=== PATIENT | female | born 1965 | race American Indian/Alaskan Native ===

== ENCOUNTER 2016-09-26 11:22 | Emergency (ER) | payer SELFPAY ==
[2016-09-26 11:40] VITALS: BP 122/75
--- NOTE | 2016-09-26 11:53 | Emergency Department Report ---
Chief Complaint: Nausea/Vomiting/Diarrhea Stated Complaint: STOMASCH VIRUS/NAUSEA/WEAKNESS Time Seen by Provider: 09/26/16 11:50 - HPI History of Present Illness: 51-year-old female with no prior history of present shortly nausea vomiting diarrhea 3 days. Patient states intermittent vomiting with intermittent nonbloody diarrhea. She denies abdominal pain, fever, chills, shortness of breath, chest pain - ROS Review of Systems: As noted in HPI - Exam Vital Signs: Vital Signs 09/26/16 11:36 Temperature 98.3 F Pulse Rate 100 H Respiratory 20 Rate Blood Pressure 122/75 O2 Sat by Pulse 97 Oximetry Physical Exam: GENERAL: Alert and oriented x3, no apparent distress, holding green bag, no active vomiting HEART: S1, S2 present, regular rate and rhythm without murmur, no rubs, no gallops. Non tender to palpation ABDOMEN: No organomegaly was noted,Positive bowel sounds, soft, and non- distended. . Nontender to palpation on all Quadrants, NO CVA tenderness. MSE screening note: Focused history and physical exam performed. Due to findings the following was ordered: ED Medical Decision Making - Medical Decision Making Labs ordered. Patient to be seen by fascia provider. ED Disposition for MSE Condition: Stable
== END 2016-09-26 16:25 | disposition left against medical advice (07) ==
LOC: ED 11:22
DX: R11.0 Nausea (principal); R53.1 Weakness; Z53.21 Procedure and treatment not carried out due to patient leaving prior to being seen by health care provider

== ENCOUNTER 2016-09-28 02:40 | Inpatient (IN) | payer MEDICAID ==
[2016-09-28 03:57] LABS: Alanine Aminotransferase 10 units/L (7-56); Albumin 4.4 g/dL (3.9-5); Albumin/Globulin Ratio 0.9 %; Alkaline Phosphatase 99 units/L (35-129); Anion Gap 28 mmol/L; BUN/Creatinine Ratio 31.66; Blood Urea Nitrogen 38 mg/dL (7-17); Calcium 9.8 mg/dL (8.4-10.2); Carbon Dioxide 24 mmol/L (22-30); Chloride 80.5 mmol/L (98-107); Lipase 13 units/L (13-60); Potassium 4.8 mmol/L (3.6-5.0); Sodium 128 mmol/L (137-145); Total Protein 9.1 g/dL (6.3-8.2)
[2016-09-28 04:08] LABS: Glucose 651 mg/dL (65-100)
[2016-09-28] MEDS ORDERED: NACL 0.9% 1000 ML 1,000 ML ONE (04:19)
[2016-09-28] MEDS ORDERED: ZOFRAN ONE (04:19)
[2016-09-28] MEDS ORDERED: ZOFRAN IV ONE ×2 (04:26→05:13)
[2016-09-28] MEDS ORDERED: NACL 0.9% 1000 ML 1,000 ML IV ONE ×2 (04:26→05:03)
[2016-09-28 04:39] LABS: Basophils % (Auto) 0.3 % (0.0-1.8); Eosinophils % (Auto) 0.1 % (0.0-4.3); Hematocrit 44.1 % (30.3-42.9); Hemoglobin 14.1 gm/dl (10.1-14.3); Mean Corpuscular HGB Conc 32 % (30-34); Mean Corpuscular Hemoglobin 26 pg (28-32); Mean Corpuscular Volume 81 fl (79-97); Platelet Count 261 K/mm3 (140-440); Red Blood Count 5.44 M/mm3 (3.65-5.03); Red Cell Distribution Width 12.6 % (13.2-15.2); White Blood Count 10.8 K/mm3 (4.5-11.0)
[2016-09-28] MEDS ORDERED: D50W (25GM) IV PRN (05:03)
--- NOTE | 2016-09-28 05:10 | Emergency Department Report ---
ED N/V/D HPI - General Chief complaint: Abdominal Pain Stated complaint: WEAKNESS, NAUSEA Time Seen by Provider: 09/28/16 04:26 Source: patient Mode of arrival: Wheelchair Limitations: No Limitations - History of Present Illness Initial comments: 51-year-old female presents to the emergency department complaining of nausea and vomiting. Patient states for the past 2 days she has been having intermittent abdominal pain, which has resolved. She began having nausea and vomiting this morning and has continued throughout the day and into the night. Patient reports generalized weakness. She denies diarrhea. She states she feels dehydrated. There are no other complaints. MD complaint: nausea, vomiting -: Gradual, This morning Description of Vomiting: food contents, watery Associated Abdominal Pain: No Consistency: constant Improves with: none Worsens with: none Associated Symptoms: denies other symptoms - Related Data Home Medications Medication Instructions Recorded Confirmed Last Taken Insulin Aspart [Novolog 100 25 unit SQ AC 12/13/12 12/13/12 12/13/12 09:00 UNITS/ML] metFORMIN [Glucophage] 500 mg PO BID 12/13/12 12/13/12 12/13/12 20:00 Previous Rx's Medication Instructions Recorded Last Taken Type Levofloxacin [Levaquin] 750 mg PO QDAY #10 tablet 12/16/12 Unknown Rx methOCARBAMOL [Robaxin] 500 mg PO BID PRN #30 tab 01/27/13 Unknown Rx HYDROcodone/APAP 5-325 [[place] 1 each PO Q6HR PRN #15 tablet 03/12/14 Unknown Rx 5-325 mg TAB] Ibuprofen [Motrin 800 MG tab] 800 mg PO Q8H PRN #30 tablet 03/12/14 Unknown Rx HYDROcodone/APAP 5-325 [[place] 1 - 2 each PO Q6HR PRN #14 tablet 06/02/14 Unknown Rx 5/325] Sulfamethoxazole/Trimethoprim 1 each PO BID #14 tablet 06/02/14 Unknown Rx [Bactrim Ds] Allergies Allergy/AdvReac Type Severity Reaction Status Date / Time seafood Allergy Rash Uncoded 06/04/14 13:22 ED Review of Systems ROS: Stated complaint: WEAKNESS, NAUSEA Other details as noted in HPI Comment: All other systems reviewed and negative Constitutional: weakness Gastrointestinal: nausea, vomiting ED Past Medical Hx - Past Medical History Previous Medical History?: Yes Hx Hypertension: Yes Hx Congestive Heart Failure: No Hx Diabetes: Yes Hx Asthma: No Hx COPD: No Additional medical history: PT DENIES ANY HX CARDIAC OR IRREG HEART. Glaucoma. Cataracts. Migraines. obesity - Surgical History Past Surgical History?: Yes Hx Appendectomy: Yes - Family History Family history: no significant - Social History Smoking Status: Never Smoker Substance Use Type: None - Medications Home Medications: Home Medications Medication Instructions Recorded Confirmed Last Taken Type Insulin Aspart [Novolog 100 25 unit SQ AC 12/13/12 12/13/12 12/13/12 09:00 History UNITS/ML] metFORMIN [Glucophage] 500 mg PO BID 12/13/12 12/13/12 12/13/12 20:00 History Levofloxacin [Levaquin] 750 mg PO QDAY #10 tablet 12/16/12 Unknown Rx methOCARBAMOL [Robaxin] 500 mg PO BID PRN #30 tab 01/27/13 Unknown Rx HYDROcodone/APAP 5-325 [[place] 1 each PO Q6HR PRN #15 tablet 03/12/14 Unknown Rx 5-325 mg TAB] Ibuprofen [Motrin 800 MG tab] 800 mg PO Q8H PRN #30 tablet 03/12/14 Unknown Rx HYDROcodone/APAP 5-325 [[place] 1 - 2 each PO Q6HR PRN #14 tablet 06/02/14 Unknown Rx 5/325] Sulfamethoxazole/Trimethoprim 1 each PO BID #14 tablet 06/02/14 Unknown Rx [Bactrim Ds] ED Physical Exam - General Limitations: No Limitations General appearance: alert, in no apparent distress - Head Head exam: Present: atraumatic, normocephalic - Eye Eye exam: Present: normal appearance, PERRL, EOMI - ENT ENT exam: Present: normal exam, normal orophraynx, mucous membranes moist - Neck Neck exam: Present: normal inspection, full ROM. Absent: tenderness - Respiratory Respiratory exam: Present: normal lung sounds bilaterally. Absent: respiratory distress - Cardiovascular Cardiovascular Exam: Present: regular rate, normal rhythm, normal heart sounds - GI/Abdominal GI/Abdominal exam: Present: soft, normal bowel sounds. Absent: distended, tenderness - Extremities Exam Extremities exam: Present: normal inspection, full ROM. Absent: tenderness - Back Exam Back exam: Present: normal inspection, full ROM. Absent: tenderness - Neurological Exam Neurological exam: Present: alert, oriented X3. Absent: motor sensory deficit - Skin Skin exam: Present: warm, dry, intact ED Course Vital Signs 09/28/16 02:50 Temperature 97.8 F Pulse Rate 102 H Respiratory 20 Rate Blood Pressure 138/92 [Right] O2 Sat by Pulse 100 Oximetry ED Medical Decision Making - Lab Data Result diagrams: 09/28/16 03:51 09/28/16 03:16 - EKG Data -: EKG Interpreted by Me EKG shows normal: sinus rhythm, axis, intervals, QRS complexes, ST-T waves Rate: normal - EKG Data When compared to previous EKG there are: no significant change Interpretation: normal EKG, unchanged when compared t (06/02/2014) - Medical Decision Making Laboratory results reviewed and discussed with the patient. Patient is being started on an insulin drip. She is being giving additional IV fluids. Patient is to be admitted by the hospitalist. - Differential Diagnosis dehydration, electrolyte abnormality, DKA Critical care attestation.: If time is entered above; I have spent that time in minutes in the direct care of this critically ill patient, excluding procedure time. ED Disposition Clinical Impression: Uncontrolled type 2 DM with hyperosmolar nonketotic hyperglycemia Disposition: -09 OP ADMIT IP TO THIS HOSP Is pt being admited?: Yes Condition: Stable Instructions: Abdominal Pain (ED), Diabetes Mellitus Type 2 in Adults (ED) Referrals: GRETEL AGUIRRE MD [Primary Care Provider] - 3-5 Days Time of Disposition: 05:11
[2016-09-28] MEDS ORDERED: BENADRYL ONE (05:11)
[2016-09-28] MEDS ORDERED: BENADRYL IV ONE (05:13)
[2016-09-28] MEDS ORDERED: TYLENOL PO PRN (05:43)
--- NOTE | 2016-09-28 05:50 | History and Physical Report ---
History of Present Illness Date of examination: 09/28/16 Date of admission: 09/28/16 05:11 Chief complaint: Chief complaint is nausea vomiting, other complaints include weakness, abdominal pain History of present illness: History of present illness, patient is a 51-year-old female who said she was having intermittent abdominal pain which stopped before patient came to the hospital and yesterday patient was having nausea vomiting and generalized weakness but denied history of chest pain, denied history of shortness of breath fever or chills, and there was also no history of dizziness and patient presented to the emergency room Past History Past Medical History: diabetes, hypertension, other (GLAUCOMA,CATARACT) Past Surgical History: appendectomy Family history: no significant family history Medications and Allergies Allergies Allergy/AdvReac Type Severity Reaction Status Date / Time seafood Allergy Rash Uncoded 06/04/14 13:22 Home Medications Medication Instructions Recorded Confirmed Last Taken Type metFORMIN [Glucophage] 500 mg PO BID 12/13/12 12/13/12 09/27/16 History Insulin Lispro [Humalog] 50 unit SQ BID 09/28/16 09/28/16 09/27/16 History Losartan/Hydrochlorothiazide 1 each PO 09/28/16 09/27/16 History [Losartan-Hctz 50-12.5 mg Tab] Active Meds: Active Medications Acetaminophen (Tylenol) 650 mg PO Q4H PRN PRN Reason: For Pain/Fever/Headache Dextrose (D50w (25gm)) 0 ml IV PRN PRN PRN Reason: Hypoglycemia Heparin Sodium (Porcine) (Heparin) 5,000 unit SUB-Q Q12HR ANAT Potassium Chloride/Dextrose/Sod Cl (D5w/0.45% Nacl/Kcl 20 Meq) 20 meq in 1,000 mls @ 125 mls/hr IV DIRECT ANAT Sodium Chloride (Nacl 0.9% 1000 Ml) 1,000 mls @ 999 mls/hr IV BOLUS ONE Stop: 09/28/16 06:03 Insulin Human Regular 100 (units/ Sodium Chloride) 100 mls @ 1 mls/hr IV TITR ANAT; 1 UNITS/HR PRN Reason: Protocol Sodium Chloride (Nacl 0.9% 1000 Ml) 1,000 mls @ 150 mls/hr IV DIRECT ANAT Ondansetron HCl (Zofran) 4 mg IV Q8H PRN PRN Reason: Nausea And Vomiting Review of Systems Constitutional: weakness, no weight loss, no weight gain, no fever, no chills, no sweats, no anorexia, no fatigue, no malaise, no lethargy, no poor appetite, no daytime sleepiness Eyes: bilateral: other (NO BILATERAL EYE SYMPTOMS) Ears, nose, mouth and throat: no ear pain, no ear discharge, no tinnitis, no decreased hearing, no nose pain, no nasal congestion, no nasal discharge, no bleeding gums, no dental pain, no mouth pain, no dysphagia, no hoarseness, no sore throat, no headache, no pain front of neck, no neck fullness/pressure Breasts: deferred Cardiovascular: no chest pain, no orthopnea, no palpitations, no rapid/ irregular heart beat, no edema, no syncope, no lightheadedness, no shortness of breath, no dyspnea on exertion, no paroxysmal nocturnal dyspnea, no claudication , no phlebitis, no high blood pressure, no leg edema Respiratory: no cough, no cough with sputum, no excessive sputum, no hemoptysis , no shortness of breath, no dyspnea on exertion, no congestion, no wheezing, no pleurisy, no pain, no pain on inspiration, no snoring, no respiratory infections, no home oxygen Gastrointestinal: abdominal pain, nausea, vomiting, no diarrhea, no constipation , no change in bowel habits, no hematemesis, no BRBPR, no melena, no hematochezia, no loss of appetite, no early satiety, no heartburn, no indigestion, no excessive gas, no jaundice, no dyspepsia/bloating, no early satiety, no lactose intolerance Genitourinary Female: no pelvic pain, no flank pain, no menorrhagia, no dysuria , no urinary frequency, no urgency, no stress incontinence, no post void dribbling, no incomplete emptying, no urge incontinence, no mixed incontinence, no vaginal discharge, no vaginal odor, no abnormal vaginal bleeding, no genital sores, no vaginal dryness, no decreased libido, no mood problems, no hot flashes , no prolapse symptoms, no Menstruation: no period heavy Rectal: no pain, no incontinence, no itching, no hemorrhoids, no flatulence Musculoskeletal: no neck stiffness, no neck pain, no shooting arm pain, no arm numbness/tingling, no low back pain, no shooting leg pain, no leg numbness/ tingling, no morning stiffness, no muscle weakness, no muscle cramps, no atrophy , no limitation of motion, no frequent falls, no fractures, no loss of height, no prior amputations Integumentary: no rash, no pruritis, no redness, no sores, no wounds, no jaundice, no boils, no bullae, no lesions, no darkening of skin, no depigmentation, no acne, no dryness, no color changes, no change in hair/nails, no brittle nails, no striae, no hirsutism, no foot/leg ulcers, no onychomycosis Neurological: weakness, no parathesias, no numbness, no tingling, no seizures, no syncope, no tremors, no ataxia, no lack of coordination, no headaches, no migraines, no convulsions, no aphasia, no change in speech, no change in mentation, no confusion, no memory loss, no changes in smell/taste, no motor disturbance, no sensory deficit, no double vision, no loss of vision, no hearing difficulties, no burning pain, no paralysis Psychiatric: no anxiety, no memory loss, no change in sleep habits, no sleep disturbances, no insomnia, no hypersomnia, no change in appetite, no change in libido, no suicidal ideation, no disorientation, no paranoia, no depression, no hopelessness, no anhedonia, no anxiety attacks, no difficulties concentrating, no confusion, no irritability, no sadness/tearfullness Endocrine: polyuria, nocturia, high blood sugars, no cold intolerance, no heat intolerance, no polyphagia, no polydipsia, no increase in ring/shoe/hat size, no proptosis, no deepening of the voice Hematologic/Lymphatic: no easy bruising, no easy bleeding, no lymphadenopathy, no lymphedema, no thrombophilia Allergic/Immunologic: no urticaria, no allergic rhinitis, no persistent infections, no gluten intolerance Exam - Constitutional Vitals: Temp Pulse Resp BP Pulse Ox 97.8 F 92 H 15 169/82 100 09/28/16 02:50 09/28/16 05:15 09/28/16 05:15 09/28/16 05:15 09/28/16 05:22 General appearance: Present: no acute distress. Absent: disheveled - EENT Eyes: Present: PERRL, EOM intact. Absent: irregular pupil, scleral icterus, conjunctival injection ENT: hearing intact, clear oral mucosa, dentition normal, no oropharyngeal erythema, no poor dentition, no edentulous - Neck Neck: Present: supple, normal ROM. Absent: rigidity, enlarged thyroid, masses or JVD, carotid bruits - Respiratory Respiratory effort: normal - Cardiovascular Rhythm: regular Heart Sounds: Present: S1 & S2. Absent: gallop, systolic murmur, diastolic murmur, click - Extremities Extremities: no ischemia, No edema Peripheral Pulses: within normal limits - Abdominal General gastrointestinal: Present: soft, non-tender, non-distended. Absent: tender, distended, rigid, absent bowel sounds, hepatomegaly, splenomegaly, mass Female genitourinary: Present: deferred - Rectal Rectal Exam: deferred - Integumentary Integumentary: Present: clear, warm, dry. Absent: erythema, jaundice, rash, clammy, normal turgor - Musculoskeletal Musculoskeletal: strength equal bilaterally - Psychiatric Psychiatric: appropriate mood/affect - Neurologic Neurologic: CNII-XII intact Results - Labs CBC & Chem 7: 09/28/16 03:51 09/28/16 03:16 Labs: Laboratory Last Values WBC 10.8 K/mm3 (4.5-11.0) 09/28/16 03:51 RBC 5.44 M/mm3 (3.65-5.03) H 09/28/16 03:51 Hgb 14.1 gm/dl (10.1-14.3) 09/28/16 03:51 Hct 44.1 % (30.3-42.9) H 09/28/16 03:51 MCV 81 fl (79-97) 09/28/16 03:51 MCH 26 pg (28-32) L 09/28/16 03:51 MCHC 32 % (30-34) 09/28/16 03:51 RDW 12.6 % (13.2-15.2) L 09/28/16 03:51 Plt Count 261 K/mm3 (140-440) 09/28/16 03:51 Lymph % (Auto) 15.6 % (13.4-35.0) 09/28/16 03:51 [place] % (Auto) 4.0 % (0.0-7.3) 09/28/16 03:51 Eos % (Auto) 0.1 % (0.0-4.3) 09/28/16 03:51 Baso % (Auto) 0.3 % (0.0-1.8) 09/28/16 03:51 Lymph # 1.7 K/mm3 (1.2-5.4) 09/28/16 03:51 [place] # 0.4 K/mm3 (0.0-0.8) 09/28/16 03:51 Eos # 0.0 K/mm3 (0.0-0.4) 09/28/16 03:51 Baso # 0.0 K/mm3 (0.0-0.1) 09/28/16 03:51 Seg Neutrophils % 80.0 % (40.0-70.0) H 09/28/16 03:51 Seg Neutrophils # 8.7 K/mm3 (1.8-7.7) H 09/28/16 03:51 VBG pH 7.347 (7.320-7.420) 09/28/16 03:16 Sodium 128 mmol/L (137-145) L 09/28/16 03:16 Potassium 4.8 mmol/L (3.6-5.0) 09/28/16 03:16 Chloride 80.5 mmol/L (98-107) L 09/28/16 03:16 Carbon Dioxide 24 mmol/L (22-30) 09/28/16 03:16 Anion Gap 28 mmol/L 09/28/16 03:16 BUN 38 mg/dL (7-17) H 09/28/16 03:16 Creatinine 1.2 mg/dL (0.7-1.2) 09/28/16 03:16 Estimated GFR 57 ml/min 09/28/16 03:16 BUN/Creatinine Ratio 31.66 % 09/28/16 03:16 Glucose 651 mg/dL (65-100) H* 09/28/16 03:16 POC Glucose > 500 (70-105) H 09/28/16 04:51 Lactic Acid 2.80 mmol/L (0.7-2.0) H* 09/28/16 03:16 Calcium 9.8 mg/dL (8.4-10.2) 09/28/16 03:16 Total Bilirubin 0.40 mg/dL (0.1-1.2) 09/28/16 03:16 AST 9 units/L (5-40) 09/28/16 03:16 ALT 10 units/L (7-56) 09/28/16 03:16 Alkaline Phosphatase 99 units/L (35-129) 09/28/16 03:16 Troponin T < 0.010 ng/mL (0.00-0.029) 09/28/16 03:16 Total Protein 9.1 g/dL (6.3-8.2) H 09/28/16 03:16 Albumin 4.4 g/dL (3.9-5) 09/28/16 03:16 Albumin/Globulin Ratio 0.9 % 09/28/16 03:16 Lipase 13 units/L (13-60) 09/28/16 03:16 Assessment and Plan - Patient Problems (1) Uncontrolled type 2 DM with hyperosmolar nonketotic hyperglycemia Current Visit: Yes Status: Acute Plan to address problem: Patient will be admitted to ICU, and will be on IV insulin drip protocol with Accu-Chek every hour and basic metabolic panel checked every 2 hours, patient will be on IV normal saline at 150 mL an hour I will be on IV morphine 2 mg every 4 hours as needed for pain and IV Zofran 4 mg every 6 hours for nausea and vomiting, patient will be on Tylenol 650 mg by mouth every 4 hours for fever or headache. IV fluid will be changed to D5 half-normal with potassium supplement when the blood sugar is below 250 mg by deciliter
[2016-09-28] MEDS ORDERED: NACL 0.9% 1000 ML 1,000 ML IV SCH (06:00)
[2016-09-28] MEDS ORDERED: D5W/0.45% NACL/KCL 20 MEQ 20 MEQ/1,000 ML BAG IV SCH (06:00)
[2016-09-28] MEDS ORDERED: NovoLIN R 100 UNITS in NACL 0.9% 99 ML IV SCH (06:00)
[2016-09-28 06:18] LABS: Anion Gap 29 mmol/L; BUN/Creatinine Ratio 35.45; Blood Urea Nitrogen 39 mg/dL (7-17); Calcium 9.4 mg/dL (8.4-10.2); Carbon Dioxide 24 mmol/L (22-30); Chloride 84.5 mmol/L (98-107); Potassium 5.8 mmol/L (3.6-5.0); Sodium 132 mmol/L (137-145)
[2016-09-28 06:20] LABS: Glucose 664 mg/dL (65-100)
--- NOTE | 2016-09-28 07:24 | Admit Criteria Form ---
Admission Criteria Documentation: GENERAL ADMISSION CRITERIA (Place 'X' for any and all applicable criteria): Admission is indicated for ANY ONE of the following: [ ]I. Hemodynamic instability as indicated by ANY ONE of the following(1)(2) (3)(4)(5): [ ]a) Vital sign abnormality not readily corrected by appropriate treatment within 12 to 24 hours indicated by ANY ONE of the following: [ ]i) Hypotension [ ]ii) Symptomatic Tachycardia unresponsive to treatment (eg , analgesia, fluids, sedation as indicated) [ ]iii) Orthostatic vital sign changes unresponsive to treatment (eg, fluids) [ ]b) Vital sign abnormality that is severe indicated by ANY ONE of the following: [ ]i) Inadequate perfusion indicated by ANY ONE of the following: [ ]1) Lactic acidosis (greater than 2 mmol/L) [ ]2) New abnormal capillary refill (greater than 3 seconds) [ ]3) Other metabolic acidosis (arterial pH less than 7.35) not otherwise explained [ ]4) Reduced urine output [ ]5) Altered mental status [ ]6) Myocardial Ischemia [ ]v) Mean arterial pressure[A] less than 60 mm Hg [ ]vi) Mean arterial pressure[A] less than 70 mm Hg after 30 minutes of appropriate treatment (eg, fluid resuscitation) [ ]vii) IV inotropic or vasopressor medication required to maintain adequate blood pressure or perfusion [ ]viii) Sustained heart rate greater than 120 beats per minute in adult or child 6 years or older[B]] [ ]II. Hypertension requiring inpatient treatment as indicated by ANY ONE of the following(6)(7)(8): [ ]a) SBP greater than 220 mm Hg or DBP greater than 120 mm Hg despite treatment [ ]b) SBP greater than 140 mm Hg or DBP greater than 100 mm Hg with evidence of acute end organ damage as indicated by ANY ONE of the following: [ ]i) Encephalopathy [ ]ii) Acute renal failure as indicated by new onset of ANY ONE of the following(9)(10)(11)(12)(13): [ ]1) A 3-fold rise in serum creatinine from baseline [ ]2) Serum creatinine greater than 4 mg/dL ( 354 micromoles/L) with acute rise greater than 0.5 mg/dL (44.2 micromoles/L) [ ]3) Reduction of more than 75% in estimated glomerular filtration rate from baseline [ ]4) Estimated glomerular filtration rate less than 35 mL/min/1.73m2 (0.59 mL/sec/1.73m2) in child up to 18 years of age [ ]5) Cessation of urine output indicated by ALL of the following: [ ]A. Adequate volume status [ ]B. Inadequate urine output as indicated by ANY ONE of the following: [ ]a. Urine output less than 0.3 mL/kg/hr for 24 hours [ ]b. Anuria (urine output less than 0.1 mL/kg/hr) for 12 hours [ ]iii) Aortic dissection [ ]iv) Myocardial ischemia [ ]v) Left ventricular heart failure [ ]vi) Retinal hemorrhage [ ]vii) Other significant finding [ ]c) Hypertension in child requiring inpatient treatment as indicated by ALL of the following(14)(15)(16): [ ]i) Outpatient treatment not effective, not available, or not appropriate [ ]ii) SBP or DBP greater than 95th percentile for age [ ]iii) Evidence of acute end organ damage as indicated by ANY ONE of the following: [ ]1) Altered mental status [ ]2) Acute renal failure as indicated by new onset of ANY ONE of the following(9)(10)(11)(12)(13): [ ]A. A 3-fold rise in serum creatinine from baseline [ ]B. Serum creatinine greater than 4 mg/dL (354 micromoles/L) with acute rise greater than 0.5 mg/dL (44.2 micromoles/L) [ ]C. Reduction of more than 75% in estimated glomerular filtration rate from baseline [ ]D. Estimated glomerular filtration rate less than 35 mL/min/1.73m2 (0.59 mL/sec/1.73m2)in child up to 18 years of age [ ]E. Cessation of urine output indicated by ALL of the following: [ ]a. Adequate volume status [ ]b. Inadequate urine output as indicated by ANY ONE of the following: [ ]1) Urine output less than 0.3 mL/kg/hr for 24 hours [ ]2) Anuria (urine output less than 0.1 mL/kg/hr) for 12 hours [ ]3) Severe headache [ ]4) Visual disturbance [ ]5) Retinal hemorrhage [ ]6) Other significant finding [ ]III. Acute cardiac or peripheral ischemia as indicated by ANY ONE of the following: [ ]a) Acute coronary syndrome(17)(18) [ ]b) Acute peripheral ischemia (eg, pulseless, cool, mottled, or cyanotic extremity)(19) [ ]IV. Cardiac arrhythmias or findings of immediate concern indicated by ANY ONE of the following(20)(21): [ ]a) Heart rhythms that are inherently dangerous or unstable indicated by ANY ONE of the following(22)(23)(24): [ ]i) Resuscitated ventricular fibrillation or cardiac arrest [ ]ii) Ventricular escape rhythm [ ]iii) Sustained ventricular tachycardia (30 seconds or more of ventricular rhythm at greater than 100 beats per minute) [ ]iv) Nonsustained ventricular tachycardia and ANY ONE of the following: [ ]1) Suspected cardiac ischemia as cause or consequence of ventricular tachycardia [ ]2) In setting of acute myocarditis [ ]b) Unstable cardiac conduction defects indicated by ANY ONE of the following(24)(25)(26): [ ]i) Type II second-degree atrioventricular block [ ]ii) Third-degree atrioventricular block [ ]iii) New-onset left bundle branch block with suspected myocardial ischemia [ ]c) Any heart rhythm and ANY ONE of the following(22)(23)(27)(28)( 29): [ ] i) Continuous long-term ECG monitoring needed (eg, initiation of drug requiring monitoring for more than 24 hours) [ ] ii) Patient has automatic implanted cardioverter defibrillator that is repeatedly firing, malfunctioning, or in need of immediate adjustment of settings beyond the scope of ambulatory or observation care. [ ]d) Heart rhythms of concern due to ANY ONE of the following: [ ]i) Hypotension [ ]ii) Respiratory distress [ ]iii) Association with other significant symptoms (eg, bradycardia with syncope or ongoing dizziness, supraventricular tachycardia with chest pain) (27)(28) (30) [ ] V. Severe heart failure as indicated by ANY ONE of the following ( 31)(32): [ ]a) Respiratory distress [ ]b) Hypotension [ ]c) Anasarca (refractory to outpatient therapy) [ ]d) Cardiac arrhythmias of immediate concern [ ]e) Myocardial ischemia [ ]. Respiratory abnormalities, including ANY ONE of the following(33)(34) (35)(36): [ ]a) Respiratory rate greater than 30 breaths per minute unresponsive to treatment [A] [ ]b) New saturation of arterial oxygen less than 90% [ ]c) New partial pressure of carbon dioxide greater than 44 mm Hg ( 5.9 kPa) [ ]d) Supplemental oxygen or respiratory treatments needed that are new or not performable at other levels of care [ ]e) New-onset cyanosis [ ]f) Inability to protect airway [ ]g) Chronic lung disease with severe deterioration (not responsive to emergency and observation care treatment as appropriate) as indicated by ANY ONE of the following(34)(36 ): [ ]i) SaO2 5% below baseline in patient with chronic hypoxemia [ ]ii) New requirement for supplemental oxygen to keep SaO2 at baseline or acceptable level [ ]iii) Required supplemental oxygen performable only in acute inpatient setting [ ]iv) Severe airflow or ventilation abnormalities [ ]v) Previously mobile patient unable to walk between rooms [ ]vi Inability to eat or sleep due to dyspnea [ ]vii) Rapid rate of exacerbation onset [ ]viii) Altered mental status ]VII. Severe airflow or ventilation abnormalities (not responsive to emergency and observation care treatment as appropriate) as indicated by ANY ONE of the following(33)(34)(35)(37): [ ]a) PCO2 greater than 42 mm Hg (5.6 kPa) and pH less than 7.35 (new ) [ ]b) Documented PCO2 increased more than 5 mm Hg (0.7 kPa) from disease baseline [ ]c) Airflow measurements [B] less than 60% of previous best or predicted (eg, peak expiratory flow rate less than 300 L/minute) despite intensive emergent treatment [C] [ ]d) Required respiratory treatments that are performable only in acute inpatient setting [ ]VIII. Impending or actual respiratory arrest ( Also use Respiratory Failure GRG for severe respiratory disease and long-term mechanical ventilation patients) [ ]IX. Neurologic abnormalities, including ANY ONE of the following: [ ]a) New findings that suggest ANY ONE of the following: [ ]i) MARKETING MGR infection(38) [ ]ii) Cerebral bleeding, ischemia, or vasospasm(39)(40) [ ]iii) Increased intracranial pressure, hydrocephalus, or cerebral edema(41)(42)(43) [ ]iv) Spinal cord injury(44) [ ]b) Uncontrolled seizures(45) [ ]c) New-onset coma (eg, Ravenel coma scale score less than 9) or unexplained abnormal mental status (eg, Ravenel coma scale score less than 14) [D](41)(46)(47) [ ]X. New-onset severe neurologic findings requiring inpatient care; examples include(42)(48)(49): [ ]a) Papilledema [ ]b) Cerebral edema [ ]c) Mass effect on CT scan [ ]XI. Suspected acute intra-abdominal process with peritoneal signs, abdominal mass, or similar findings (50)(51)(52) [X ]XII. Severe physiologic disorder remaining after emergency or observation level care (as appropriate) as indicated by ANY ONE of the following (53): [ ]a) Significant dehydration [ ]b) Diabetic ketoacidosis [X ]c) Hyperglycemic hyperosmolar state (eg, osmolality greater than 320 mOsm/kg (mmol/kg) [ ]d) Hypoglycemia [ ]e) Other (new) acid-base disorder with pH less than 7.35 or greater than 7.5(54) [ ]f) Thyroid storm (55) [ ]g) Myxedema coma (55) [ ]XIII. Abdominal abnormalities with ANY ONE of the following(56)(57): [ ]a) Absent bowel sounds with complete ileus [ ]b) Signs of intestinal obstruction or peritonitis [E] [ ]c) Nausea and vomiting that cannot be controlled with outpatient or observation care [ ]XIV. Acute renal failure as indicated by new onset of ANY ONE of the following(9)(10)(11)(12)(13): [ ]a) A 3-fold rise in serum creatinine from baseline [ ]b) Serum creatinine greater than 4 mg/dL (354 micromoles/L) with acute rise greater than 0.5 mg/dL (44.2 micromoles/L) [ ]c) Reduction of more than 75% in estimated glomerular filtration rate from baseline [ ]d) Estimated glomerular filtration rate less than 35 mL/min/ 1.73m2 (0.59 mL/sec/1.73m2) in child up to 18 years of age [ ]e) Cessation of urine output indicated by ALL of the following: [ ]i) Adequate volume status [ ]ii) Inadequate urine output as indicated by ANY ONE of the following: [ ]1) Urine output less than 0.3 mL/kg/hr for 24 hours [ ]2) Anuria (urine output less than 0.1 mL/kg/hr) for 12 hours [ ]XV. Significant uremic complications as indicated by ANY ONE of the following(58)(59)(60): [ ]a) Outpatient therapy is ineffective or not feasible for ANY ONE of the following: [ ]i) Severe heart failure [ ]ii) Severehypertension [ ]iii) Pleural effusion [ ]iv) Pericarditis or pericardial effusion [ ]b) Cardiac arrhythmias of immediate concern [ ]c) Intractable nausea or vomiting [ ]d) Recurrent seizures [ ]e) Encephalopathy [ ]f) Bleeding abnormalities (eg, platelet dysfunction) with active (eg, gastrointestinal) bleeding [ ]g) Dialysis indicated before long-term access or ambulatory arrangements can be made [ ]h) Significant metabolic or electrolyte abnormalities (eg, severe acidosis or hyperkalemia) [ ]XVI. High fever or other high-risk infection situation as indicated by ANY ONE of the following(61)(62)(63)(64): [ ]a) Outpatient and observation care antimicrobial treatment unavailable, not effective, or not appropriate [ ]b) Documented bacteremia [ ]c) Temperature greater than 40.5 degrees C (104.9 degrees F) ( oral) [ ]d) Temperature greater than 39.5 degrees C (103.1 degrees F) ( oral) or less than 36 degrees C (96.8 degrees F) (rectal) that does not respond to e treatment and observation care [ ] XVII. Temperature less than 95 degrees F (35 degrees C)(rectal)(65) [ ] XVIII. Severe nutritional abnormalities as indicated by ALL of the following (66)(67): [ ]a) Inability to tolerate or establish sufficient oral or other enteral nutrition in outpatient setting [ ]b) Parenteral nutrition regimen need that must be implemented on inpatient basis [ ] XIX. Severe electrolyte abnormalities indicated by ALL of the following(68) (69)(70): [ ]a) Electrolytes and associated findings are not as expected for patient baseline or acceptable treatment effects. [ ]b) Severe abnormalities indicated by ANY ONE of the following: [ ]i) Sodium less than 130 mEq/L (mmol/L) (new) [ ]ii)Sodium less than 135 mEq/L (mmol/L) with ANY ONE of the following: [ ]1) Uncorrectable (to near normal or chronic baseline) after trial of outpatient and emergency treatment [ ]2) Altered mental status [ ]3) Seizures [ ]4) Severe medical etiology requiring inpatient management (eg, heart failure, hypovolemia) [ ]iii) Sodium greater than 155 mEq/L (mmol/L) [ ]iv) Sodium greater than 150 mEq/L (mmol/L) with ANY ONE of the following: [ ]1) Uncorrectable (to near normal or chronic baseline) with outpatient and emergency treatment [ ]2) Altered mental status [ ]3) Seizures [ ]4) Severe medical etiology (eg, hypovolemia, diabetes insipidus) [ ]v) Potassium less than 2.5 mEq/L (mmol/L) despite outpatient and emergency treatment [ ]vi) Potassium less than 3 mEq/L (mmol/L) with ANY ONE of the following: [ ]1) Weakness [ ]2) Cardiac abnormality (eg, arrhythmia, conduction disturbance) [ ]3) Cardiac ischemia [ ]4) Ileus [ ]5) Ongoing medical cause requiring inpatient management (eg, acute renal wasting or SIADH) [ ]6) Other severe symptoms [ ]vii) Potassium greater than 6.5 mEq/L (mmol/L) [ ]viii) Potassium greater than 5 mEq/L (mmol/L) with ANY ONE of the following: [ ]1) Uncorrectable (to near normal or chronic baseline) with outpatient and emergency treatment [ ]2) Severe ECG findings [F] [ ]3) Acute worsening of renal failure (creatinine greater than 2.5 mg/dL (221 micromoles/L) or significant elevation for age and size) [ ]4) Severe weakness [ ]5) Severe medical etiology (eg, hemolysis, infection, drug overdose) [ ]ix) Calcium less than 7 mg/dL (1.75 mmol/L) despite outpatient and emergency treatment (72) [ ]x) Calcium less than 8 mg/dL (2 mmol/L) with significant symptoms or findings; examples include(72): [ ]1) Altered mental status [ ]2) Muscle spasms [ ]3) Seizures [ ]4) Breathing difficulty [ ]5) Cardiac abnormality (eg, arrhythmia or conduction disturbance) [ ]xi) Calcium greater than 14 mg/dL (3.5 mmol/L)(72) [ ]xii) Calcium greater than 12 mg/dL (3 mmol/L) with ANY ONE of the following(72): [ ]1) Uncorrectable (to near normal or chronic baseline) with outpatient and emergency treatment [ ]2) Significant dehydration or hypovolemia as indicated by ALL of the following(70)(73)(74): [ ]A. Not resolved with initial treatments [ ]B. Clinically significant dehydration as indicated by ANY ONE of the following: [ ]a. Vomiting refractory to outpatient treatment (ie, precluding oral rehydration) [ ]b. Inability to drink [ ]c. Hypernatremia or other electrolyte abnormality unable to be corrected with outpatient and emergency treatment [ ]d. Failure to remain hydrated with outpatient therapy [ ]e. Reduced urine output [ ]f. Hypotension [ ]g. Serious cause for dehydration requiring acute hospitalization (eg, bowel obstruction, increased intracranial pressure, infectious cause) [ ]h. Child with ANY ONE of the following(75): [ ]1) Severe abdominal tenderness [ ]2) Adequate care not available at home [ ]3) Severe dehydration ( greater than 9% loss of body weight) [ ]4) Significant symptoms or findings; examples include: [ ]A. Altered mental status [ ]B. Cardiac abnormality (eg, arrhythmia, conduction disturbance) [ ]C. Malignant etiology requiring inpatient treatment [ ]xiii) Phosphorus less than 1 mg/dL (0.32 mmol/L) [ ]xiv) Phosphorus less than 1.5 mg/dL (0.48 mmol/L) with ANY ONE of the following: [ ]1) Patient unresponsive to outpatient and emergency treatment [ ]2) Significant symptoms or findings; examples include: [ ]A. Weakness [ ]B. Altered mental status [ ]C. Breathing difficulty [ ]D. Seizures [ ]E. Rhabdomyolysis [ ]xv) Phosphorus greater than 10 mg/dL (3.2 mmol/L) [ ]xvi) Phosphorus greater than 4.5 mg/dL (1.45 mmol/L) (new) with ANY ONE of the following: [ ]1) Severe medical etiology (eg, crush injury, acute renal failure) [ ]2) Associated hypocalcemia with significant findings; examples include: [ ]A. Neurologic symptoms [ ]B. Altered mental status [ ]C. Muscle spasms [ ]D. Seizures [ ]E. Breathing difficulty [ ]F. Cardiac abnormality (eg, arrhythmia, conduction disturbance) [ ]xvii) Magnesium less than 1 mg/dL (0.41 mmol/L) [ ]xviii) Magnesium less than 1.5 mg/dL (0.62 mmol/L) with ANY ONE of the following: [ ]1) Patient unresponsive to outpatient and emergency treatment [ ]2) Associated hypocalcemia with significant findings; examples include: [ ]A. Altered mental status [ ]B. Muscle spasms [ ]C. Seizures [ ]D. Breathing difficulty [ ]E. Cardiac abnormality (eg, arrhythmia , conduction disturbance) [ ]3) Associated hypokalemia (potassium less than 3 mEq/L (mmol/L)) with risk of arrhythmia [ ]xix) Magnesium greater than 4 mEq/L (2 mmol/L) [ ]xx) Magnesium greater than 2.5 mEq/L (1.25 mmol/L) with significant symptoms or findings; examples include: [ ]1) Weakness [ ]2) Altered mental status [ ]3) Cardiac abnormality (eg, arrhythmia, conduction disturbance) [ ]4) Breathing difficulty [ ]5) Severe medical etiology (eg, renal failure, hypovolemia) [ ]xxi) Uric acid greater than 20 mg/dL (1190 micromoles/L)(76) [ ]xxii) Uric acid greater than 8 mg/dL (476 micromoles/L) with significant symptoms or findings of tumor lysis syndrome; examples include(76): [ ]1) Creatinine greater than 1.5 times upper limit of normal [ ]2) Cardiac abnormality (eg, arrhythmia, conduction disturbance) [ ]3) Seizure [ ]XX. Acute blood loss causing significant abnormality as indicated by ANY ONE of the following(77)(78): [ ]a) Hemoglobin less than 10 g/dL (100 g/L) (not baseline) [ ]b) Hematocrit less than 30% (0.30) (not baseline) [ ]c) Repeat hematocrit decreased more than 2% (0.02) [ ]d) Uncontrolled bleeding [ ]XXI. Severe anemia indicated by ANY ONE of the following(78)(79): [ ]a) Altered mental status [ ]b) Chest pain [ ]c) Exertional dyspnea [ ]d) Syncope [ ]e) Other findings suggesting inadequate perfusion [ ]f) Treatment with transfusion or volume replacement is ineffective at resolving ANY ONE of the following [G]: [ ]i) Tachycardia for age [ ]ii) Orthostatic vital sign changes as indicated by ANY ONE of the following(80): [ ]1) Fall in SBP of 20 mm Hg or more 1 to 3 minutes after patient sits or stands from recumbent position [ ]2) Fall in DBP of 10 mm Hg or more 1 to 3 minutes after patient sits or stands from recumbent position [ ]XXII. High-risk low platelet count as indicated by ANY ONE of the following( 81)(82): [ ]a) Severe or life-threatening bleeding (eg, intracranial, major gastrointestinal, or extensive mucosal bleeding), with any reduced platelet count [ ]b) Platelet count less than 20,000/mm3 (20 x109/L) with any active bleeding [ ]c) Platelet count less than 10,000/mm3 (10 x109/L) with minor purpura or petechiae [ ]d) Platelet count less than 5000/mm3 (5 x109/L) [ ]e) Low platelet count with hemolytic anemia [ ]XXIII. Disseminated intravascular coagulation(77)(83) [ ]XXIV. Severe adverse drug or systemic toxin reaction requiring inpatient treatment; examples include(84)(85): [ ]a) Serotonin syndrome(86) [ ]b) Neuroleptic malignant syndrome(86) [ ]c) Cholinergic syndrome with severe symptoms (eg, bronchorrhea, weakness, mental status changes, seizures) [ ]d) Sympathetic syndrome with severe symptoms (eg, seizures, mental status changes, cardiac dysrhythmias) [ ]e) Anticholinergic syndrome [ ]XXV. Severe pain requiring acute inpatient management as indicated by ALL of the following (87)(88)(89): [ ]a) Continuous or frequent (eg, every 2 to 4 hours) parenteral analgesics required [H] [ ]b) Rapid improvement expected from treatment or acute intervention (eg, surgery, anesthesia procedure) [ ]XXVI.Severe behavioral health issues judged unmanageable at a lower level of care (eg, residential) in a patient who is ANY ONE of the following(91) [ ]a) Acutely suicidal [ ]b) A danger to self (eg, self-mutilating or suicidal behavior) [ ]c) A danger to others (eg, assaultive or homicidal behavior) [ ]d) Incapacitated because of grave disability (eg, inability to provide for self at lower level of care) (92) [ ]XXVII. Inpatient monitoring needed; examples include(1)(3)(87)(93)(94)(95)(96 ): [ ]a) Vital signs, neurologic signs, or vascular checks more frequently than every 4 hours [ ]b) Cardiac or respiratory monitoring beyond the scope (eg, over 24 hours) of observation care [ ]c) Pulmonary artery catheter monitoring [ ]d) Suspected compartment syndrome(97) (98) [ ]e) Cerebral bleeding, hydrocephalus, or vasospasm monitoring [ ]f) Increased intracranial pressure or cerebral edema monitoring [ ]g) monitoring [ ]XXVIII. Treatment requiring inpatient care; examples include: [ ]a) IV fluid to replace significant ongoing losses (greater than 3 L/m2 per day)(53) [ ]b) High concentration oxygen (greater than 40%)(33)(99)(100) [ ]c) Frequent respiratory therapy (more frequently than every 4 hours) to maintain airflow rates greater than 60% of baseline(33)(99)(100) [ ]d) Epidural analgesia(87) [ ]e) IV anticoagulation, vasoactive, or antiarrhythmic medication(19 )(23) [ ]f) Acute thrombolytics (generally require 24 hours of observation )(101)(102) [ ]XXIX. Emergency procedures needed; examples include: [ ]a) Emergency inpatient surgery [ ]b) Temporary pacemaker placement(103) [ ]c) Chest tube placement with active evacuation (eg, suction, drainage)(104) [ ]d) Emergent cardioversion(105) [ ]e) Emergent cardiac or vascular procedures (eg, cardiac catheterization, angioplasty) (17)(18) [ ]f) Emergent dialysis access placement and institution(10)(106) [ ]g) Emergent pericardiocentesis(107) [ ]h) Emergent plasmapheresis or leukapheresis(83) [ ]i) Emergent tracheostomy The original [email or web address] content created by [email or web address] has been revised. The portions of the content which have been revised are identified through the use of italic text or in bold, and [email or web address] has neither reviewed nor approved the modified material. All other unmodified content is copyright [email or web address]. Please see references footnoted in the original [email or web address] edition 2016 Admission Criteria Met: Yes
[2016-09-28 07:43] LABS: Magnesium 2.7 mg/dL (1.7-2.3); Phosphorous 6.5 mg/dL (2.5-4.5)
--- NOTE | 2016-09-28 07:50 | XRay Report ---
AP CHEST: HISTORY: Shortness of breath AP view of the chest demonstrates a normal mediastinal and cardiac contour with clear lungs and normal bony and soft tissue structures. IMPRESSION: Unremarkable AP chest.
[2016-09-28 08:09] LABS: Bilirubin,Urine NEG (Negative); Blood,Urine NEG (Negative); Ketones,Urine 20 mg/dL (Negative); Leukocyte Esterase,Urine NEG (Negative); Mucus,Urine FEW /HPF; Nitrite,Urine NEG (Negative); Protein,Urine <15 mg/dL mg/dL (Negative); Urobilinogen,Urine < 2.0 mg/dL (<2.0); WBC,Urine < 1.0 /HPF (0.0-6.0)
[2016-09-28 08:19] LABS: Calcium 9.3 mg/dL (8.4-10.2); Chloride 91.5 mmol/L (98-107); Potassium 4.9 mmol/L (3.6-5.0)
[2016-09-28] MEDS: COZAAR PO SCH (08:30)
[2016-09-28] MEDS: HCTZ PO SCH (08:30)
[2016-09-28] MEDS: HEPARIN SUB-Q SCH ×2 (09:07→23:54)
[2016-09-28] MEDS: ZOFRAN IV PRN ×2 (11:25→19:25)
[2016-09-28 12:36] LABS: Hematocrit 42.8 % (30.3-42.9); Hemoglobin 13.5 gm/dl (10.1-14.3)
[2016-09-28 12:39] LABS: Anion Gap 21 mmol/L; Blood Urea Nitrogen 33 mg/dL (7-17); Calcium 9.4 mg/dL (8.4-10.2); Carbon Dioxide 29 mmol/L (22-30); Chloride 95.7 mmol/L (98-107); Glucose 339 mg/dL (65-100); Potassium 4.3 mmol/L (3.6-5.0); Sodium 141 mmol/L (137-145)
[2016-09-28] MEDS ORDERED: MORPHINE IV PRN (12:42)
--- NOTE | 2016-09-28 13:51 | Cat Scan Report ---
CT ABDOMEN WITHOUT CONTRAST History: Coffee ground emesis. Technique: Helical CT without IV contrast. Sagittal and coronal reformatted images. Findings: No relevant comparison. The lung bases are clear. Normal heart size. Unremarkable bony structures. The stomach and visualized bowel loops are within normal limits. No evidence for inflammation, mass or large area of ulceration. The liver, biliary system, pancreas, spleen, adrenal glands and left kidney are unremarkable. There is a complex predominantly cystic mass projecting from the anterior portion of the right kidney measuring 9.2 x 8.1 x 7.4 cm. The mass contains multiple relatively thin internal septae and scattered peripheral calcifications. The aorta is normal caliber. No evidence for adenopathy, ascites or inflammatory changes. Impression: No clear explanation for coffee ground emesis. Complex right renal mass as described above. 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 Consider consultation with urology.
--- NOTE | 2016-09-28 14:33 | Gastroenterology Consultation ---
History of Present Illness - Reason for Consult Consult date: 09/28/16 GI bleed Requesting physician: PAULETTE GOMEZ - History of Present Illness Patient is a 51 y/o female who presented to the ER with c/o N/V and intermittent abd pain x 2 days. Pt's blood glucose was found to be greater than 600 and she was placed on an insulin gtt. While in ER, pt continued to have N/V with first few episodes with bile colored emesis, and then developed coffee- ground emeiss x 2 episodes. Pt resting on stretcher, no acute distress noted. She denies abd pain at this time but still c/o nausea. Denies fever, wt loss, CP , SOB, dysphagia, melena, diarrhea, or hematochezia. Reports occasional heartburn with eating spicy foods. No NSAID use or ETOH abuse. No known hx of PUD or liver disease. No previous EGD per pt. PMH significant for HTN and DM. Past History Past Medical History: diabetes, hypertension, other (GLAUCOMA,CATARACT) Past Surgical History: appendectomy Social history: lives with family. denies: smoking, alcohol abuse Family history: no significant family history Medications and Allergies Allergies Allergy/AdvReac Type Severity Reaction Status Date / Time seafood Allergy Rash Uncoded 06/04/14 13:22 Home Medications Medication Instructions Recorded Confirmed Last Taken Type metFORMIN [Glucophage] 500 mg PO BID 12/13/12 09/28/16 09/27/16 History Insulin Lispro [Humalog] 50 unit SQ BID 09/28/16 09/28/16 09/27/16 History Losartan/Hydrochlorothiazide 1 each PO QDAY 09/28/16 09/28/16 09/27/16 History [Losartan-Hctz 50-12.5 mg Tab] Active Meds: Active Medications Acetaminophen (Tylenol) 650 mg PO Q4H PRN PRN Reason: For Pain/Fever/Headache Last Admin: 09/28/16 08:35 Dose: 650 mg Dextrose (D50w (25gm)) 0 ml IV PRN PRN PRN Reason: Hypoglycemia Heparin Sodium (Porcine) (Heparin) 5,000 unit SUB-Q Q12HR ANAT Last Admin: 09/28/16 09:07 Dose: 5,000 unit Hydralazine HCl (Apresoline) 10 mg IV Q4H PRN PRN Reason: Hypertension Hydrochlorothiazide (Hctz) 12.5 mg PO QDAY ANAT Last Admin: 09/28/16 08:30 Dose: 12.5 mg Potassium Chloride/Dextrose/Sod Cl (D5w/0.45% Nacl/Kcl 20 Meq) 20 meq in 1,000 mls @ 125 mls/hr IV DIRECT ANAT Insulin Human Regular 100 (units/ Sodium Chloride) 100 mls @ 1 mls/hr IV TITR ANAT; 1 UNITS/HR PRN Reason: Protocol Last Titration: 09/28/16 11:18 Dose: 7 units/hr, 7 mls/hr Sodium Chloride (Nacl 0.9% 1000 Ml) 1,000 mls @ 150 mls/hr IV DIRECT ANAT Losartan Potassium (Cozaar) 50 mg PO QDAY ANAT Last Admin: 09/28/16 08:30 Dose: 50 mg Morphine Sulfate (Morphine) 4 mg IV Q3H PRN PRN Reason: Pain , Severe (7-10) Morphine Sulfate (Morphine) 2 mg IV Q4H PRN PRN Reason: Pain, Moderate (4-6) Ondansetron HCl (Zofran) 4 mg IV Q8H PRN PRN Reason: Nausea And Vomiting Last Admin: 09/28/16 11:25 Dose: 4 mg Review of Systems - Review of Systems Gastrointestinal: abdominal pain, nausea, vomiting, coffee ground emesis Exam - Constitutional Vital Signs: Temp Pulse Resp BP Pulse Ox 97.8 F 103 H 13 134/66 98 09/28/16 02:50 09/28/16 13:31 09/28/16 13:31 09/28/16 13:31 09/28/16 13:31 General appearance: mild distress, obese - EENT Eyes: PERRL, EOM intact ENT: hearing intact - Neck Neck: supple, normal ROM - Respiratory Respiratory: bilateral: CTA - Cardiovascular Rhythm: other (tachycardia) Heart Sounds: Present: S1 & S2 Extremities: No edema - Gastrointestinal General gastrointestinal: Present: soft, tender (LUQ), non-distended, normal bowel sounds - Integumentary Integumentary: Present: warm, dry - Neurologic Neurological: alert and oriented x3 - Psychiatric Psychiatric: appropriate mood/affect, cooperative - Labs CBC & Chem 7: 09/28/16 12:05 09/28/16 Unknown Lab Results: Laboratory Results - last 24 hr 09/28/16 09/28/16 09/28/16 07:50 12:05 12:05 Hgb 13.5 Hct 42.8 Sodium 137 141 Potassium 4.9 4.3 Chloride 91.5 L 95.7 L Carbon Dioxide 24 29 Anion Gap 26 21 BUN 36 H 33 H Creatinine 1.2 1.1 Estimated GFR 57 > 60 BUN/Creatinine Ratio 30.00 30.00 Glucose 594 H* 339 H Calcium 9.3 9.4 Phosphorus Magnesium Urine Color Urine Turbidity Urine pH Ur Specific [place] Urine Protein Urine Glucose (UA) Urine Ketones Urine Blood Urine Nitrite Urine Bilirubin Urine Urobilinogen Ur Leukocyte Esterase Urine WBC (Auto) Urine RBC (Auto) U Epithel Cells (Auto) Urine Mucus 09/28/16 09/28/16 09/28/16 Unknown Unknown Unknown Hgb Hct Sodium 132 L Potassium 5.8 H D Chloride 84.5 L Carbon Dioxide 24 Anion Gap 29 BUN 39 H Creatinine 1.1 Estimated GFR > 60 BUN/Creatinine Ratio 35.45 Glucose 664 H* Calcium 9.4 Phosphorus 6.50 H Magnesium 2.70 H Urine Color Straw Urine Turbidity Clear Urine pH 5.0 Ur Specific [place] 1.021 Urine Protein <15 mg/dl Urine Glucose (UA) >=500 Urine Ketones 20 Urine Blood Neg Urine Nitrite Neg Urine Bilirubin Neg Urine Urobilinogen < 2.0 Ur Leukocyte Esterase Neg Urine WBC (Auto) < 1.0 Urine RBC (Auto) 2.0 U Epithel Cells (Auto) 1.0 Urine Mucus Few Assessment and Plan 1.GI bleed 2.coffee-ground emesis 3.DKA -etiology most likely 2/2 possible chaitanya-de la garza tear -HGB 13.5-trending down -continue to monitor H&H and transfuse as needed -hold blood thinning medications -will start on PPI -continue supportive care -clear liquids today as tolerated and then NPO after MN -PT/INR and CBC in am -will schedule for EGD tomorrow -will follow
[2016-09-28 16:58] LABS: Anion Gap 19 mmol/L; BUN/Creatinine Ratio 29.09; Blood Urea Nitrogen 32 mg/dL (7-17); Calcium 9.2 mg/dL (8.4-10.2); Carbon Dioxide 30 mmol/L (22-30); Chloride 98.1 mmol/L (98-107); Glucose 257 mg/dL (65-100); Potassium 4.7 mmol/L (3.6-5.0); Sodium 142 mmol/L (137-145)
--- NOTE | 2016-09-28 17:29 | Event Note ---
Date: 09/28/16 PATIENT SEEN AND EXAMINED, REPORTS NAUSEA WITH VOMITING. INITIALLY NON BLOODY, NOW WITH COFFEE GROUND. GI CONSULTED, PPI, FOLLOW H/H. keep npo
[2016-09-28] MEDS: MORPHINE IV PRN ×2 (19:25→22:30)
[2016-09-28 23:35] LABS: BUN/Creatinine Ratio 35.55; Blood Urea Nitrogen 32 mg/dL (7-17); Calcium 9.3 mg/dL (8.4-10.2); Carbon Dioxide 37 mmol/L (22-30); Chloride 95.3 mmol/L (98-107); Glucose 198 mg/dL (65-100); Potassium 3.9 mmol/L (3.6-5.0); Sodium 139 mmol/L (137-145)
[2016-09-29 00:03] LABS: Anion Gap 11 mmol/L
[2016-09-29] MEDS ORDERED: D50W (25GM) IV PRN (04:06)
[2016-09-29] MEDS: ZOFRAN IV PRN ×3 (04:50→20:34)
[2016-09-29] MEDS: MORPHINE IV PRN ×4 (04:50→21:45)
[2016-09-29] MEDS ORDERED: MORPHINE ONE (08:22)
[2016-09-29] MEDS ORDERED: COZAAR ONE (08:23)
[2016-09-29] MEDS ORDERED: HCTZ ONE (08:23)
[2016-09-29] MEDS: COZAAR PO SCH ×2 (08:26→10:23)
[2016-09-29] MEDS: HEPARIN SUB-Q SCH ×3 (08:27→21:45)
[2016-09-29] MEDS: HCTZ PO SCH ×2 (08:27→10:22)
[2016-09-29 08:42] LABS: Hematocrit 41.1 % (30.3-42.9); Mean Corpuscular HGB Conc 32 % (30-34); Mean Corpuscular Volume 82 fl (79-97); Platelet Count 215 K/mm3 (140-440); Red Blood Count 5.01 M/mm3 (3.65-5.03); Red Cell Distribution Width 12.9 % (13.2-15.2); White Blood Count 10.9 K/mm3 (4.5-11.0)
[2016-09-29 08:43] LABS: Mean Corpuscular Hemoglobin 26 pg (28-32)
[2016-09-29 08:56] LABS: INR 1.07 (0.87-1.13)
[2016-09-29 09:09] LABS: Blood Urea Nitrogen 27 mg/dL (7-17); Carbon Dioxide 25 mmol/L (22-30); Glucose 350 mg/dL (65-100)
[2016-09-29 09:10] LABS: Chloride 96.7 mmol/L (98-107); Potassium 4.7 mmol/L (3.6-5.0); Sodium 137 mmol/L (137-145)
[2016-09-29 09:11] LABS: Anion Gap 20 mmol/L
[2016-09-29] MEDS ORDERED: WATER FOR IRRIG STERILE IR ONE (10:15)
--- NOTE | 2016-09-29 10:18 | Anesthesia Day of Surgery ---
Anesthesia Day of Surgery - Day of Surgery Patient Examined: Yes Patient H&P Reviewed: Yes Patient is NPO: Yes
--- NOTE | 2016-09-29 10:18 | Anesthesia Consultation ---
Anesthesia Consult and Med Hx Date of service: 09/29/16 - Airway Anesthetic Teeth Evaluation: Poor, Chipped ROM Head & Neck: Adequate Mental/Hyoid Distance: Inadequate Mallampati Class: Class II Intubation Access Assessment: Probably Good - Pulmonary Exam CTA: Yes - Cardiac Exam Cardiac Exam: RRR (some missing) - Pre-Operative Health Status ASA Pre-Surgery Classification: ASA3 Proposed Anesthetic Plan: MAC - Pulmonary Hx Smoking: No COPD: No Hx Pneumonia: No Hx Sleep Apnea: Yes (does not use CPAP) - Cardiovascular System Hx Hypertension: Yes - Central Nervous System Hx Neuromuscular Disorder: No Hx Psychiatric Problems: No - Gastrointestinal Hx Gastroesophageal Reflux Disease: No - Endocrine Hx Renal Disease: No Hx End Stage Renal Disease: No Hx Insulin Dependent Diabetes: Yes (uncontrolled DM) - Hematic Hx Anemia: No Hx Sickle Cell Disease: No - Other Systems Hx Alcohol Use: No Hx Substance Use: No Hx Cancer: No Hx Obesity: Yes - Additional Comments Anesthesia Medical History Comments: Patient present to ER 09/28/16 with uncontrolled DM without ketoacidosis. Severe nausea and vomiting with blood noted.
[2016-09-29] MEDS ORDERED: NOVOLOG SUB-Q ONE (10:20)
--- NOTE | 2016-09-29 10:20 | Progress Note ---
Assessment and Plan Assessment and plan: Acute GI bleed with coffee ground emesis. For EGD today. H/H has been stable, so no need for PRBC transfusion. Hyperosmolar hyperglycemic state. She was on Insulin drip in ICU. To start Novolin 70/30 when she starts a diet Hypertension. Resume home meds DVT prophylaxis with scds skyler because of GI bleeding History Interval history: Uncontrolled blood glucose, Coffee ground emesis Hospitalist Physical - Physical exam Narrative exam: Gen Appearance: Not in acute distress,morbid obese HEENT: normocephalic, atraumatic Neck: supple, no JVD Lungs: clear to auscultation bilaterally, no crackles or wheezes Heart: S1 and S2 regular, no murmurs or gallop Abdomen: Soft, non tender, non distended normal bowel sounds, Extremity: No edema, no clubbing or cyanosis Neuro : Awake,alert,oriented x3, moves all extremities Psych : normal mood - Constitutional Vitals: Temp Pulse Resp BP Pulse Ox 97.7 F 82 20 164/91 95 09/29/16 09:48 09/29/16 09:48 09/29/16 09:48 09/29/16 09:48 09/29/16 09:48 Results - Labs CBC & Chem 7: 09/29/16 08:13 09/29/16 08:13 Labs: Laboratory Last Values WBC 10.9 K/mm3 (4.5-11.0) 09/29/16 08:13 RBC 5.01 M/mm3 (3.65-5.03) 09/29/16 08:13 Hgb 13.0 gm/dl (10.1-14.3) 09/29/16 08:13 Hct 41.1 % (30.3-42.9) 09/29/16 08:13 MCV 82 fl (79-97) 09/29/16 08:13 MCH 26 pg (28-32) L 09/29/16 08:13 MCHC 32 % (30-34) 09/29/16 08:13 RDW 12.9 % (13.2-15.2) L 09/29/16 08:13 Plt Count 215 K/mm3 (140-440) 09/29/16 08:13 Lymph % (Auto) 15.6 % (13.4-35.0) 09/28/16 03:51 [place] % (Auto) 4.0 % (0.0-7.3) 09/28/16 03:51 Eos % (Auto) 0.1 % (0.0-4.3) 09/28/16 03:51 Baso % (Auto) 0.3 % (0.0-1.8) 09/28/16 03:51 Lymph # 1.7 K/mm3 (1.2-5.4) 09/28/16 03:51 [place] # 0.4 K/mm3 (0.0-0.8) 09/28/16 03:51 Eos # 0.0 K/mm3 (0.0-0.4) 09/28/16 03:51 Baso # 0.0 K/mm3 (0.0-0.1) 09/28/16 03:51 Seg Neutrophils % 80.0 % (40.0-70.0) H 09/28/16 03:51 Seg Neutrophils # 8.7 K/mm3 (1.8-7.7) H 09/28/16 03:51 PT 13.8 Sec. (12.2-14.9) 09/29/16 08:13 INR 1.07 (0.87-1.13) 09/29/16 08:13 VBG pH 7.347 (7.320-7.420) 09/28/16 03:16 Sodium 137 mmol/L (137-145) 09/29/16 08:13 Potassium 4.7 mmol/L (3.6-5.0) D 09/29/16 08:13 Chloride 96.7 mmol/L (98-107) L 09/29/16 08:13 Carbon Dioxide 25 mmol/L (22-30) D 09/29/16 08:13 Anion Gap 20 mmol/L 09/29/16 08:13 BUN 27 mg/dL (7-17) H 09/29/16 08:13 Creatinine 0.9 mg/dL (0.7-1.2) 09/29/16 08:13 Estimated GFR > 60 ml/min 09/29/16 08:13 BUN/Creatinine Ratio 30.00 % 09/29/16 08:13 Glucose 350 mg/dL (65-100) H 09/29/16 08:13 POC Glucose 265 (70-105) H 09/29/16 05:07 Lactic Acid 2.80 mmol/L (0.7-2.0) H* 09/28/16 03:16 Calcium 9.0 mg/dL (8.4-10.2) 09/29/16 08:13 Phosphorus 6.50 mg/dL (2.5-4.5) H 09/28/16 Unknown Magnesium 2.70 mg/dL (1.7-2.3) H 09/28/16 Unknown Total Bilirubin 0.40 mg/dL (0.1-1.2) 09/28/16 03:16 AST 9 units/L (5-40) 09/28/16 03:16 ALT 10 units/L (7-56) 09/28/16 03:16 Alkaline Phosphatase 99 units/L (35-129) 09/28/16 03:16 Troponin T < 0.010 ng/mL (0.00-0.029) 09/28/16 03:16 Total Protein 9.1 g/dL (6.3-8.2) H 09/28/16 03:16 Albumin 4.4 g/dL (3.9-5) 09/28/16 03:16 Albumin/Globulin Ratio 0.9 % 09/28/16 03:16 Lipase 13 units/L (13-60) 09/28/16 03:16 Urine Color Straw (Yellow) 09/28/16 Unknown Urine Turbidity Clear (Clear) 09/28/16 Unknown Urine pH 5.0 (5.0-7.0) 09/28/16 Unknown Ur Specific [place] 1.021 (1.003-1.030) 09/28/16 Unknown Urine Protein <15 mg/dl mg/dL (Negative) 09/28/16 Unknown Urine Glucose (UA) >=500 mg/dL (Negative) 09/28/16 Unknown Urine Ketones 20 mg/dL (Negative) 09/28/16 Unknown Urine Blood Neg (Negative) 09/28/16 Unknown Urine Nitrite Neg (Negative) 09/28/16 Unknown Urine Bilirubin Neg (Negative) 09/28/16 Unknown Urine Urobilinogen < 2.0 mg/dL (<2.0) 09/28/16 Unknown Ur Leukocyte Esterase Neg (Negative) 09/28/16 Unknown Urine WBC (Auto) < 1.0 /HPF (0.0-6.0) 09/28/16 Unknown Urine RBC (Auto) 2.0 /HPF (0.0-6.0) 09/28/16 Unknown U Epithel Cells (Auto) 1.0 /HPF (0-13.0) 09/28/16 Unknown Urine Mucus Few /HPF 09/28/16 Unknown
[2016-09-29] MEDS: APRESOLINE IV PRN ×2 (10:23→20:31)
[2016-09-29] MEDS ORDERED: DIPRIVAN 10 MG/ML IV ONE ×2 (10:27)
[2016-09-29] MEDS ORDERED: XYLOCAINE MPF 2% ONE (10:30)
[2016-09-29] MEDS ORDERED: ROBINUL ONE (10:30)
[2016-09-29] MEDS ORDERED: NACL 0.9% 1000 ML 1,000 ML ONE (10:33)
[2016-09-29] MEDS ORDERED: SUBLIMAZE ONE (11:07)
--- NOTE | 2016-09-29 11:24 | Consultation ---
History of Present Illness Consult date: 09/29/16 Requesting physician: ABDIRASHID DICKSON Reason for consult: other (DKA; GI Bleed) History of present illness: PULMONARY/CCM CONSULT NOTE (Full note dictated # [phone]) Please see dictated notes for full details Past History Past Medical History: diabetes, hypertension, other (GLAUCOMA,CATARACT) Past Surgical History: appendectomy Social history: lives with family. denies: smoking, alcohol abuse Family history: no significant family history Medications and Allergies Allergies Allergy/AdvReac Type Severity Reaction Status Date / Time seafood Allergy Rash Uncoded 06/04/14 13:22 Home Medications Medication Instructions Recorded Confirmed Last Taken Type metFORMIN [Glucophage] 500 mg PO BID 12/13/12 09/28/16 09/27/16 History Insulin Lispro [Humalog] 50 unit SQ BID 09/28/16 09/28/16 09/27/16 History Losartan/Hydrochlorothiazide 1 each PO QDAY 09/28/16 09/28/16 09/27/16 History [Losartan-Hctz 50-12.5 mg Tab] Pantoprazole [Protonix] 40 mg PO QDAY #30 tablet 09/30/16 Unknown Rx Sucralfate [Carafate] 1 gm PO Q6HR 30 Days 09/30/16 Unknown Rx Active Meds: Active Medications Acetaminophen (Tylenol) 650 mg PO Q4H PRN PRN Reason: For Pain/Fever/Headache Last Admin: 09/28/16 08:35 Dose: 650 mg Dextrose (D50w (25gm)) 0 ml IV PRN PRN PRN Reason: Hypoglycemia Dextrose (D50w (25gm)) 50 ml IV PRN PRN PRN Reason: Hypoglycemia Heparin Sodium (Porcine) (Heparin) 5,000 unit SUB-Q Q12HR ANAT Last Admin: 09/29/16 10:25 Dose: 5,000 unit Hydralazine HCl (Apresoline) 10 mg IV Q4H PRN PRN Reason: Hypertension Last Admin: 09/29/16 10:23 Dose: 10 mg Hydrochlorothiazide (Hctz) 12.5 mg PO QDAY ANAT Last Admin: 09/29/16 10:22 Dose: 12.5 mg Potassium Chloride/Dextrose/Sod Cl (D5w/0.45% Nacl/Kcl 20 Meq) 20 meq in 1,000 mls @ 125 mls/hr IV DIRECT ANAT Last Admin: 09/28/16 19:30 Dose: 125 mls/hr Sodium Chloride (Nacl 0.9% 1000 Ml) 1,000 mls @ 150 mls/hr IV DIRECT ANAT Last Admin: 09/28/16 17:28 Dose: 150 mls/hr Insulin Human Regular (Novolin R) 0 units SUB-Q ACHS ANAT PRN Reason: Protocol Last Admin: 09/29/16 08:27 Dose: 8 units Insulin Human Regular (Novolin R) 10 units IV ONCE ONE Stop: 09/29/16 10:14 Losartan Potassium (Cozaar) 50 mg PO QDAY ANAT Last Admin: 09/29/16 10:23 Dose: 50 mg Morphine Sulfate (Morphine) 2 mg IV Q4H PRN PRN Reason: Pain, Moderate (4-6) Last Admin: 09/29/16 08:30 Dose: 2 mg Ondansetron HCl (Zofran) 4 mg IV Q8H PRN PRN Reason: Nausea And Vomiting Last Admin: 09/29/16 04:50 Dose: 4 mg Pantoprazole Sodium (Protonix) 40 mg IV QDAY [facility] Physical Examination Vital signs: Vital Signs Temp Pulse Resp BP Pulse Ox 97.8 F 102 H 20 138/92 100 09/28/16 02:50 09/28/16 02:50 09/28/16 02:50 09/28/16 02:50 09/28/16 02:50 Results - Laboratory Findings CBC and BMP: 09/30/16 10:46 09/29/16 08:13 PT/INR, D-dimer PT 13.8 Sec. (12.2-14.9) 09/29/16 08:13 INR 1.07 (0.87-1.13) 09/29/16 08:13 Abnormal lab findings: Abnormal Labs 09/28/16 09/28/16 09/28/16 07:50 11:12 12:05 MCH RDW Sodium Potassium Chloride 91.5 L 95.7 L Carbon Dioxide BUN 36 H 33 H Glucose 594 H* 339 H POC Glucose 372 H Phosphorus Magnesium 09/28/16 09/28/16 09/28/16 14:43 16:09 16:28 MCH RDW Sodium Potassium Chloride Carbon Dioxide BUN 32 H Glucose 257 H POC Glucose 291 H 258 H Phosphorus Magnesium 09/28/16 09/28/16 09/28/16 17:03 18:21 19:10 MCH RDW Sodium Potassium Chloride Carbon Dioxide BUN Glucose POC Glucose 256 H 252 H 223 H Phosphorus Magnesium 09/28/16 09/28/16 09/28/16 20:44 21:47 22:20 MCH RDW Sodium Potassium Chloride 95.3 L Carbon Dioxide 37 H D BUN 32 H Glucose 198 H POC Glucose 224 H 226 H Phosphorus Magnesium 09/28/16 09/28/16 09/28/16 22:52 23:47 Unknown MCH RDW Sodium Potassium Chloride Carbon Dioxide BUN Glucose POC Glucose 219 H 219 H Phosphorus 6.50 H Magnesium 2.70 H 09/28/16 09/29/16 09/29/16 Unknown 00:53 01:51 MCH RDW Sodium 132 L Potassium 5.8 H D Chloride 84.5 L Carbon Dioxide BUN 39 H Glucose 664 H* POC Glucose 226 H 237 H Phosphorus Magnesium 09/29/16 09/29/16 09/29/16 03:05 05:07 08:13 MCH RDW Sodium Potassium Chloride 96.7 L Carbon Dioxide BUN 27 H Glucose 350 H POC Glucose 236 H 265 H Phosphorus Magnesium 09/29/16 09/29/16 09/29/16 08:13 09:44 10:41 MCH 26 L RDW 12.9 L Sodium Potassium Chloride Carbon Dioxide BUN Glucose POC Glucose 362 H 360 H Phosphorus Magnesium 09/29/16 11:03 MCH RDW Sodium Potassium Chloride Carbon Dioxide BUN Glucose POC Glucose 338 H Phosphorus Magnesium
--- NOTE | 2016-09-29 11:31 | Post Operative Note ---
Pre-op diagnosis: coffee emesis Post-op diagnosis: same Findings: EGD: moderate esophagitis mid/distal esophagus (bx's) - inflammation g-e junction (bx's) - small hiatal hernia - mild gastritis - negative other Procedure: EGD Anesthesia: MAC Surgeon: HERO VILA Estimated blood loss: none Pathology: list Specimen disposition: to lab Condition: stable Disposition: floor
--- NOTE | 2016-09-29 11:39 | Operative Report ---
Operative Report Operative Report: Procedure: EGD Indication: hematemesis, nausea Referring Physican: Bandar Reyna Complications: none Med: propafol per [employer] Procedure: pt brought to procedure room. Pt had procedure discussed at length. All risk and complications discussed. After adequate sedation scope placed to mouth and brought to duodenum. Retroflexion performed Findings: Moderate esophagitis misd to distal esophagus, biopsied. Irregular z- line 38 cm from gums, biopsied. Otherwise normal esophagus. Mild antral gastritis noted but otherwise normal stomach. Normal duodenum. Impression: esophagits, biopsied - small hiatal hernia - irregular z-line, biopsied - otherwise benign EGD Plan: f/u bx's - PPI qd - Carafte susp qid - start po and advance as tolerated - if stable in am ok to d/c from GI standpoint - Dr. Lane on this wknd, call if needed
--- NOTE | 2016-09-29 11:41 | Post Anesthesia Evaluation ---
- Post Anesthesia Evaluation Patient Participated: Yes Airway Patent: Yes Stable Respiratory Function: Yes Temp > 96.8F: Yes Pain Manageable: Yes Adequeate Hydration: Yes Anesthesia Complications: No Block Receding Appropriately: Not Applicable
[2016-09-29] MEDS: PROTONIX IV SCH (12:49)
[2016-09-29] MEDS: CARAFATE PO SCH ×2 (13:00→17:52)
[2016-09-29] MEDS ORDERED: PNEUMOVAX 23 IM ONE (17:00)
[2016-09-29] MEDS ORDERED: COZAAR PO SCH (23:30)
[2016-09-29] MEDS ORDERED: BENADRYL IV PRN (23:52)
[2016-09-30] MEDS: CARAFATE PO SCH ×3 (01:00→16:47)
[2016-09-30] MEDS: PROTONIX IV SCH (09:32)
[2016-09-30] MEDS: COZAAR PO SCH (09:32)
[2016-09-30] MEDS: HCTZ PO SCH (09:33)
[2016-09-30] MEDS: HEPARIN SUB-Q SCH (09:33)
[2016-09-30 09:37] VITALS: BP 127/69
[2016-09-30] MEDS ORDERED: HCTZ PO SCH (10:00)
--- NOTE | 2016-09-30 10:52 | Discharge Summary ---
Providers - Providers Date of Admission: 09/28/16 05:11 Date of discharge: 09/30/16 Attending physician: FREDDIE BONNER 09/28/16 11:53 Consult to Physician [CONS] Stat Consulting Provider: HERO DAVIS Reason For Exam: GI bleed Place consult to:: office staff Notified:: yes Phone number called:: [phone] Was contact made?: Yes If yes, spoke with:: Debora Time called:: 11:54 Primary care physician: GRETEL AGUIRRE Hospitalization Condition: Good Disposition: DC-01 TO HOME OR SELFCARE - Discharge Diagnoses (1) Acute upper GI bleed Status: Acute (2) Esophagitis Status: Acute (3) Gastritis Status: Acute Qualifiers: Gastritis type: G Chronicity: C Gastritis bleeding: G (4) Renal mass, right Status: Acute Exam - Constitutional Vitals: Temp Pulse Resp BP Pulse Ox 98.6 F 90 18 127/69 97 09/30/16 08:00 09/30/16 09:32 09/30/16 08:00 09/30/16 09:32 09/30/16 08:00 Plan Activity: no restrictions Diet: low fat, low cholesterol, low salt, diabetic Additional Instructions: 1.Follow up with Dr. Aguirre in 1 week. 2.Follow up with Dr. Jesus Davis in 1-2 weeks. 3.Take Humalog 40 Units subcut bid as recommended by your PCP. 4.Follow up with Dr. Shrestha, urology in 2-3 days for right complex renal mass Follow up with: GRETEL AGUIRRE MD [Primary Care Provider] - 3-5 Days Prescriptions: Pantoprazole [Protonix] 40 mg PO QDAY #30 tablet Sucralfate [Carafate] 1 gm PO Q6HR 30 Days
[2016-09-30] MEDS: ZOFRAN IV PRN (11:24)
[2016-09-30 12:00] LABS: Hematocrit 42.7 % (30.3-42.9); Hemoglobin 13.7 gm/dl (10.1-14.3)
--- NOTE | 2016-09-30 16:04 | Progress Note ---
Assessment and Plan - Patient Problems (1) Acute upper GI bleed Status: Acute Plan to address problem: - now s/p EGD - no active bleeding - continue acid suppresant therapy - per GI team otherwise (2) Esophagitis Status: Acute Plan to address problem: - as above (3) Uncontrolled type 2 DM with hyperosmolar nonketotic hyperglycemia Status: Acute Plan to address problem: - off IV insulin - 70/30 10units SQ bid scheduled - continue SSI - dietary and medication compliance counselled Subjective Date of service: 09/30/16 Principal diagnosis: Acute GI Bleeding; Uncontrolled Diabetes Interval history: Seen and examined at bedside; 24 hour events reviewed; nursing and respiratory care staff consulted; no adverse overnight events reported to me; doing better; s/p EGD; no gross GI bleeding; denies acute chest pains or increased SOB Objective Vital Signs - 12hr 09/30/16 09/30/16 09/30/16 05:29 08:00 09:32 Temperature 97.6 F 98.6 F Pulse Rate 90 Pulse Rate [ 99 H 90 Right Radial] Respiratory 20 18 Rate Blood Pressure 127/69 Blood Pressure 140/82 127/69 [Left Arm] O2 Sat by Pulse 98 97 Oximetry Constitutional: no acute distress Eyes: non-icteric ENT: oropharynx moist Neck: supple, no lymphadenopathy Effort: normal Ascultation: Bilateral: clear, diminished breath sounds Cardiovascular: regular rate and rhythm Gastrointestinal: normoactive bowel sounds, soft, non-tender, non-distended Integumentary: normal Extremities: no cyanosis, no edema, pulses normal, no ischemia or petechiae Neurologic: normal mental status, non-focal exam, pupils equal and round, motor strength normal and Psychiatric: mood appropriate, affect normal CBC and BMP: 09/30/16 10:46 09/29/16 08:13 ABG, PT/INR, D-dimer: PT/INR, D-dimer PT 13.8 Sec. (12.2-14.9) 09/29/16 08:13 INR 1.07 (0.87-1.13) 09/29/16 08:13 Abnormal lab findings: Abnormal Labs 09/28/16 09/28/16 09/28/16 07:50 11:12 12:05 MCH RDW Sodium Potassium Chloride 91.5 L 95.7 L Carbon Dioxide BUN 36 H 33 H Glucose 594 H* 339 H POC Glucose 372 H Hemoglobin A1c Phosphorus Magnesium 09/28/16 09/28/16 09/28/16 14:43 16:09 16:28 MCH RDW Sodium Potassium Chloride Carbon Dioxide BUN 32 H Glucose 257 H POC Glucose 291 H 258 H Hemoglobin A1c Phosphorus Magnesium 09/28/16 09/28/16 09/28/16 17:03 18:21 19:10 MCH RDW Sodium Potassium Chloride Carbon Dioxide BUN Glucose POC Glucose 256 H 252 H 223 H Hemoglobin A1c Phosphorus Magnesium 09/28/16 09/28/16 09/28/16 20:44 21:47 22:20 MCH RDW Sodium Potassium Chloride 95.3 L Carbon Dioxide 37 H D BUN 32 H Glucose 198 H POC Glucose 224 H 226 H Hemoglobin A1c Phosphorus Magnesium 09/28/16 09/28/16 09/28/16 22:52 23:47 Unknown MCH RDW Sodium Potassium Chloride Carbon Dioxide BUN Glucose POC Glucose 219 H 219 H Hemoglobin A1c Phosphorus 6.50 H Magnesium 2.70 H 09/28/16 09/29/16 09/29/16 Unknown 00:53 01:51 MCH RDW Sodium 132 L Potassium 5.8 H D Chloride 84.5 L Carbon Dioxide BUN 39 H Glucose 664 H* POC Glucose 226 H 237 H Hemoglobin A1c Phosphorus Magnesium 09/29/16 09/29/16 09/29/16 03:05 05:07 08:13 MCH RDW Sodium Potassium Chloride 96.7 L Carbon Dioxide BUN 27 H Glucose 350 H POC Glucose 236 H 265 H Hemoglobin A1c Phosphorus Magnesium 09/29/16 09/29/16 09/29/16 08:13 08:16 09:44 MCH 26 L RDW 12.9 L Sodium Potassium Chloride Carbon Dioxide BUN Glucose POC Glucose 367 H 362 H Hemoglobin A1c Phosphorus Magnesium 09/29/16 09/29/16 09/29/16 10:41 11:03 11:35 MCH RDW Sodium Potassium Chloride Carbon Dioxide BUN Glucose POC Glucose 360 H 338 H 314 H Hemoglobin A1c Phosphorus Magnesium 09/29/16 09/29/16 09/30/16 17:51 21:09 01:47 MCH RDW Sodium Potassium Chloride Carbon Dioxide BUN Glucose POC Glucose 216 H 261 H 287 H Hemoglobin A1c Phosphorus Magnesium 09/30/16 09/30/16 10:46 12:24 MCH RDW Sodium Potassium Chloride Carbon Dioxide BUN Glucose POC Glucose 244 H Hemoglobin A1c 14.6 H Phosphorus Magnesium
--- NOTE | 2016-09-30 16:18 | Progress Note ---
Assessment and Plan - Patient Problems (1) Acute upper GI bleed Current Visit: Yes Status: Acute (2) Esophagitis Current Visit: Yes Status: Acute (3) Gastritis Current Visit: Yes Status: Acute Qualifiers: Gastritis type: G Chronicity: C Gastritis bleeding: G History Interval history: Uncontrolled blood glucose, Coffee ground emesis Hospitalist Physical - Constitutional Vitals: Temp Pulse Resp BP Pulse Ox 98.6 F 90 18 127/69 97 09/30/16 08:00 09/30/16 09:32 09/30/16 08:00 09/30/16 09:32 09/30/16 08:00 General appearance: Present: no acute distress. Absent: disheveled Results - Labs CBC & Chem 7: 09/30/16 10:46 09/29/16 08:13 Labs: Laboratory Last Values WBC 10.9 K/mm3 (4.5-11.0) 09/29/16 08:13 RBC 5.01 M/mm3 (3.65-5.03) 09/29/16 08:13 Hgb 13.7 gm/dl (10.1-14.3) 09/30/16 10:46 Hct 42.7 % (30.3-42.9) 09/30/16 10:46 MCV 82 fl (79-97) 09/29/16 08:13 MCH 26 pg (28-32) L 09/29/16 08:13 MCHC 32 % (30-34) 09/29/16 08:13 RDW 12.9 % (13.2-15.2) L 09/29/16 08:13 Plt Count 215 K/mm3 (140-440) 09/29/16 08:13 Lymph % (Auto) 15.6 % (13.4-35.0) 09/28/16 03:51 Howard % (Auto) 4.0 % (0.0-7.3) 09/28/16 03:51 Eos % (Auto) 0.1 % (0.0-4.3) 09/28/16 03:51 Baso % (Auto) 0.3 % (0.0-1.8) 09/28/16 03:51 Lymph # 1.7 K/mm3 (1.2-5.4) 09/28/16 03:51 Howard # 0.4 K/mm3 (0.0-0.8) 09/28/16 03:51 Eos # 0.0 K/mm3 (0.0-0.4) 09/28/16 03:51 Baso # 0.0 K/mm3 (0.0-0.1) 09/28/16 03:51 Seg Neutrophils % 80.0 % (40.0-70.0) H 09/28/16 03:51 Seg Neutrophils # 8.7 K/mm3 (1.8-7.7) H 09/28/16 03:51 PT 13.8 Sec. (12.2-14.9) 09/29/16 08:13 INR 1.07 (0.87-1.13) 09/29/16 08:13 VBG pH 7.347 (7.320-7.420) 09/28/16 03:16 Sodium 137 mmol/L (137-145) 09/29/16 08:13 Potassium 4.7 mmol/L (3.6-5.0) D 09/29/16 08:13 Chloride 96.7 mmol/L (98-107) L 09/29/16 08:13 Carbon Dioxide 25 mmol/L (22-30) D 09/29/16 08:13 Anion Gap 20 mmol/L 09/29/16 08:13 BUN 27 mg/dL (7-17) H 09/29/16 08:13 Creatinine 0.9 mg/dL (0.7-1.2) 09/29/16 08:13 Estimated GFR > 60 ml/min 09/29/16 08:13 BUN/Creatinine Ratio 30.00 % 09/29/16 08:13 Glucose 350 mg/dL (65-100) H 09/29/16 08:13 POC Glucose 244 (70-105) H 09/30/16 12:24 Hemoglobin A1c 14.6 % (4-6) H 09/30/16 10:46 Lactic Acid 2.80 mmol/L (0.7-2.0) H* 09/28/16 03:16 Calcium 9.0 mg/dL (8.4-10.2) 09/29/16 08:13 Phosphorus 6.50 mg/dL (2.5-4.5) H 09/28/16 Unknown Magnesium 2.70 mg/dL (1.7-2.3) H 09/28/16 Unknown Total Bilirubin 0.40 mg/dL (0.1-1.2) 09/28/16 03:16 AST 9 units/L (5-40) 09/28/16 03:16 ALT 10 units/L (7-56) 09/28/16 03:16 Alkaline Phosphatase 99 units/L (35-129) 09/28/16 03:16 Troponin T < 0.010 ng/mL (0.00-0.029) 09/28/16 03:16 Total Protein 9.1 g/dL (6.3-8.2) H 09/28/16 03:16 Albumin 4.4 g/dL (3.9-5) 09/28/16 03:16 Albumin/Globulin Ratio 0.9 % 09/28/16 03:16 Lipase 13 units/L (13-60) 09/28/16 03:16 Urine Color Straw (Yellow) 09/28/16 Unknown Urine Turbidity Clear (Clear) 09/28/16 Unknown Urine pH 5.0 (5.0-7.0) 09/28/16 Unknown Ur Specific [place] 1.021 (1.003-1.030) 09/28/16 Unknown Urine Protein <15 mg/dl mg/dL (Negative) 09/28/16 Unknown Urine Glucose (UA) >=500 mg/dL (Negative) 09/28/16 Unknown Urine Ketones 20 mg/dL (Negative) 09/28/16 Unknown Urine Blood Neg (Negative) 09/28/16 Unknown Urine Nitrite Neg (Negative) 09/28/16 Unknown Urine Bilirubin Neg (Negative) 09/28/16 Unknown Urine Urobilinogen < 2.0 mg/dL (<2.0) 09/28/16 Unknown Ur Leukocyte Esterase Neg (Negative) 09/28/16 Unknown Urine WBC (Auto) < 1.0 /HPF (0.0-6.0) 09/28/16 Unknown Urine RBC (Auto) 2.0 /HPF (0.0-6.0) 09/28/16 Unknown U Epithel Cells (Auto) 1.0 /HPF (0-13.0) 09/28/16 Unknown Urine Mucus Few /HPF 09/28/16 Unknown
== END 2016-09-30 15:55 | disposition home or self-care (01) | DRG 377 ==
LOC: ED 02:40 → CC1 05:11 → 4A 09-29 05:08
PROVIDERS: ADMIT Internal Medicine; ATTEND Internal Medicine
PROC: 0DB58ZX Excision of Esophagus, Via Natural or Artificial Opening Endoscopic, Diagnostic (ICD-10-PCS; principal; 2016-09-29)
PROC: 0DB78ZX Excision of Stomach, Pylorus, Via Natural or Artificial Opening Endoscopic, Diagnostic (ICD-10-PCS; principal; 2016-09-29)
PROC: 0DB48ZX Excision of Esophagogastric Junction, Via Natural or Artificial Opening Endoscopic, Diagnostic (ICD-10-PCS; principal; 2016-09-29)
PROC: 3E0234Z Introduction of Serum, Toxoid and Vaccine into Muscle, Percutaneous Approach (ICD-10-PCS; 2016-09-29)
DX: K29.01 Acute gastritis with bleeding (principal); E11.00 Type 2 diabetes mellitus with hyperosmolarity without nonketotic hyperglycemic-hyperosmolar coma (NKHHC); K20.9 Esophagitis, unspecified; N28.89 Other specified disorders of kidney and ureter; I10 Essential (primary) hypertension; G47.30 Sleep apnea, unspecified; E66.9 Obesity, unspecified; K44.9 Diaphragmatic hernia without obstruction or gangrene; Z91.013 Allergy to seafood; Z68.41 Body mass index [BMI] 40.0-44.9, adult; Z23 Encounter for immunization
CPT/HCPCS: 36415; 71010; 74150; 80048; 80053; 81001; 82140; 82805; 82962; 83036; 83690; 83735; 84100; 84484; 85014; 85018; 85025; 85027; 85610; 87040; 88305; 88341; 88342; 90732; 93005; 93010; 96365; 96366; 96372; 96375; 96376; C9113; J0360; J1200; J1644; J1815; J2270; J2405; J2704; J3010; J7030

== ENCOUNTER 2016-12-24 11:01 | Emergency (ER) | payer MEDICAID ==
[2016-12-24 11:28] VITALS: BP 140/78
--- NOTE | 2016-12-24 15:07 | Emergency Department Report ---
ED ENT HPI - General Chief complaint: Earache Stated complaint: COTTON STUCK IN EAR Source: patient Mode of arrival: Ambulatory Limitations: No Limitations - History of Present Illness Initial comments: 51 y/o F with a PMhx of HTN and DM presents with a cotton swab stuck in her ear. Pt states that she was cleaning her ear out yesterday with a cotton swab and the cotton ended up staying in the ear. She denies any hearing changes, itching, or muffled hearing at this time. She denies any ringing in the ears. She admits to mild discomfort at this time. She denies any fever, chills, chest pain, or SOB at this time. Pt has not tried anything for the symptoms at this time. NKDA. MANN complaint: ear pain, foreign body -: Sudden Location: R ear Severity: mild Severity scale (0 -10): 5 Quality: aching Consistency: constant Improves with: none Worsens with: none Associated Symptoms: denies: fever, cough, gum swelling, toothache, pain with swallowing, sore throat, tinnitus, hearing loss, discharge from ear, rhinorrhea - Related Data Home Medications Medication Instructions Recorded Confirmed Last Taken metFORMIN [Glucophage] 500 mg PO BID 12/13/12 09/28/16 09/27/16 Insulin Lispro [Humalog] 50 unit SQ BID 09/28/16 09/28/16 09/27/16 Losartan/Hydrochlorothiazide 1 each PO QDAY 09/28/16 09/28/16 09/27/16 [Losartan-Hctz 50-12.5 mg Tab] Previous Rx's Medication Instructions Recorded Last Taken Type Pantoprazole [Protonix] 40 mg PO QDAY #30 tablet 09/30/16 Unknown Rx Sucralfate [Carafate] 1 gm PO Q6HR 30 Days 09/30/16 Unknown Rx Cipro/Dexameth 0.3/0.1% [Ciprodex 4 drops OT BID #1 bottle 12/24/16 Unknown Rx OTIC] Allergies Allergy/AdvReac Type Severity Reaction Status Date / Time seafood Allergy Rash Uncoded 06/04/14 13:22 ED Dental HPI - General Chief complaint: Earache Stated complaint: COTTON STUCK IN EAR Source: patient Mode of arrival: Ambulatory Limitations: No Limitations - Related Data Home Medications Medication Instructions Recorded Confirmed Last Taken metFORMIN [Glucophage] 500 mg PO BID 12/13/12 09/28/16 09/27/16 Insulin Lispro [Humalog] 50 unit SQ BID 09/28/16 09/28/16 09/27/16 Losartan/Hydrochlorothiazide 1 each PO QDAY 09/28/16 09/28/16 09/27/16 [Losartan-Hctz 50-12.5 mg Tab] Previous Rx's Medication Instructions Recorded Last Taken Type Pantoprazole [Protonix] 40 mg PO QDAY #30 tablet 09/30/16 Unknown Rx Sucralfate [Carafate] 1 gm PO Q6HR 30 Days 09/30/16 Unknown Rx Cipro/Dexameth 0.3/0.1% [Ciprodex 4 drops OT BID #1 bottle 12/24/16 Unknown Rx OTIC] Allergies Allergy/AdvReac Type Severity Reaction Status Date / Time seafood Allergy Rash Uncoded 06/04/14 13:22 ED Review of Systems ROS: Stated complaint: COTTON STUCK IN EAR Other details as noted in HPI Constitutional: denies: chills, fever Eyes: denies: eye pain, eye discharge, vision change ENT: ear pain. denies: throat pain, dental pain, hearing loss, epistaxis, congestion Respiratory: denies: cough, shortness of breath, wheezing Cardiovascular: denies: chest pain, palpitations Gastrointestinal: denies: abdominal pain, nausea, vomiting, diarrhea Skin: denies: rash, lesions Neurological: denies: headache, weakness, paresthesias Psychiatric: denies: anxiety, depression ED Past Medical Hx - Past Medical History Hx Hypertension: Yes Hx Congestive Heart Failure: No Hx Diabetes: Yes Hx Renal Disease: No Hx Sickle Cell Disease: No Hx Asthma: No Hx COPD: No Additional medical history: PT DENIES ANY HX CARDIAC OR IRREG HEART. Glaucoma. Cataracts. Migraines. obesity - Surgical History Hx Appendectomy: Yes - Social History Smoking Status: Never Smoker - Medications Home Medications: Home Medications Medication Instructions Recorded Confirmed Last Taken Type metFORMIN [Glucophage] 500 mg PO BID 12/13/12 09/28/16 09/27/16 History Insulin Lispro [Humalog] 50 unit SQ BID 09/28/16 09/28/16 09/27/16 History Losartan/Hydrochlorothiazide 1 each PO QDAY 09/28/16 09/28/16 09/27/16 History [Losartan-Hctz 50-12.5 mg Tab] Pantoprazole [Protonix] 40 mg PO QDAY #30 tablet 09/30/16 Unknown Rx Sucralfate [Carafate] 1 gm PO Q6HR 30 Days 09/30/16 Unknown Rx Cipro/Dexameth 0.3/0.1% [Ciprodex 4 drops OT BID #1 bottle 12/24/16 Unknown Rx OTIC] ED Physical Exam - General Limitations: No Limitations General appearance: alert, in no apparent distress - Head Head exam: Present: atraumatic, normocephalic - Eye Eye exam: Present: normal appearance - ENT ENT exam: Present: other (there was a half an inch of cotton swab visualized just in front of the TM, forceps were gently used to remove the cotton swab, there was no evidence of infection of the TM or redness or perforation of the TM ) - Neck Neck exam: Present: normal inspection, full ROM - Respiratory Respiratory exam: Present: normal lung sounds bilaterally. Absent: respiratory distress - Cardiovascular Cardiovascular Exam: Present: regular rate, normal rhythm. Absent: systolic murmur, diastolic murmur, rubs, gallop - Neurological Exam Neurological exam: Present: alert, oriented X3, normal gait - Psychiatric Psychiatric exam: Present: normal affect, normal mood - Skin Skin exam: Present: warm, dry, intact, normal color. Absent: rash ED Course Vital Signs 12/24/16 11:25 Temperature 98.6 F Pulse Rate 77 Respiratory 16 Rate Blood Pressure 140/78 O2 Sat by Pulse 99 Oximetry ED Medical Decision Making - Medical Decision Making Foreign body of cotton swab was removed successfully with forceps during the examination. pt was provided with ciprodex ear drops for prophylaxis if symptoms of an infection begin to develop, otherwise, there is no need as the TM was clear at this time. Pt was advised to use Debrox drops in the future for ear wax removal instead of cotton swabs. Pt was advised with the given allergy to verify with the pharmacy that she is okay to take the drops and if a change is needed to be made to contact me again and I will change the drops, she reports understanding. Pt was given referrals to ENT and PCP for further evaluation. She was discharged in stable condition, alert and oriented, and in no respiratory distress. Critical care attestation.: If time is entered above; I have spent that time in minutes in the direct care of this critically ill patient, excluding procedure time. ED Disposition Clinical Impression: Foreign body in ear Qualifiers: Encounter type: initial encounter Laterality: right Qualified Code(s): T16.1XXA - Foreign body in right ear, initial encounter Disposition: TO HOME OR SELFCARE Is pt being admited?: No Does the pt Need Aspirin: No Condition: Stable Instructions: Ciprofloxacin/Dexamethasone (Into the ear), Ear Foreign Body (ED) Additional Instructions: Ear drops have been provided to you for prophylaxis. Please use as directed if needed. Please follow-up with PCP within 3-5 days. Please follow-up with ENT within 1 week. Return to the ED immediately with any continued or worsening symptoms. Prescriptions: Cipro/Dexameth 0.3/0.1% [Ciprodex OTIC] 4 drops OT BID #1 bottle Referrals: [facility] [Outside] - 3-5 Days [facility] [Outside] - 3-5 Days BERYL STEVENSON MD [Staff Physician] - 3-5 Days PRIMARY CAREMD [Primary Care Provider] - 3-5 Days Forms: Work/School Release Form(ED)
== END 2016-12-24 13:45 | disposition home or self-care (01) ==
LOC: ED 11:01
DX: T16.1XXA Foreign body in right ear, initial encounter (principal); Z91.013 Allergy to seafood; I10 Essential (primary) hypertension; E11.9 Type 2 diabetes mellitus without complications; W45.8XXA Other foreign body or object entering through skin, initial encounter; Y93.89 Activity, other specified; Y92.89 Other specified places as the place of occurrence of the external cause; Y99.8 Other external cause status

== ENCOUNTER 2017-05-10 09:45 | Emergency (ER) | payer OTHER, MEDICAID ==
[2017-05-10] MEDS ORDERED: TYLENOL ONE (10:18)
[2017-05-10] MEDS ORDERED: TYLENOL PO ONE (10:19)
[2017-05-10 10:24] VITALS: BP 149/79
[2017-05-10] MEDS ORDERED: MOTRIN PO ONE (12:26)
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
== END 2017-05-10 13:37 | disposition home or self-care (01) ==
LOC: ED 09:45
DX: S16.1XXA Strain of muscle, fascia and tendon at neck level, initial encounter (principal); I10 Essential (primary) hypertension; E11.9 Type 2 diabetes mellitus without complications; Z90.49 Acquired absence of other specified parts of digestive tract; Z79.4 Long term (current) use of insulin; V89.1XXA Person injured in unspecified nonmotor-vehicle accident, nontraffic, initial encounter; Y93.89 Activity, other specified; Y92.89 Other specified places as the place of occurrence of the external cause; Y99.8 Other external cause status
CPT/HCPCS: 72040; 72070; 99283

== ENCOUNTER 2017-06-13 18:50 | Emergency (ER) | payer MEDICAID, OTHER ==
[2017-06-13] MEDS ORDERED: ZOFRAN IV ONE (19:35)
[2017-06-13] MEDS ORDERED: NACL 0.9% 1000 ML 1,000 ML ONE (19:38)
[2017-06-13] MEDS ORDERED: NACL 0.9% 1000 ML 1,000 ML IV ONE (19:50)
[2017-06-13 19:57] LABS: Basophils # (Auto) 0.1 K/mm3 (0.0-0.1); Basophils % (Auto) 0.4 % (0.0-1.8); Hemoglobin 12.2 gm/dl (10.1-14.3); Lymphocytes # (Auto) 1.2 K/mm3 (1.2-5.4); Lymphocytes % (Auto) 8.8 % (13.4-35.0); Mean Corpuscular HGB Conc 32 % (30-34); Mean Corpuscular Volume 81 fl (79-97); Monocytes # (Auto) 0.4 K/mm3 (0.0-0.8); Monocytes % (Auto) 2.7 % (0.0-7.3); Platelet Count 315 K/mm3 (140-440); Red Blood Count 4.72 M/mm3 (3.65-5.03); Red Cell Distribution Width 12.5 % (13.2-15.2)
[2017-06-13 20:05] LABS: Mean Corpuscular Hemoglobin 26 pg (28-32)
[2017-06-13 20:10] LABS: Calcium 9.7 mg/dL (8.4-10.2)
[2017-06-13] MEDS ORDERED: HALDOL IM ONE (21:14)
--- NOTE | 2017-06-13 21:15 | Emergency Department Report ---
ED General Adult HPI - General Chief complaint: Nausea/Vomiting/Diarrhea Stated complaint: NAUSEA/VOMITING Time Seen by Provider: 06/13/17 21:08 Source: patient, RN notes reviewed Mode of arrival: Stretcher Limitations: No Limitations - History of Present Illness Initial comments: This is a 51-year-old female who was previously unknown to this provider. Primary care Dr.:Gato Past medical history: Diabetes, hypertension, history of ruptured appendicitis, recent hospital admission to [facility] for intractable nausea and vomiting, discharged yesterday. The patient presents to the ER the complaint of intractable nausea and vomiting. This has been going on for 1 week. She indicates even though that she was discharged yesterday, she really didn't feel any better. She reports innumerable episodes of nausea and vomiting today. But this is associated central chest pain which started at 5:00 in the morning, not associated with shortness of breath or diaphoresis. The abdominal pain is crampy, sharp, aching and all over. She denies urinary symptoms, denies hematemesis of bright red blood per rectum, and she cannot describe exacerbating or relieving factors. She reports being admitted to the hospital for approximately one week. -: Gradual, days(s) Location: head (patient describes headache which is throbbing, global, all over for 1 week. It is worse with emesis. It decreases with rest.), chest, abdomen Quality: aching Consistency: intermittent Improves with: rest Worsens with: eating Associated Symptoms: chest pain, headaches, loss of appetite, malaise, nausea/ vomiting, weakness. denies: confusion, cough, diaphoresis, fever/chills, rash, seizure, shortness of breath, syncope - Related Data Home Medications Medication Instructions Recorded Confirmed Last Taken metFORMIN [Glucophage] 500 mg PO BID 12/13/12 09/28/16 09/27/16 Insulin Lispro [Humalog] 50 unit SQ BID 09/28/16 09/28/16 09/27/16 Losartan/Hydrochlorothiazide 1 each PO QDAY 09/28/16 09/28/16 09/27/16 [Losartan-Hctz 50-12.5 mg Tab] Previous Rx's Medication Instructions Recorded Last Taken Type Pantoprazole [Protonix] 40 mg PO QDAY #30 tablet 09/30/16 Unknown Rx Sucralfate [Carafate] 1 gm PO Q6HR 30 Days oral.liqd 09/30/16 Unknown Rx Cipro/Dexameth 0.3/0.1% [Ciprodex 4 drops OT BID #1 bottle 12/24/16 Unknown Rx OTIC] Cyclobenzaprine [Flexeril] 10 mg PO QHS PRN #20 tablet 05/10/17 Unknown Rx Naproxen [Naprosyn] 500 mg PO BID #30 tablet 05/10/17 Unknown Rx Promethazine [Phenergan SUPPOS] 50 mg [place] Q6H PRN #20 supp.rect 06/14/17 Unknown Rx Allergies Allergy/AdvReac Type Severity Reaction Status Date / Time seafood Allergy Rash Uncoded 06/04/14 13:22 ED Review of Systems ROS: Stated complaint: NAUSEA/VOMITING Other details as noted in HPI Comment: All other systems reviewed and negative ED Past Medical Hx - Past Medical History Hx Hypertension: Yes Hx Congestive Heart Failure: No Hx Diabetes: Yes Hx Renal Disease: No Hx Sickle Cell Disease: No Hx Asthma: No Hx COPD: No Additional medical history: PT DENIES ANY HX CARDIAC OR IRREG HEART. Glaucoma. Cataracts. Migraines. obesity - Surgical History Hx Appendectomy: Yes - Social History Smoking Status: Never Smoker Substance Use Type: None - Medications Home Medications: Home Medications Medication Instructions Recorded Confirmed Last Taken Type metFORMIN [Glucophage] 500 mg PO BID 12/13/12 09/28/16 09/27/16 History Insulin Lispro [Humalog] 50 unit SQ BID 09/28/16 09/28/16 09/27/16 History Losartan/Hydrochlorothiazide 1 each PO QDAY 09/28/16 09/28/16 09/27/16 History [Losartan-Hctz 50-12.5 mg Tab] Pantoprazole [Protonix] 40 mg PO QDAY #30 tablet 09/30/16 Unknown Rx Sucralfate [Carafate] 1 gm PO Q6HR 30 Days oral.liqd 09/30/16 Unknown Rx Cipro/Dexameth 0.3/0.1% [Ciprodex 4 drops OT BID #1 bottle 12/24/16 Unknown Rx OTIC] Cyclobenzaprine [Flexeril] 10 mg PO QHS PRN #20 tablet 05/10/17 Unknown Rx Naproxen [Naprosyn] 500 mg PO BID #30 tablet 05/10/17 Unknown Rx Promethazine [Phenergan SUPPOS] 50 mg [place] Q6H PRN #20 supp.rect 06/14/17 Unknown Rx ED Physical Exam - General Limitations: No Limitations General appearance: alert, anxious, in distress, obese - Head Head exam: Present: atraumatic, normocephalic - Eye Eye exam: Present: normal appearance, EOMI - ENT ENT exam: Present: normal orophraynx, mucous membranes moist - Neck Neck exam: Present: normal inspection, full ROM - Respiratory Respiratory exam: Present: normal lung sounds bilaterally. Absent: respiratory distress - Cardiovascular Cardiovascular Exam: Present: normal rhythm, tachycardia, normal heart sounds. Absent: systolic murmur, diastolic murmur, rubs, gallop - GI/Abdominal GI/Abdominal exam: Present: soft, normal bowel sounds. Absent: distended, tenderness, guarding, rebound, rigid, pulsatile mass - Extremities Exam Extremities exam: Present: normal inspection, full ROM, normal capillary refill. Absent: pedal edema, joint swelling, calf tenderness - Back Exam Back exam: Present: normal inspection, full ROM. Absent: tenderness, CVA tenderness (R), paraspinal tenderness - Neurological Exam Neurological exam: Present: alert, oriented X3, CN II-XII intact, other ( Extraocular movements intact. Tongue midline. No facial droop. Facial sensation intact to light touch in the V1, V2, V3 distribution bilaterally. 5 and 5 strength in 4 extremities.. Sensation is intact to light touch in 4 extremities.) - Psychiatric Psychiatric exam: Present: anxious - Skin Skin exam: Present: warm, dry, intact, normal color. Absent: rash ED Course Vital Signs 06/13/17 06/13/17 19:18 22:00 Temperature 98 F Pulse Rate 105 H Respiratory 18 18 Rate Blood Pressure 129/90 O2 Sat by Pulse 99 Oximetry - Reevaluation(s) Reevaluation #1: 06/13/17 21:18 Differential diagnosis, including but not limited to: Diabetic gastroparesis, GERD, gastritis, hiatal hernia, pneumonia, acute coronary syndrome, esophagitis , obstruction Assessment and plan: 51-year-old female obese female, history of diabetes, unknown what her hemoglobin A1c is, status post recent admission to hospital for intractable nausea and vomiting, the primary complaint of nausea and vomiting, secondary complaints of chest pain and abdominal pain. Highly suspect diabetic gastroparesis. Laboratory studies reviewed and appreciated. Low risk by MIL score, low risk by heart scar, chest pain present for almost 24 hours, as per the [employer] clinical policy, myocardial infarction may be ruled out with one set of troponins as symptoms have present for greater than 8 hours. Cleanse check EKG, give Haldol for symptom control, attempt to obtain old medical records, obtained CT scan of the chest, CT scan of abdomen and pelvis and reassess. Reevaluation #2: 06/13/17 22:24 No further emesis is noted after Haldol. Old medical records are reviewed. Patient had an EGD done which demonstrated gastritis versus possible peptic ulcer disease. Also her throbbing headache is apparently chronic, and unchanged from her prior evaluation. Reevaluation #3: 06/13/17 22:44 No additional nausea and vomiting thus far. Patient had an episode of some coffee-ground emesis, her recent endoscopy is reviewed and appreciated. She can follow up with outpatient gastroenterology for this. Possibly has a component of gastritis and possible Vee-Andrade tear. Reevaluation #4: 06/13/17 23:51 CT scan of the chest negative for significant disease. Reevaluation #5: 06/14/17 00:[address] scan read demonstrates right-sided renal mass, which has been present since at least September 2016. Patient will be discharged with instructions to continue her current outpatient medications, to follow-up with outpatient gastroenterology, primary care, urology. ED Medical Decision Making - Lab Data Result diagrams: 06/13/17 19:36 06/13/17 19:36 Vital Signs 06/13/17 19:18 Temperature 98 F Pulse Rate 105 H Respiratory 18 Rate Blood Pressure 129/90 O2 Sat by Pulse 99 Oximetry Lab Results 06/13/17 06/13/17 Range/Units 19:36 19:36 WBC 13.3 H (4.5-11.0) K/mm3 RBC 4.72 (3.65-5.03) M/mm3 Hgb 12.2 (10.1-14.3) gm/dl Hct 38.0 (30.3-42.9) % MCV 81 (79-97) fl MCH 26 L (28-32) pg MCHC 32 (30-34) % RDW 12.5 L (13.2-15.2) % Plt Count 315 (140-440) K/mm3 Lymph % (Auto) 8.8 L (13.4-35.0) % Mills % (Auto) 2.7 (0.0-7.3) % Eos % (Auto) 0.0 (0.0-4.3) % Baso % (Auto) 0.4 (0.0-1.8) % Lymph # 1.2 (1.2-5.4) K/mm3 Mills # 0.4 (0.0-0.8) K/mm3 Eos # 0.0 (0.0-0.4) K/mm3 Baso # 0.1 (0.0-0.1) K/mm3 Seg Neutrophils % 88.1 H (40.0-70.0) % Seg Neutrophils # 11.7 H (1.8-7.7) K/mm3 Sodium 136 L (137-145) mmol/L Potassium 4.3 (3.6-5.0) mmol/L Chloride 92.5 L (98-107) mmol/L Carbon Dioxide 27 (22-30) mmol/L Anion Gap 21 mmol/L BUN 21 H (7-17) mg/dL Creatinine 1.2 (0.7-1.2) mg/dL Estimated GFR 57 ml/min BUN/Creatinine Ratio 18 % Glucose 296 H (65-100) mg/dL Calcium 9.7 (8.4-10.2) mg/dL Total Bilirubin 0.50 (0.1-1.2) mg/dL AST 15 (5-40) units/L ALT 12 (7-56) units/L Alkaline Phosphatase 80 (35-129) units/L Total Protein 8.3 H (6.3-8.2) g/dL Albumin 4.0 (3.9-5) g/dL Albumin/Globulin Ratio 0.9 % Lipase 11 L (13-60) units/L - EKG Data -: EKG Interpreted by Ny EKG shows normal: sinus rhythm - EKG Data When compared to previous EKG there are: previous EKG unavailable 06/13/17 22:24 Normal sinus, 89 bpm, normal axis, normal intervals, not morphologically consistent with ST elevation myocardial infarction Critical care attestation.: If time is entered above; I have spent that time in minutes in the direct care of this critically ill patient, excluding procedure time. ED Disposition Clinical Impression: Renal mass, right, Esophagitis Disposition: DC- TO HOME OR SELFCARE Is pt being admited?: No Does the pt Need Aspirin: No Condition: Stable Instructions: Gastritis (ED) Additional Instructions: CT scan of the chest demonstrated a thyroid mass. Follow-up with her primary care doctor for this within the next month to 6 weeks. Not following up as recommended may result in an undiagnosed tumor, cancer, malignancy. CT scan also demonstrated thickening of the esophagus. 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 Take the pain medication, nausea medication and stated/directed. Avoid consumption of heavy, spicy foods, Motrin, ibuprofen, Naprosyn, Aleve. Return to the ER right away with new pain, worsening pain, migration of pain, intractable nausea or vomiting, confusion, vomiting blood, defecating blood. Please continue the outpatient prescriptions that were provided for you from the other hospital. Do not take metformin for the next [address] scan of the abdomen and pelvis we demonstrated right-sided kidney mass. This may represent tumor, cancer, malignancy. Follow-up with the primary care doctor or urologist for this within the next month. Dr. Vazquez is a local urologist specialist. Dr. Sukhjinder Bella is a local primary care doctor. Dr. Benedict Olea is a local gastroenterology specialist. Otherwise, continue the medications that were recently prescribed for you, and use Phenergan suppositories needed for intractable nausea and vomiting. Referrals: PRIMARY MD TRIXIE [Primary Care Provider] - 3-5 Days SASHA VASQUEZ MD [Staff Physician] - 3-5 Days BENEDICT OLEA MD [Staff Physician] - 3-5 Days SUKHJINDER BELLA MD [Staff Physician] - 3-5 Days
[2017-06-13] MEDS ORDERED: PROTONIX IV ONE (21:25)
[2017-06-13] MEDS ORDERED: NACL ONE (22:02)
--- NOTE | 2017-06-13 23:49 | Cat Scan Report ---
FINAL REPORT PROCEDURE: CT ANGIO CHEST TECHNIQUE: Computerized tomographic angiography of the chest was performed after the IV injection of iodinated nonionic contrast including image processing. The image data was postprocessed using 2-dimensional multiplanar reformatted (MPR) and 3-dimensional (MIP and/or volume rendered) techniques. HISTORY: cp n/v COMPARISON: No prior studies are available for comparison. FINDINGS: There is a partially calcified left thyroid mass measuring 3.4 centimeters in diameter. Heart and pericardium: Normal. Thoracic aorta: Normal. Pulmonary vasculature: Normal. Lymph nodes: No enlarged thoracic lymph nodes. Lungs: Normal. Pleural space: No effusion, thickening, or pneumothorax. Musculoskeletal structures: No significant abnormality. There is thickening of the esophagus. A mass is not excluded. IMPRESSION: There is no pulmonary embolism. There is no thoracic aortic aneurysm or dissection. The lungs are clear. There is a partially calcified left thyroid mass measuring 3.4 centimeters in diameter. There is thickening of the esophagus. A mass is not excluded.
--- NOTE | 2017-06-13 23:57 | Cat Scan Report ---
FINAL REPORT PROCEDURE: CT ABDOMEN PELVIS W CON TECHNIQUE: Computerized axial tomography of the abdomen and pelvis was performed after the IV injection of iodinated nonionic contrast. HISTORY: abd pain COMPARISON: No prior studies are available for comparison. FINDINGS: Visualized lower thorax: There is thickening of the esophagus. A mass is not excluded.. Liver: Normal size and attenuation. Spleen: Normal size and attenuation. Gallbladder and biliary system: Normal. Pancreas: Normal. Adrenals: Normal. Kidneys: There is a complex exophytic mass of the right kidney measuring up to 9 centimeters in diameter containing cystic, solid, and calcific densities. Malignancy cannot be excluded.. GI tract: Normal. Lymph nodes and mesentery: Normal. Vasculature: Normal. Bladder: Normal. Reproductive organs: Uterus and ovaries are unremarkable.. Peritoneum: There is no ascites or free air, abscess or adenopathy.. Musculoskeletal structures: There is a lucent lesion in L1 which could be a hemangioma. Metastatic malignancy considered less likely but not excluded. Other: None. IMPRESSION: There is thickening of the esophagus. A mass is not excluded.. There is a complex exophytic mass of the right kidney measuring up to 9 centimeters in diameter containing cystic, solid, and calcific densities. Malignancy cannot be excluded.. There is no ascites or free air, abscess or adenopathy.. There is a lucent lesion in L1 which could be a hemangioma. Metastatic malignancy considered less likely but not excluded.
[2017-06-14 01:10] VITALS: BP 148/66
== END 2017-06-14 01:11 | disposition home or self-care (01) ==
LOC: ED 18:50
DX: K20.9 Esophagitis, unspecified (principal); N28.89 Other specified disorders of kidney and ureter; I10 Essential (primary) hypertension; E11.9 Type 2 diabetes mellitus without complications; Z79.4 Long term (current) use of insulin; Z91.013 Allergy to seafood
CPT/HCPCS: 36415; 71275; 74177; 80053; 82271; 82962; 83690; 84484; 85025; 93005; 93010; 96361; 96372; 96374; 96375; 99285; C9113; J1630; J2405; J7030; Q9967

== ENCOUNTER 2017-07-18 09:54 | Outpatient (CLI) | payer MEDICAID ==
[2017-07-18 10:27] LABS: Blood Urea Nitrogen 17 mg/dL (7-17)
--- NOTE | 2017-07-19 13:02 | Magnetic Resonance Report ---
MRI ABDOMEN WITHOUT AND WITH CONTRAST : 07/18/17 10:00:00 CLINICAL: Right renal mass. COMPARISON :06/13/17 and 09/28/16 CT TECHNIQUE: Axial T1 in phase and opposed phase, coronal and axial T2 and axial T2 fat sat sequences plus multiphase postcontrast T1 fat sat sequences plus thin and thick slab MRCP sequences on a 1.5 Sofia magnet. 20.0 cc of Multihance was injected intravenously for the contrast portion of the exam and consent was obtained prior to the administration of the contrast. FINDINGS: An exophytic encapsulated multicystic anterior right renal mass measures 8.4 x 7.2 x 8.0 cm. The mass arises from the midportion of the kidney. It contains multiple cysts with thin septations. The cysts are uniformly hyperintense on T2 and mostly hypointense on T1. A 4.0 x 2.8 cm cyst is hyperintense on T1. The mass demonstrates no enhancement postcontrast. A few additional subcentimeter cysts of the right kidney. The right renal collecting system and ureter are normal and the right kidney measures 11.2 cm in length. The left kidney is normal with a normal nondilated renal collecting system and the left kidney measures 10.8 cm in length. Normal liver size, contour and signal. No liver mass or cyst. The bile ducts and gallbladder are normal. Normal hepatic veins and portal veins. Normal stomach, pancreas, duodenum and spleen. The adrenal glands are normal. No lymphadenopathy. The inferior vena cava and aorta are normal. No ascites. The imaged portions of small bowel and colon are normal. The bones are normal. IMPRESSION: 1. An 8.4 cm multilocular cystic nephroma of the right kidney. 2. The rest of the exam is normal.
== END 2017-07-18 09:55 | disposition home or self-care (01) ==
LOC: MRI 09:54
PROVIDERS: ATTEND Urology
DX: N28.1 Cyst of kidney, acquired (principal)
CPT/HCPCS: 36415; 74183; 82565; 84520; A9577

== ENCOUNTER 2018-01-08 10:03 | Emergency (ER) | payer MEDICAID ==
[2018-01-08 10:10] VITALS: BP 141/72
--- NOTE | 2018-01-08 10:19 | Emergency Department Report ---
ED Lower Extremity HPI - General Chief Complaint: Extremity Injury, Lower Stated Complaint: LEG PAIN Time Seen by Provider: 01/08/18 10:13 Source: patient Mode of arrival: Ambulatory Limitations: No Limitations - History of Present Illness Initial Comments: bilat low leg pain R> L after a fall at the chiropractors yesterday no syncope no other injuries MD Complaint: leg injury -: Sudden, days(s) (1) Injury: Leg: Right, Left Type of Injury: unknown Place: other Severity: moderate Severity scale (0 -10): 6 Improves With: rest Worsens With: weight bearing Context: fall Associated Symptoms: ambulatory. denies: swelling, numbness, tingling - Related Data Home Medications Medication Instructions Recorded Confirmed Last Taken metFORMIN [Glucophage] 500 mg PO BID 12/13/12 09/28/16 09/27/16 Insulin Lispro [Humalog] 50 unit SQ BID 09/28/16 09/28/16 09/27/16 Losartan/Hydrochlorothiazide 1 each PO QDAY 09/28/16 09/28/16 09/27/16 [Losartan-Hctz 50-12.5 mg Tab] Previous Rx's Medication Instructions Recorded Last Taken Type Pantoprazole [Protonix] 40 mg PO QDAY #30 tablet 09/30/16 Unknown Rx Sucralfate [Carafate] 1 gm PO Q6HR 30 Days oral.liqd 09/30/16 Unknown Rx Cipro/Dexameth 0.3/0.1% [Ciprodex 4 drops OT BID #1 bottle 12/24/16 Unknown Rx OTIC] Cyclobenzaprine [Flexeril] 10 mg PO QHS PRN #20 tablet 05/10/17 Unknown Rx Promethazine [Phenergan SUPPOS] 50 mg [place] Q6H PRN #20 supp.rect 06/14/17 Unknown Rx Naproxen [Naprosyn TAB] 500 mg PO BID #20 tablet 01/08/18 Unknown Rx Allergies Allergy/AdvReac Type Severity Reaction Status Date / Time seafood Allergy Rash Uncoded 06/04/14 13:22 ED Review of Systems ROS: Stated complaint: LEG PAIN Other details as noted in HPI Comment: All other systems reviewed and negative Musculoskeletal: arthralgia Neurological: denies: headache, paresthesias ED Past Medical Hx - Past Medical History Previous Medical History?: Yes Hx Hypertension: Yes Hx Congestive Heart Failure: No Hx Diabetes: Yes Hx Renal Disease: No Hx Sickle Cell Disease: No Hx Asthma: No Hx COPD: No Additional medical history: PT DENIES ANY HX CARDIAC OR IRREG HEART. Glaucoma. Cataracts. Migraines. obesity - Surgical History Past Surgical History?: Yes Hx Appendectomy: Yes - Social History Smoking Status: Never Smoker Substance Use Type: None - Medications Home Medications: Home Medications Medication Instructions Recorded Confirmed Last Taken Type metFORMIN [Glucophage] 500 mg PO BID 12/13/12 09/28/16 09/27/16 History Insulin Lispro [Humalog] 50 unit SQ BID 09/28/16 09/28/16 09/27/16 History Losartan/Hydrochlorothiazide 1 each PO QDAY 09/28/16 09/28/16 09/27/16 History [Losartan-Hctz 50-12.5 mg Tab] Pantoprazole [Protonix] 40 mg PO QDAY #30 tablet 09/30/16 Unknown Rx Sucralfate [Carafate] 1 gm PO Q6HR 30 Days oral.liqd 09/30/16 Unknown Rx Cipro/Dexameth 0.3/0.1% [Ciprodex 4 drops OT BID #1 bottle 12/24/16 Unknown Rx OTIC] Cyclobenzaprine [Flexeril] 10 mg PO QHS PRN #20 tablet 05/10/17 Unknown Rx Promethazine [Phenergan SUPPOS] 50 mg [place] Q6H PRN #20 supp.rect 06/14/17 Unknown Rx Naproxen [Naprosyn TAB] 500 mg PO BID #20 tablet 01/08/18 Unknown Rx ED Physical Exam - General Limitations: No Limitations General appearance: alert, in no apparent distress - Head Head exam: Present: atraumatic, normocephalic - Eye Eye exam: Present: normal appearance - ENT ENT exam: Present: mucous membranes moist - Neck Neck exam: Present: normal inspection - Respiratory Respiratory exam: Present: normal lung sounds bilaterally. Absent: respiratory distress - Cardiovascular Cardiovascular Exam: Present: regular rate, normal rhythm. Absent: systolic murmur, diastolic murmur, rubs, gallop - GI/Abdominal GI/Abdominal exam: Present: soft, normal bowel sounds - Extremities Exam Extremities exam: Present: normal inspection, full ROM, tenderness, other (TTP bilat tib/fib (proximal). FROM hips, knees, ankles. Pedal pulses 2+, sensation intact.) - Back Exam Back exam: Present: normal inspection - Neurological Exam Neurological exam: Present: alert, oriented X3 - Psychiatric Psychiatric exam: Present: normal affect, normal mood - Skin Skin exam: Present: warm, dry, intact, normal color. Absent: rash ED Course Vital Signs 01/08/18 10:07 Temperature 98.1 F Pulse Rate 83 Respiratory 20 Rate Blood Pressure 141/72 O2 Sat by Pulse 97 Oximetry ED Lower Extremity MDM - Radiology Data Radiology results: report reviewed negative - Medical Decision Making fell onto both legs at chiropractor yesterday exam benign other than tenderness. FROM, ambulatory imaging shows no acute findings fu pcp/ortho - Differential Diagnosis contusion, strain, fx Critical care attestation.: If time is entered above; I have spent that time in minutes in the direct care of this critically ill patient, excluding procedure time. ED Disposition Clinical Impression: Contusion of leg Qualifiers: Encounter type: initial encounter Laterality: unspecified laterality Qualified Code(s): S80.10XA - Contusion of unspecified lower leg, initial encounter Disposition: - TO HOME OR SELFCARE Is pt being admited?: No Condition: Good Instructions: Contusion in Adults (ED) Prescriptions: Naproxen [Naprosyn TAB] 500 mg PO BID #20 tablet Referrals: RAN PARKER MD [Staff Physician] - 3-5 Days Time of Disposition: 11:11
--- NOTE | 2018-01-08 11:08 | XRay Report ---
BILATERAL TIBIA/FIBULA, 2 views: History: Fall, leg pain Views of the bilateral tibia/fibula demonstrate normal mineralization and contours for this patient's age. No destructive changes are noted and the adjacent soft tissues are normal. IMPRESSION: No evidence for acute injury.
== END 2018-01-08 11:22 | disposition home or self-care (01) ==
LOC: ED 10:03
DX: S80.12XA Contusion of left lower leg, initial encounter (principal); S80.11XA Contusion of right lower leg, initial encounter; I10 Essential (primary) hypertension; E11.9 Type 2 diabetes mellitus without complications; Z91.013 Allergy to seafood; Z79.4 Long term (current) use of insulin; Z90.49 Acquired absence of other specified parts of digestive tract; W18.39XA Other fall on same level, initial encounter; Y93.89 Activity, other specified; Y92.89 Other specified places as the place of occurrence of the external cause; Y99.8 Other external cause status
CPT/HCPCS: 99283

== ENCOUNTER 2018-03-27 10:26 | Emergency (ER) | payer MEDICAID ==
[2018-03-27] MEDS ORDERED: ZOFRAN IV ONE (11:12)
--- NOTE | 2018-03-27 11:18 | Emergency Department Report ---
HPI - General Chief Complaint: Nausea/Vomiting/Diarrhea Time Seen by Provider: 03/27/18 11:06 - HPI HPI: Room 7 The patient is a 52-year-old female presented with a chief complaint of nausea vomiting. The patient states his symptoms began 3 days ago. Patient states she also has a headache and dizziness which she attributes to her migraines. Patient denies any preceding trauma or history of fever. The patient states she had episodes of diarrhea for the first 2 days. Patient states she is unaware of any sick contacts. Patient denies chest pain or abdominal pain. Location: [See above] Duration: 3-4 days Quality: Nausea Severity: Moderate Modifying factors: [see above] Context: [see above] Mode of transportation: [not driving] ED Past Medical Hx - Past Medical History Previous Medical History?: Yes Hx Hypertension: Yes Hx Diabetes: Yes Hx Headaches / Migraines: Yes Additional medical history: PT DENIES ANY HX CARDIAC OR IRREG HEART. Glaucoma. Cataracts. Migraines. obesity - Surgical History Past Surgical History?: Yes Hx Appendectomy: Yes - Family History Family history: no significant - Social History Smoking Status: Never Smoker Substance Use Type: None (denies illicit drug use) - Medications Home Medications: Home Medications Medication Instructions Recorded Confirmed Last Taken Type metFORMIN [Glucophage] 500 mg PO BID 12/13/12 09/28/16 09/27/16 History Insulin Lispro [Humalog] 50 unit SQ BID 09/28/16 09/28/16 09/27/16 History Losartan/Hydrochlorothiazide 1 each PO QDAY 09/28/16 09/28/16 09/27/16 History [Losartan-Hctz 50-12.5 mg Tab] Pantoprazole [Protonix] 40 mg PO QDAY #30 tablet 09/30/16 Unknown Rx Sucralfate [Carafate] 1 gm PO Q6HR 30 Days oral.liqd 09/30/16 Unknown Rx Cipro/Dexameth 0.3/0.1% [Ciprodex 4 drops OT BID #1 bottle 12/24/16 Unknown Rx OTIC] Promethazine [Phenergan SUPPOS] 50 mg [place] Q6H PRN #20 supp.rect 06/14/17 Unknown Rx Naproxen [Naprosyn TAB] 500 mg PO BID #20 tablet 01/08/18 Unknown Rx Cyclobenzaprine [Flexeril 10 MG 10 mg PO QHS PRN #20 tablet 01/23/18 Unknown Rx TAB] Acetaminophen/Codeine [Tylenol 1 tab PO Q6H PRN #14 tab 02/07/18 Unknown Rx /Codeine # 3 tab] Clindamycin [Clindamycin CAP] 300 mg PO Q8H 10 Days #30 cap 02/07/18 Unknown Rx Ondansetron [Zofran Odt] 4 mg PO Q8HR PRN #14 tab.rapdis 02/17/18 Unknown Rx traMADol [Ultram 50 MG tab] 50 mg PO Q4HR PRN #14 tablet 02/17/18 Unknown Rx ED Review of Systems ROS: Stated complaint: NAUSEA/WEAKNESS/HYPERGLYCEMIA Other details as noted in HPI Constitutional: denies: fever Eyes: denies: eye pain ENT: denies: throat pain Respiratory: no symptoms reported Cardiovascular: denies: chest pain Endocrine: no symptoms reported Gastrointestinal: nausea, vomiting, diarrhea. denies: abdominal pain Genitourinary: denies: dysuria Musculoskeletal: denies: back pain Neurological: headache Physical Exam - Physical Exam Vital Signs: Vital Signs 03/27/18 10:35 Temperature 97.9 F Pulse Rate 83 Respiratory 18 Rate Blood Pressure 112/64 O2 Sat by Pulse 99 Oximetry Physical Exam: GENERAL: The patient is well-developed well-nourished female lying on stretcher not appearing to be in acute distress. [] HEENT: Normocephalic. Atraumatic. Extraocular motions are intact. Patient has moist mucous membranes. NECK: Supple. Trachea midline CHEST/LUNGS: Clear to auscultation. There is no respiratory distress noted. HEART/CARDIOVASCULAR: Regular. There is no tachycardia. There is no gallop rub or murmur. ABDOMEN: Abdomen is soft, nontender. Patient has normal bowel sounds. There is no abdominal distention. SKIN: There is no rash. There is no edema. There is no diaphoresis. NEURO: The patient is awake, alert, and oriented. The patient is cooperative. The patient has no focal neurologic deficits. The patient has normal speech. Cranial nerves II through XII grossly intact, no drift MUSCULOSKELETAL: There is no evidence of acute injury. ED Course Vital Signs 03/27/18 10:35 Temperature 97.9 F Pulse Rate 83 Respiratory 18 Rate Blood Pressure 112/64 O2 Sat by Pulse 99 Oximetry ED Medical Decision Making - Lab Data Result diagrams: 03/27/18 11:06 03/27/18 11:06 Laboratory Tests 03/27/18 03/27/18 03/27/18 10:35 11:00 11:06 WBC 6.8 RBC 4.43 Hgb 11.4 Hct 36.1 MCV 81 MCH 26 L MCHC 32 RDW 12.8 L Plt Count 250 Lymph % (Auto) 30.1 [place] % (Auto) 7.4 H Eos % (Auto) 2.5 Baso % (Auto) 0.7 Lymph # 2.0 [place] # 0.5 Eos # 0.2 Baso # 0.0 Seg Neutrophils % 59.3 Seg Neutrophils # 4.0 VBG pH Sodium Potassium Chloride Carbon Dioxide Anion Gap BUN Creatinine Estimated GFR BUN/Creatinine Ratio Glucose POC Glucose 261 H Calcium Total Bilirubin Direct Bilirubin AST ALT Alkaline Phosphatase Total Creatine Kinase CK-MB (CK-2) CK-MB (CK-2) Rel Index Troponin T Total Protein Albumin Albumin/Globulin Ratio Lipase Urine Color Yellow Urine Turbidity Slightly-cloudy Urine pH 5.0 Ur Specific [place] 1.012 Urine Protein 30 mg/dl Urine Glucose (UA) >=500 Urine Ketones Neg Urine Blood Neg Urine Nitrite Neg Urine Bilirubin Neg Urine Urobilinogen < 2.0 Ur Leukocyte Esterase Neg Urine WBC (Auto) 3.0 Urine RBC (Auto) 1.0 U Epithel Cells (Auto) 5.0 Urine Bacteria (Auto) 2+ Hyaline Casts 6 Urine Mucus Few 03/27/18 03/27/18 11:06 11:22 WBC RBC Hgb Hct MCV MCH MCHC RDW Plt Count Lymph % (Auto) [place] % (Auto) Eos % (Auto) Baso % (Auto) Lymph # [place] # Eos # Baso # Seg Neutrophils % Seg Neutrophils # VBG pH 7.375 Sodium 136 L Potassium 4.4 Chloride 94.6 L Carbon Dioxide 26 Anion Gap 20 BUN 36 H Creatinine 2.3 H Estimated GFR 27 BUN/Creatinine Ratio 16 Glucose 326 H POC Glucose Calcium 9.3 Total Bilirubin 0.40 Direct Bilirubin < 0.2 AST 8 ALT 7 Alkaline Phosphatase 70 Total Creatine Kinase 47 CK-MB (CK-2) < 1.0 CK-MB (CK-2) Rel Index 2.1 Troponin T < 0.010 Total Protein 7.4 Albumin 4.0 Albumin/Globulin Ratio 1.2 Lipase 31 Urine Color Urine Turbidity Urine pH Ur Specific [place] Urine Protein Urine Glucose (UA) Urine Ketones Urine Blood Urine Nitrite Urine Bilirubin Urine Urobilinogen Ur Leukocyte Esterase Urine WBC (Auto) Urine RBC (Auto) U Epithel Cells (Auto) Urine Bacteria (Auto) Hyaline Casts Urine Mucus - EKG Data -: EKG Interpreted by Ma EKG shows normal: sinus rhythm Rate: normal - EKG Data When compared to previous EKG there are: previous EKG unavailable Interpretation: other (no ischemic changes seen) - Radiology Data Radiology results: report reviewed (CT head), image reviewed (CT head) [facility] [address] [place] [address] Cat Scan Report Signed Patient: ANGELITA DELGADO MR#: [id number] : 1965 Acct:[id number] Age/Sex: 52 / F ADM Date: 03/27/18 Loc: ED Attending Dr: Ordering Physician: NATALY ADEN MD Date of Service: 03/27/18 Pro cedure(s): CT head/brain wo con Accession Number(s): [id number] cc: NATALY ADEN MD CT HEAD WITHOUT CONTRAST: HISTORY: Headache, nausea and vomiting. TECHNIQUE: Sequential 2.5mm CT images. COMPARISON: none. FINDINGS: Cerebral Parenchyma: Within normal limits. Cerebellum: Within normal limits. Brainstem: Within normal limits. Ventricles: Normal. 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 This mass appears to exert mild mass effect on the optic chiasm, correlate for visual symptoms. There is no evidence for internal calcifications or cystic change. Extra-axial spaces: Normal. Basal Cisterns: Normal. Intracranial Hemorrhage: None. Midline Shift: None. Calvarium: Normal. Sinuses: Normal. Mastoid Air Cells: Normal. Visualized Orbits: Normal. 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 Consider further evaluation with MRI with and without contrast IAC protocol. No acute intracranial process is identified. Transcribed By: TTR Dictated By: KENNETH MELO JR, MD Electronically Authenticated By: KENNETH MELO JR, MD Signed Date/Time: 03/27/18 1242 DD/ 1239 TD/TT: 03/27/18 1242 - Medical Decision Making I discussed with the patient her lab results as well as CT report. Patient made aware of her abnormal renal function in the setting of nausea and vomiting. I recommend the patient admitted to the hospital for rehydration and evaluation of acute renal failure. Patient verbalized understanding and states she wishes to leave the hospital AGAINST MEDICAL ADVICE. 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 ED Disposition Clinical Impression: Acute renal failure, Nausea vomiting and diarrhea, Headache, Pituitary mass Disposition: LEFT AGAINST MED ADVICE Is pt being admited?: No Does the pt Need Aspirin: No Condition: Undetermined Referrals: PRIMARY CARE, [Primary Care Provider] - 3-5 Days Time of Disposition: 14:25 (patient leaving AMA)
[2018-03-27 11:27] LABS: Basophils % (Auto) 0.7 % (0.0-1.8); Eosinophils # (Auto) 0.2 K/mm3 (0.0-0.4); Eosinophils % (Auto) 2.5 % (0.0-4.3); Hematocrit 36.1 % (30.3-42.9); Hemoglobin 11.4 gm/dl (10.1-14.3); Lymphocytes % (Auto) 30.1 % (13.4-35.0); Mean Corpuscular HGB Conc 32 % (30-34); Mean Corpuscular Volume 81 fl (79-97); Monocytes # (Auto) 0.5 K/mm3 (0.0-0.8); Monocytes % (Auto) 7.4 % (0.0-7.3); Platelet Count 250 K/mm3 (140-440); Red Blood Count 4.43 M/mm3 (3.65-5.03); Red Cell Distribution Width 12.8 % (13.2-15.2)
[2018-03-27 11:50] LABS: Alanine Aminotransferase 7 units/L (7-56); BUN/Creatinine Ratio 16; Blood Urea Nitrogen 36 mg/dL (7-17); Calcium 9.3 mg/dL (8.4-10.2); Hemolysis Index 4
[2018-03-27 11:53] LABS: Bilirubin,Direct < 0.2 mg/dL (0-0.2); Creatine Kinase MB < 1.0 ng/mL (0.0-4.0)
[2018-03-27 11:56] LABS: Bacteria,Urine 2+ /HPF (Negative); Bilirubin,Urine NEG (Negative); Blood,Urine NEG (Negative); Color,Urine Yellow (Yellow); Hyaline Casts,Urine 6 /LPF; Mucus,Urine FEW /HPF; Urobilinogen,Urine < 2.0 mg/dL (<2.0)
[2018-03-27] MEDS ORDERED: NACL 0.9% 1000 ML 1,000 ML IV ONE (12:32)
--- NOTE | 2018-03-27 12:44 | Cat Scan Report ---
CT HEAD WITHOUT CONTRAST: HISTORY: Headache, nausea and vomiting. TECHNIQUE: Sequential 2.5mm CT images. COMPARISON: none. FINDINGS: Cerebral Parenchyma: Within normal limits. Cerebellum: Within normal limits. Brainstem: Within normal limits. Ventricles: Normal. 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 This mass appears to exert mild mass effect on the optic chiasm, correlate for visual symptoms. There is no evidence for internal calcifications or cystic change. Extra-axial spaces: Normal. Basal Cisterns: Normal. Intracranial Hemorrhage: None. Midline Shift: None. Calvarium: Normal. Sinuses: Normal. Mastoid Air Cells: Normal. Visualized Orbits: Normal. 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 Consider further evaluation with MRI with and without contrast IAC protocol. No acute intracranial process is identified.
[2018-03-27 14:34] VITALS: BP 115/70
== END 2018-03-27 14:34 | disposition left against medical advice (07) ==
LOC: ED 10:26
DX: N17.9 Acute kidney failure, unspecified (principal); R22.0 Localized swelling, mass and lump, head; R11.2 Nausea with vomiting, unspecified; R19.7 Diarrhea, unspecified; I10 Essential (primary) hypertension; E11.9 Type 2 diabetes mellitus without complications; G43.909 Migraine, unspecified, not intractable, without status migrainosus; Z90.49 Acquired absence of other specified parts of digestive tract; Z79.4 Long term (current) use of insulin; Z91.040 Latex allergy status; Z91.013 Allergy to seafood; Z91.048 Other nonmedicinal substance allergy status
CPT/HCPCS: 36415; 70450; 80048; 80076; 81001; 82550; 82553; 82805; 82962; 83690; 84484; 85025; 93005; 93010; 96361; 96374; 99284; J2405; J7030

== ENCOUNTER 2018-05-27 14:41 | Emergency (ER) | payer MEDICAID ==
--- NOTE | 2018-05-27 14:54 | Emergency Department Report ---
Blank Doc - Documentation Documentation: This is a 52-year-old female that presents with body aches with SOB. Denies any chest pain. This initial assessment/diagnostic orders/clinical plan/treatment(s) is/are subject to change based on patient's health status, clinical progression and re- assessment by fellow clinical providers in the ED. Further treatment and workup at subsequent clinical providers discretion. Patient/guardians urged not to elope from the ED as their condition may be serious if not clinically assessed and managed. Initial orders include: 1- Patient sent to MAIN ED for further evaluation and treatment 2- Labs 3- EKG 4- CXR
[2018-05-27 15:13] LABS: Basophils # (Auto) 0.1 K/mm3 (0.0-0.1); Basophils % (Auto) 0.9 % (0.0-1.8); Eosinophils # (Auto) 0.1 K/mm3 (0.0-0.4); Hematocrit 38.5 % (30.3-42.9); Hemoglobin 12.6 gm/dl (10.1-14.3); Lymphocytes # (Auto) 2.3 K/mm3 (1.2-5.4); Lymphocytes % (Auto) 22.4 % (13.4-35.0); Mean Corpuscular HGB Conc 33 % (30-34); Mean Corpuscular Volume 80 fl (79-97); Monocytes # (Auto) 0.7 K/mm3 (0.0-0.8); Monocytes % (Auto) 6.7 % (0.0-7.3); Platelet Count 320 K/mm3 (140-440); Red Blood Count 4.79 M/mm3 (3.65-5.03); Red Cell Distribution Width 12.8 % (13.2-15.2)
[2018-05-27 15:29] LABS: INR 0.97 (0.87-1.13)
[2018-05-27 15:30] LABS: Partial Thromboplastin Time 24.6 Sec. (24.2-36.6)
[2018-05-27 15:37] LABS: Alanine Aminotransferase 8 units/L (7-56); Albumin 4.4 g/dL (3.9-5); BUN/Creatinine Ratio 14; Blood Urea Nitrogen 32 mg/dL (7-17); Calcium 9.7 mg/dL (8.4-10.2); Hemolysis Index 6
[2018-05-27 15:46] LABS: Bilirubin,Direct < 0.2 mg/dL (0-0.2)
[2018-05-27] MEDS ORDERED: ZOFRAN IV ONE ×2 (17:54→20:43)
[2018-05-27] MEDS ORDERED: NACL 0.9% 1000 ML 1,000 ML IV ONE ×3 (17:54→20:48)
--- NOTE | 2018-05-27 17:54 | Emergency Department Report ---
<MALLORY MORAMichael - Last Filed: 05/27/18 19:55> ED N/V/D HPI - General Chief complaint: Hyperglycemia Stated complaint: HIGH SUGAR/SOB Time Seen by Provider: 05/27/18 14:53 Source: patient Mode of arrival: Wheelchair Limitations: No Limitations - History of Present Illness Initial comments: 52-year-old female with history of diabetes, chronic kidney disease, presents to ED with vomiting, diarrhea, and elevated glucose. Patient reports three-day history of nausea, vomiting, diarrhea, headache. Patient reports her son and daughter are both sick with same symptoms. Patient went to her PCPs office today for the stomach virus, Accu-Chek was done, which was elevated, and she is instructed to come to the ER. MD complaint: nausea, vomiting, diarrhea -: days(s) (3) Description of Vomiting: food contents Description of Diarrhea: water Associated Abdominal Pain: No Severity: moderate Consistency: constant Improves with: none Worsens with: none Context: sick contacts Associated Symptoms: nausea/vomiting. denies: fever/chills - Related Data Home Medications Medication Instructions Recorded Confirmed Last Taken metFORMIN [Glucophage] 500 mg PO BID 12/13/12 09/28/16 09/27/16 Insulin Lispro [Humalog] 50 unit SQ BID 09/28/16 09/28/16 09/27/16 Losartan/Hydrochlorothiazide 1 each PO QDAY 09/28/16 09/28/16 09/27/16 [Losartan-Hctz 50-12.5 mg Tab] Previous Rx's Medication Instructions Recorded Last Taken Type Pantoprazole [Protonix] 40 mg PO QDAY #30 tablet 09/30/16 Unknown Rx Sucralfate [Carafate] 1 gm PO Q6HR 30 Days oral.liqd 09/30/16 Unknown Rx Cipro/Dexameth 0.3/0.1% [Ciprodex 4 drops OT BID #1 bottle 12/24/16 Unknown Rx OTIC] Promethazine [Phenergan SUPPOS] 50 mg [place] Q6H PRN #20 supp.rect 06/14/17 Unknown Rx Naproxen [Naprosyn TAB] 500 mg PO BID #20 tablet 01/08/18 Unknown Rx Cyclobenzaprine [Flexeril 10 MG 10 mg PO QHS PRN #20 tablet 01/23/18 Unknown Rx TAB] Acetaminophen/Codeine [Tylenol 1 tab PO Q6H PRN #14 tab 02/07/18 Unknown Rx /Codeine # 3 tab] Clindamycin [Clindamycin CAP] 300 mg PO Q8H 10 Days #30 cap 02/07/18 Unknown Rx Ondansetron [Zofran Odt] 4 mg PO Q8HR PRN #14 tab.rapdis 02/17/18 Unknown Rx traMADol [Ultram 50 MG tab] 50 mg PO Q4HR PRN #14 tablet 02/17/18 Unknown Rx Tramadol HCl [Ultram] 50 mg PO QAM PRN #12 tablet 04/11/18 Unknown Rx Dicyclomine [Bentyl] 20 mg PO QID PRN #20 tablet 05/27/18 Unknown Rx Ondansetron [Zofran Odt] 4 mg PO Q8HR PRN #20 tab.rapdis 05/27/18 Unknown Rx Allergies Allergy/AdvReac Type Severity Reaction Status Date / Time Latex, Natural Rubber Allergy Itching Verified 04/11/18 10:35 shellfish derived Allergy Rash Verified 04/11/18 10:35 ED Review of Systems Comment: All other systems reviewed and negative Constitutional: denies: chills, fever Respiratory: denies: cough, shortness of breath Cardiovascular: denies: chest pain Gastrointestinal: nausea, vomiting, diarrhea. denies: abdominal pain Genitourinary: frequency ED Past Medical Hx - Past Medical History Previous Medical History?: Yes Hx Hypertension: Yes Hx Congestive Heart Failure: No Hx Diabetes: Yes Hx Renal Disease: No Hx Sickle Cell Disease: No Hx Headaches / Migraines: Yes Hx Asthma: No Hx COPD: No Additional medical history: PT DENIES ANY HX CARDIAC OR IRREG HEART. Glaucoma. Cataracts. Migraines. obesity - Surgical History Past Surgical History?: Yes Hx Appendectomy: Yes - Social History Smoking Status: Never Smoker Substance Use Type: None - Medications Home Medications: Home Medications Medication Instructions Recorded Confirmed Last Taken Type metFORMIN [Glucophage] 500 mg PO BID 12/13/12 09/28/16 09/27/16 History Insulin Lispro [Humalog] 50 unit SQ BID 09/28/16 09/28/16 09/27/16 History Losartan/Hydrochlorothiazide 1 each PO QDAY 09/28/16 09/28/16 09/27/16 History [Losartan-Hctz 50-12.5 mg Tab] Pantoprazole [Protonix] 40 mg PO QDAY #30 tablet 09/30/16 Unknown Rx Sucralfate [Carafate] 1 gm PO Q6HR 30 Days oral.liqd 09/30/16 Unknown Rx Cipro/Dexameth 0.3/0.1% [Ciprodex 4 drops OT BID #1 bottle 12/24/16 Unknown Rx OTIC] Promethazine [Phenergan SUPPOS] 50 mg [place] Q6H PRN #20 supp.rect 06/14/17 Unknown Rx Naproxen [Naprosyn TAB] 500 mg PO BID #20 tablet 01/08/18 Unknown Rx Cyclobenzaprine [Flexeril 10 MG 10 mg PO QHS PRN #20 tablet 01/23/18 Unknown Rx TAB] Acetaminophen/Codeine [Tylenol 1 tab PO Q6H PRN #14 tab 02/07/18 Unknown Rx /Codeine # 3 tab] Clindamycin [Clindamycin CAP] 300 mg PO Q8H 10 Days #30 cap 02/07/18 Unknown Rx Ondansetron [Zofran Odt] 4 mg PO Q8HR PRN #14 tab.rapdis 02/17/18 Unknown Rx traMADol [Ultram 50 MG tab] 50 mg PO Q4HR PRN #14 tablet 02/17/18 Unknown Rx Tramadol HCl [Ultram] 50 mg PO QAM PRN #12 tablet 04/11/18 Unknown Rx Dicyclomine [Bentyl] 20 mg PO QID PRN #20 tablet 05/27/18 Unknown Rx Ondansetron [Zofran Odt] 4 mg PO Q8HR PRN #20 tab.rapdis 05/27/18 Unknown Rx ED Physical Exam - General Limitations: No Limitations General appearance: alert, in no apparent distress - Head Head exam: Present: atraumatic, normocephalic - Eye Eye exam: Present: normal appearance - ENT ENT exam: Present: mucous membranes moist - Neck Neck exam: Present: normal inspection - Respiratory Respiratory exam: Present: normal lung sounds bilaterally. Absent: respiratory distress - Cardiovascular Cardiovascular Exam: Present: regular rate, normal rhythm - GI/Abdominal GI/Abdominal exam: Present: soft. Absent: distended, tenderness - Extremities Exam Extremities exam: Present: normal inspection - Neurological Exam Neurological exam: Present: alert, oriented X3 - Psychiatric Psychiatric exam: Present: normal affect, normal mood - Skin Skin exam: Present: warm, dry, intact, normal color. Absent: rash ED Course - Reevaluation(s) Reevaluation #1: 05/27/18 18:00 Patient reports hx of CKD. BUN and creatnine stable compared to last visit in March 2018. States PCP has already referred her to a dsp engineer. ED Medical Decision Making - Lab Data Result diagrams: 05/27/18 15:00 05/27/18 15:00 ED Disposition Clinical Impression: Gastroenteritis, Hyperglycemia Disposition: DC-01 TO HOME OR SELFCARE Is pt being admited?: No Condition: Stable Instructions: Gastroenteritis (ED), Diabetic Hyperglycemia (ED) Prescriptions: Dicyclomine [Bentyl] 20 mg PO QID PRN #20 tablet PRN Reason: abdominal pain Ondansetron [Zofran Odt] 4 mg PO Q8HR PRN #20 tab.rapdis PRN Reason: Vomiting Referrals: PRIMARY CARE, [Referring] - 3-5 Days <KELLIE MEYER - Last Filed: 05/27/18 23:57> ED Review of Systems ROS: Stated complaint: HIGH SUGAR/SOB Other details as noted in HPI ED Course Vital Signs 05/27/18 05/27/18 05/27/18 14:51 18:28 19:45 Temperature 97.9 F 98.1 F Pulse Rate 75 84 80 Respiratory 16 15 18 Rate Blood Pressure 121/73 Blood Pressure 123/96 166/90 [Left] O2 Sat by Pulse 99 98 99 Oximetry 05/27/18 05/27/18 21:21 23:12 Temperature Pulse Rate 86 83 Respiratory 18 18 Rate Blood Pressure Blood Pressure 142/78 133/75 [Left] O2 Sat by Pulse 99 96 Oximetry - Reevaluation(s) Reevaluation #2: 05/27/18 23:57 pt feeling at her with additional meds. Repeat glucose is improved. CT unremarkable. Patient be discharged with meds prescribed by Dr. Mora ED Medical Decision Making - Lab Data Result diagrams: 05/27/18 15:00 05/27/18 15:00 - Radiology Data Radiology results: report reviewed PROCEDURE: CT ABDOMEN PELVIS WO CON TECHNIQUE: Computerized axial tomography of the abdomen and pelvis was performed without intravenous contrast. This study is performed without intravascular contrast material and its sensitivity for abdominal and pelvic pathology, including neoplasms, inflammati on, abscess, free fluid, thrombosis, arterial dissection and infarction, is reduced compared with a contrast enhanced study. CT DOSE LENGTH PRODUCT: mGycm HISTORY: n,v, abd pain COMPARISONS: 06/13/2017 . FINDINGS: Liver, spleen, pancreas and adrenal glands are within normal limits. Left kidney is unremarkable. Right kidney demonstrates a septated cystic lesion measuring 8.0 cm x 4 x 7.8 cm demonstrating irregular thickening of the medial wall and irregular areas of calcification falguni sing from the anterior aspect. Urinary bladder is partially filled with normal outlines. Aorta is of normal caliber. There is no free fluid or free air. Gallbladder is unremarkable. Small bowel loops are within normal limits. Appendix is not definitively visualized. There are no inflammatory changes in the right lower quadrant. Vertebral height is normal. IMPRESSION: A complex cystic lesion that is within the anterior right kidney is stable and unchanged since the prior study. Otherwise unremarkable study Critical Care Time: No Critical care attestation.: If time is entered above; I have spent that time in minutes in the direct care of this critically ill patient, excluding procedure time.
[2018-05-27] MEDS ORDERED: HumuLIN R IV ONE ×5 (17:55→22:17)
[2018-05-27] MEDS ORDERED: TYLENOL PO ONE (17:58)
--- NOTE | 2018-05-27 18:17 | XRay Report ---
PROCEDURE: XR CHEST ROUTINE 2V TECHNIQUE: PA and lateral chest HISTORY: Chest Pain COMPARISONS: February 17, 2018 FINDINGS: Cardiomediastinal silhouette within normal limits. There is no evidence of airspace consolidation or pleural effusions. The pulmonary vasculature is within normal limits. IMPRESSION: No radiographic evidence of acute disease.. This document is electronically signed by Geoffrey Novoa MD., May 27 2018 06:14:57 PM ET
[2018-05-27 18:48] LABS: Bacteria,Urine 2+ /HPF (Negative); Bilirubin,Urine NEG (Negative); Blood,Urine NEG (Negative); Color,Urine Yellow (Yellow); Protein,Urine <15 mg/dL mg/dL (Negative); Urobilinogen,Urine < 2.0 mg/dL (<2.0)
[2018-05-27] MEDS ORDERED: ZOFRAN ONE (20:46)
[2018-05-27] MEDS ORDERED: REGLAN IV ONE (20:48)
[2018-05-27] MEDS ORDERED: BENADRYL IV ONE (20:48)
--- NOTE | 2018-05-27 23:06 | Cat Scan Report ---
PROCEDURE: CT ABDOMEN PELVIS WO CON TECHNIQUE: Computerized axial tomography of the abdomen and pelvis was performed without intravenous contrast. This study is performed without intravascular contrast material and its sensitivity for ab dominal and pelvic pathology, including neoplasms, inflammation, abscess, free fluid, thrombosis, art erial dissection and infarction, is reduced compared with a contrast enhanced study. CT DOSE LENGTH PRODUCT: mGycm HISTORY: n,v, abd pain COMPARISONS: 06/13/2017 . FINDINGS: Liver, spleen, pancreas and adrenal glands are within normal limits. Left kidney is unremarkable. Rig ht kidney demonstrates a septated cystic lesion measuring 8.0 cm x 4 x 7.8 cm demonstrating irregular thickening of the medial wall and irregular areas of calcification arising from the anterior aspect. Urinary bladder is partially filled with normal outlines. Aorta is of normal caliber. There is no fr ee fluid or free air. Gallbladder is unremarkable. Small bowel loops are within normal limits. Append ix is not definitively visualized. There are no inflammatory changes in the right lower quadrant. Bharti tebral height is normal. IMPRESSION: A complex cystic lesion that is within the anterior right kidney is stable and unchanged since the pr ior study. Otherwise unremarkable study This document is electronically signed by Raman Gatica MD., May 27 2018 11:03:58 PM ET
[2018-05-28 00:35] VITALS: BP 130/82
== END 2018-05-28 00:34 | disposition home or self-care (01) ==
LOC: ED 14:41
DX: K52.9 Noninfective gastroenteritis and colitis, unspecified (principal); E11.65 Type 2 diabetes mellitus with hyperglycemia; I12.9 Hypertensive chronic kidney disease with stage 1 through stage 4 chronic kidney disease, or unspecified chronic kidney disease; E11.22 Type 2 diabetes mellitus with diabetic chronic kidney disease; N18.9 Chronic kidney disease, unspecified; G43.909 Migraine, unspecified, not intractable, without status migrainosus; E66.9 Obesity, unspecified; Z68.41 Body mass index [BMI] 40.0-44.9, adult; Z90.49 Acquired absence of other specified parts of digestive tract; Z91.040 Latex allergy status; Z91.013 Allergy to seafood; Z79.4 Long term (current) use of insulin
CPT/HCPCS: 36415; 71046; 74176; 80048; 80076; 81001; 82805; 82962; 83690; 84484; 85025; 85610; 85730; 93005; 93010; 96361; 96374; 96375; 96376; 99285; J1200; J2405; J2765; J7030; J1815

== ENCOUNTER 2018-09-24 13:22 | Emergency (ER) | payer MEDICAID ==
--- NOTE | 2018-09-24 13:53 | Emergency Department Report ---
Blank Doc - Documentation Documentation: 53 y o male presents with feeling weak x 2 days states she has been having episodic vomiting denies cp/sob or any other symptoms labs acc
[2018-09-24] MEDS ORDERED: NACL 0.9% 1000 ML 1,000 ML IV ONE ×3 (14:38→16:00)
[2018-09-24] MEDS ORDERED: ZOFRAN IV ONE (14:38)
[2018-09-24] MEDS ORDERED: PEPCID IV ONE (14:38)
[2018-09-24 14:58] LABS: Basophils % (Auto) 0.5 % (0.0-1.8); Eosinophils # (Auto) 0.2 K/mm3 (0.0-0.4); Hematocrit 32.8 % (30.3-42.9); Lymphocytes % (Auto) 29.8 % (13.4-35.0); Mean Corpuscular HGB Conc 34 % (30-34); Mean Corpuscular Volume 80 fl (79-97); Monocytes # (Auto) 0.4 K/mm3 (0.0-0.8); Monocytes % (Auto) 6.3 % (0.0-7.3); Platelet Count 250 K/mm3 (140-440); Red Blood Count 4.11 M/mm3 (3.65-5.03)
[2018-09-24 15:04] LABS: Calcium 9.5 mg/dL (8.4-10.2)
--- NOTE | 2018-09-24 16:49 | Emergency Department Report ---
ED General Adult HPI - General Chief complaint: Nausea/Vomiting/Diarrhea Stated complaint: BP HIGH Time Seen by Provider: 09/24/18 13:51 Source: patient Mode of arrival: Wheelchair Limitations: No Limitations, Physical Limitation - History of Present Illness Initial comments: Patient is a 53-year-old female who states that for the past 2 days she's been very weak in fatigued at work. 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 Patient states she was sweating and felt as though she was going to pass out today. Patient has some nausea and vomiting as well. Patient denies any chest pain shortness of breath fevers chills. - Related Data Home Medications Medication Instructions Recorded Confirmed Last Taken metFORMIN [Glucophage] 500 mg PO BID 12/13/12 09/28/16 09/27/16 Insulin Lispro [Humalog] 50 unit SQ BID 09/28/16 09/28/16 09/27/16 Losartan/Hydrochlorothiazide 1 each PO QDAY 09/28/16 09/28/16 09/27/16 [Losartan-Hctz 50-12.5 mg Tab] Previous Rx's Medication Instructions Recorded Last Taken Type Pantoprazole [Protonix] 40 mg PO QDAY #30 tablet 09/30/16 Unknown Rx Sucralfate [Carafate] 1 gm PO Q6HR 30 Days oral.liqd 09/30/16 Unknown Rx Cipro/Dexameth 0.3/0.1% [Ciprodex 4 drops OT BID #1 bottle 12/24/16 Unknown Rx OTIC] Promethazine [Phenergan SUPPOS] 50 mg NC Q6H PRN #20 supp.rect 06/14/17 Unknown Rx Naproxen [Naprosyn TAB] 500 mg PO BID #20 tablet 01/08/18 Unknown Rx Cyclobenzaprine [Flexeril 10 MG 10 mg PO QHS PRN #20 tablet 01/23/18 Unknown Rx TAB] Acetaminophen/Codeine [Tylenol 1 tab PO Q6H PRN #14 tab 02/07/18 Unknown Rx /Codeine # 3 tab] Clindamycin [Clindamycin CAP] 300 mg PO Q8H 10 Days #30 cap 02/07/18 Unknown Rx Ondansetron [Zofran Odt] 4 mg PO Q8HR PRN #14 tab.rapdis 02/17/18 Unknown Rx traMADol [Ultram 50 MG tab] 50 mg PO Q4HR PRN #14 tablet 02/17/18 Unknown Rx Tramadol HCl [Ultram] 50 mg PO QAM PRN #12 tablet 04/11/18 Unknown Rx Dicyclomine [Bentyl] 20 mg PO QID PRN #20 tablet 05/27/18 Unknown Rx Ondansetron [Zofran Odt] 4 mg PO Q8HR PRN #20 tab.rapdis 05/27/18 Unknown Rx Allergies Allergy/AdvReac Type Severity Reaction Status Date / Time Latex, Natural Rubber Allergy Itching Verified 04/11/18 10:35 shellfish derived Allergy Rash Verified 04/11/18 10:35 ED Review of Systems ROS: Stated complaint: BP HIGH Other details as noted in HPI Comment: All other systems reviewed and negative ED Past Medical Hx - Past Medical History Previous Medical History?: Yes Hx Hypertension: Yes Hx Congestive Heart Failure: No Hx Diabetes: Yes Hx Renal Disease: No Hx Sickle Cell Disease: No Hx Headaches / Migraines: Yes Hx Asthma: No Hx COPD: No Additional medical history: Glaucoma. Cataracts. Migraines. obesity - Surgical History Past Surgical History?: Yes Hx Appendectomy: Yes - Social History Smoking Status: Never Smoker Substance Use Type: None - Medications Home Medications: Home Medications Medication Instructions Recorded Confirmed Last Taken Type metFORMIN [Glucophage] 500 mg PO BID 12/13/12 09/28/16 09/27/16 History Insulin Lispro [Humalog] 50 unit SQ BID 09/28/16 09/28/16 09/27/16 History Losartan/Hydrochlorothiazide 1 each PO QDAY 09/28/16 09/28/16 09/27/16 History [Losartan-Hctz 50-12.5 mg Tab] Pantoprazole [Protonix] 40 mg PO QDAY #30 tablet 09/30/16 Unknown Rx Sucralfate [Carafate] 1 gm PO Q6HR 30 Days oral.liqd 09/30/16 Unknown Rx Cipro/Dexameth 0.3/0.1% [Ciprodex 4 drops OT BID #1 bottle 12/24/16 Unknown Rx OTIC] Promethazine [Phenergan SUPPOS] 50 mg NC Q6H PRN #20 supp.rect 06/14/17 Unknown Rx Naproxen [Naprosyn TAB] 500 mg PO BID #20 tablet 01/08/18 Unknown Rx Cyclobenzaprine [Flexeril 10 MG 10 mg PO QHS PRN #20 tablet 01/23/18 Unknown Rx TAB] Acetaminophen/Codeine [Tylenol 1 tab PO Q6H PRN #14 tab 02/07/18 Unknown Rx /Codeine # 3 tab] Clindamycin [Clindamycin CAP] 300 mg PO Q8H 10 Days #30 cap 02/07/18 Unknown Rx Ondansetron [Zofran Odt] 4 mg PO Q8HR PRN #14 tab.rapdis 02/17/18 Unknown Rx traMADol [Ultram 50 MG tab] 50 mg PO Q4HR PRN #14 tablet 02/17/18 Unknown Rx Tramadol HCl [Ultram] 50 mg PO QAM PRN #12 tablet 04/11/18 Unknown Rx Dicyclomine [Bentyl] 20 mg PO QID PRN #20 tablet 05/27/18 Unknown Rx Ondansetron [Zofran Odt] 4 mg PO Q8HR PRN #20 tab.rapdis 05/27/18 Unknown Rx ED Physical Exam - General Limitations: No Limitations, Physical Limitation General appearance: alert, in no apparent distress - Head Head exam: Present: atraumatic, normocephalic - Eye Eye exam: Present: normal appearance - ENT ENT exam: Present: mucous membranes moist - Neck Neck exam: Present: normal inspection - Respiratory Respiratory exam: Present: normal lung sounds bilaterally. Absent: respiratory distress, wheezes, rales, rhonchi - Cardiovascular Cardiovascular Exam: Present: regular rate, normal rhythm. Absent: systolic murmur, diastolic murmur, rubs, gallop - GI/Abdominal GI/Abdominal exam: Present: soft, normal bowel sounds. Absent: distended, tenderness, guarding, rebound - Extremities Exam Extremities exam: Present: normal inspection - Back Exam Back exam: Present: normal inspection - Neurological Exam Neurological exam: Present: alert, oriented X3 - Psychiatric Psychiatric exam: Present: normal affect, normal mood - Skin Skin exam: Present: warm, dry, intact, normal color. Absent: rash ED Course Vital Signs 09/24/18 13:51 Temperature 97.8 F Pulse Rate 73 Respiratory 18 Rate Blood Pressure 121/73 O2 Sat by Pulse 99 Oximetry ED Medical Decision Making - Lab Data Result diagrams: 09/24/18 14:35 09/24/18 14:35 Lab Results 09/24/18 09/24/18 Range/Units 14:35 14:35 WBC 6.6 (4.5-11.0) K/mm3 RBC 4.11 (3.65-5.03) M/mm3 Hgb 11.0 (10.1-14.3) gm/dl Hct 32.8 (30.3-42.9) % MCV 80 (79-97) fl MCH 27 L (28-32) pg MCHC 34 (30-34) % RDW 13.0 L (13.2-15.2) % Plt Count 250 (140-440) K/mm3 Lymph % (Auto) 29.8 (13.4-35.0) % [place] % (Auto) 6.3 (0.0-7.3) % Eos % (Auto) 3.0 (0.0-4.3) % Baso % (Auto) 0.5 (0.0-1.8) % Lymph # 2.0 (1.2-5.4) K/mm3 [place] # 0.4 (0.0-0.8) K/mm3 Eos # 0.2 (0.0-0.4) K/mm3 Baso # 0.0 (0.0-0.1) K/mm3 Seg Neutrophils % 60.4 (40.0-70.0) % Seg Neutrophils # 4.0 (1.8-7.7) K/mm3 Sodium 135 L (137-145) mmol/L Potassium 5.5 H (3.6-5.0) mmol/L Chloride 101.5 (98-107) mmol/L Carbon Dioxide 22 (22-30) mmol/L Anion Gap 17 mmol/L BUN 57 H (7-17) mg/dL Creatinine 1.6 H (0.7-1.2) mg/dL Estimated GFR 41 ml/min BUN/Creatinine Ratio 36 % Glucose 202 H (65-100) mg/dL Calcium 9.5 (8.4-10.2) mg/dL - Medical Decision Making Patient's BUN creatinine was abnormal for her. The patient has a chronic elevation of her creatinine which was within her limits of her baseline however her BUN was significantly elevated. Patient does have evidence of a prerenal. Patient given several liters of normal saline. Patient states she is feeling improved. Patient has seen a documentation supervisor in the past but has not seen them in quite some time. Patient given referral to nephrology and the patient will also be discharged home. Critical care attestation.: If time is entered above; I have spent that time in minutes in the direct care of this critically ill patient, excluding procedure time. ED Disposition Clinical Impression: Acute renal insufficiency, Moderate dehydration Heat exhaustion Qualifiers: Encounter type: initial encounter Qualified Code(s): T67.5XXA - Heat exhaustion, unspecified, initial encounter Disposition: DC-01 TO HOME OR SELFCARE Is pt being admited?: No Does the pt Need Aspirin: No Condition: Stable Instructions: Dehydration (ED) Referrals: ADORE GUALLPA MD [Staff Physician] - 3-5 Days Time of Disposition: 16:48
[2018-09-24 17:06] VITALS: BP 127/50
== END 2018-09-24 17:24 | disposition home or self-care (01) ==
LOC: ED 13:22
DX: T67.5XXA Heat exhaustion, unspecified, initial encounter (principal); E86.0 Dehydration; N28.9 Disorder of kidney and ureter, unspecified; I10 Essential (primary) hypertension; E11.9 Type 2 diabetes mellitus without complications; G43.909 Migraine, unspecified, not intractable, without status migrainosus; Z98.890 Other specified postprocedural states; Z90.49 Acquired absence of other specified parts of digestive tract; Z79.899 Other long term (current) drug therapy; Z91.013 Allergy to seafood; Z91.09 Other allergy status, other than to drugs and biological substances; Z91.040 Latex allergy status
CPT/HCPCS: 36415; 80048; 85025; 96361; 96374; 96375; 99283; J2405; J7030

== ENCOUNTER 2018-11-29 15:24 | Emergency (ER) | payer MEDICAID ==
[2018-11-29] MEDS ORDERED: ZOFRAN ODT PO ONE (15:34)
--- NOTE | 2018-11-29 15:35 | Event Note ---
ED Screening Note Date of service: 11/29/18 Time: 15:32 ED Screening Note: This is a 53 y.o. F. that presents to the ER with headache and vomiting since this morning. PMH of HTN, migraines, & DM2 Reports headache worse than usual. This initial assessment/diagnostic orders/clinical plan/treatment(s) is/are subject to change based on patients health status, clinical progression and re- assessment by fellow clinical providers in the ED. Further treatment and workup at subsequent clinical providers discretion. Patient/guardian urged not to elope from the ED as their condition may be serious if not clinically assessed and managed. Initial orders include: CT of head Given zofran
[2018-11-29] MEDS ORDERED: ZOFRAN ODT ONE (15:37)
--- NOTE | 2018-11-29 17:04 | Cat Scan Report ---
CT head without contrast INDICATION : migraine. TECHNIQUE: Axial imaging performed from the skull apex through the skull base without the use of con trast. All CT scans at this location are performed using CT dose reduction for ALARA by means of aut omated exposure control. COMPARISON: CT head from 03/27/2018 FINDINGS: Parenchyma: No acute intracranial hemorrhage or parenchymal abnormality. There is mild enlargement o f the pituitary as may be seen with a macroadenoma. Ventricles: Ventricles are normal in size and appear symmetric. Soft tissues: Soft tissues including the orbits appear normal. Bones: No acute osseous abnormality. Sinuses: Sinuses and mastoid air cells are clear. IMPRESSION: 1. No acute abnormality. 2. Mild enlargement of the pituitary may be seen with a macroadenoma. Consider follow-up MRI brain wi th contrast for further evaluation. Signer Name: Mario Ayoub MD Signed: 11/29/2018 4:59 PM Workstation Name: [id number]
[2018-11-29] MEDS ORDERED: NACL 0.9% 1000 ML 1,000 ML IV ONE (17:31)
--- NOTE | 2018-11-29 17:33 | Event Note ---
ED Screening Note ED Screening Note: SEE CT SCAN FROM MAR 2018 PT HAS BEEN HERE SEVERAL TIMES SINCE PT STATES SHE KNOWS NOTHING ABOUT HER CT HEAD AND MASS SHE HAS PHOTOPHOBIA AND N/V TO MAIN This initial assessment/diagnostic orders/clinical plan/treatment(s) is/are subject to change based on patients health status, clinical progression and re- assessment by fellow clinical providers in the ED. Further treatment and workup at subsequent clinical providers discretion. Patient/guardian urged not to elope from the ED as their condition may be serious if not clinically assessed and managed. Initial orders include:
[2018-11-29] MEDS ORDERED: ZOFRAN IV ONE (18:44)
[2018-11-29] MEDS ORDERED: MORPHINE IV ONE (18:44)
[2018-11-29 18:51] LABS: Albumin 4.5 g/dL (3.9-5)
[2018-11-29 19:34] LABS: Hematocrit 36.9 % (30.3-42.9); Hemoglobin 11.5 gm/dl (10.1-14.3); Mean Corpuscular HGB Conc 31 % (30-34); Mean Corpuscular Volume 81 fl (79-97); Platelet Count 344 K/mm3 (140-440); Red Blood Count 4.54 M/mm3 (3.65-5.03); Red Cell Distribution Width 13.5 % (13.2-15.2)
[2018-11-29] MEDS ORDERED: KIONEX PO ONE (19:45)
[2018-11-29] MEDS ORDERED: DILAUDID IV ONE (19:46)
--- NOTE | 2018-11-29 19:52 | Emergency Department Report ---
HPI - General Chief Complaint: Headache Time Seen by Provider: 11/29/18 15:32 - HPI HPI: 53-year-old -[place] female presents to the emergency department with complaint of a generalized headache, nausea and vomiting that has been going on since about 5 AM this morning. She has not taken anything for her symptoms prior to presentation. The patient has a history of a pituitary adenoma and was seen here back in March of this year on a CT scan of the head without contrast. She had some similar symptoms at that time and previously had told [facility] ER physician that she had a neurosurgeon at [place] who was following the adenoma and that she might end up having surgery. I asked the patient if she is still being followed by this neurosurgeon and she says no. She never had any surgery completed because "I am scared." She also has a past nuchal history of diabetes, migraine headaches, hypertension. Her Primary care physician is Dr. Gretel Witt. ED Past Medical Hx - Past Medical History Previous Medical History?: Yes Hx Hypertension: Yes Hx Congestive Heart Failure: No Hx Diabetes: Yes Hx Renal Disease: No Hx Sickle Cell Disease: No Hx Headaches / Migraines: Yes Hx Asthma: No Hx COPD: No Additional medical history: Glaucoma. Cataracts. Migraines. obesity - Surgical History Past Surgical History?: Yes Hx Appendectomy: Yes - Social History Smoking Status: Never Smoker Substance Use Type: None - Medications Home Medications: Home Medications Medication Instructions Recorded Confirmed Last Taken Type metFORMIN [Glucophage] 500 mg PO BID 12/13/12 11/30/18 11/29/18 History Ondansetron [Zofran Odt] 4 mg PO Q8HR PRN #20 tab.rapdis 05/27/18 11/30/18 Unknown Rx Insulin Regular, Human [HumuLIN R] 0 units SQ QHS 11/30/18 11/30/18 Unknown History amLODIPine [Norvasc] 10 mg PO DAILY 11/30/18 11/30/18 Unknown History ED Review of Systems ROS: Stated complaint: HEAD PAIN Other details as noted in HPI Comment: All other systems reviewed and negative Constitutional: denies: chills, fever Eyes: denies: eye pain, vision change ENT: denies: ear pain, throat pain Respiratory: denies: cough, shortness of breath Cardiovascular: denies: chest pain, palpitations Gastrointestinal: nausea, vomiting. denies: abdominal pain Genitourinary: denies: dysuria, discharge Musculoskeletal: denies: back pain, arthralgia Skin: denies: rash, lesions Neurological: headache. denies: weakness, numbness, paresthesias Physical Exam - Physical Exam Vital Signs: Vital Signs 11/29/18 11/29/18 15:32 19:03 Temperature 98.8 F Pulse Rate 74 75 Respiratory 16 18 Rate Blood Pressure 143/81 Blood Pressure 160/88 [Right] O2 Sat by Pulse 96 98 Oximetry Physical Exam: GENERAL: The patient is well-developed well-nourished. HENT: Normocephalic. Atraumatic. Patient has moist mucous membranes. EYES: Extraocular motions are intact. Pupils equal reactive to light bilaterally. No nystagmus. NECK: Supple. Trachea is midline. CHEST/LUNGS: Clear to auscultation. There is no respiratory distress noted. HEART/CARDIOVASCULAR: Regular. There is no tachycardia. There is no murmur. ABDOMEN: Abdomen is soft, nontender. Patient has normal bowel sounds. There is no abdominal distention. SKIN: Skin is warm and dry. NEURO: The patient is awake, alert, and oriented. The patient is cooperative. The patient has no focal neurologic deficits. Normal speech. Cranial nerves II through XII grossly intact. MUSCULOSKELETAL: There is no tenderness or deformity. There is no evidence of acute injury. ED Course Vital Signs 11/29/18 11/29/18 15:32 19:03 Temperature 98.8 F Pulse Rate 74 75 Respiratory 16 18 Rate Blood Pressure 143/81 Blood Pressure 160/88 [Right] O2 Sat by Pulse 96 98 Oximetry ED Medical Decision Making - Lab Data Result diagrams: 11/29/18 18:09 11/29/18 18:09 - Radiology Data Radiology results: report reviewed CT head without contrast INDICATION : migraine. TECHNIQUE: Axial imaging performed from the skull apex through the skull base without the use of contrast. All CT scans at this location are performed using CT dose reduction for ALARA by means of automated exposure control. COMPARISON: CT head from 03/27/2018 FINDINGS: Parenchyma: No acute intracranial hemorrhage or parenchymal abnormality. There is mild enlargement of the pituitary as may be seen with a macroadenoma. Ventricles: Ventricles are normal in size and appear symmetric. Soft tissues: Soft tissues including the orbits appear normal. Bones: No acute osseous abnormality. Sinuses: Sinuses and mastoid air cells are clear. IMPRESSION: 1. No acute abnormality. 2. Mild enlargement of the pituitary may be seen with a macroadenoma. Consider follow-up MRI brain with contrast for further evaluation. - Medical Decision Making This patient presents with the complaint of a headache, nausea and vomiting. She has a known history of a pituitary adenoma. She previously was being seen for this at [facility] and was supposedly scheduled for some type of surgery at the beginning of the year but the patient says that she did not have the surgery done and does not follow with the neurosurgeon because "I was scared." On examination she does not appear to have any focal, motor or sensory deficits in her cranial nerves are intact. The CT shows the same pituitary adenoma in the enlargement is described by radiology as mild. There does not appear to be any surrounding edema or any signs of any acute bleeding or ischemia or any other acute process. The patient does present with the nausea and vomiting. She was given some Zofran and IV fluid. She was given pain medication for headache. She was reevaluated multiple times over multiple hours and is improved. She was seen ambulatory and both appears and feels stable. Passed an oral challenge. Patient to be discharged home with nausea medication and referrals for primary care for follow-up. Labs do show a very mild leukocytosis and some renal insufficiency, which is actually improved from previous. She was instructed to return to the emergency Department with any worsening of her symptoms or any acute distress. Critical Care Time: No Critical care attestation.: If time is entered above; I have spent that time in minutes in the direct care of this critically ill patient, excluding procedure time. ED Disposition Clinical Impression: Pituitary adenoma CKD (chronic kidney disease) Qualifiers: Chronic kidney disease stage: stage 2 (mild) Qualified Code(s): N18.2 - Chronic kidney disease, stage 2 (mild) Hypertension Qualifiers: Hypertension type: essential hypertension Qualified Code(s): I10 - Essential (primary) hypertension Headache Qualifiers: Headache type: unspecified Headache chronicity pattern: unspecified pattern Intractability: not intractable Qualified Code(s): R51 - Headache Nausea & vomiting Qualifiers: Vomiting type: unspecified Vomiting Intractability: non-intractable Qualified Code(s): R11.2 - Nausea with vomiting, unspecified Disposition: DC-01 TO HOME OR SELFCARE Is pt being admited?: No Condition: Stable Instructions: Migraine Headache (ED), Acute Headache (ED), Acute Nausea and Vomiting (ED), Pituitary Adenoma (ED), Hypertension (ED) Additional Instructions: Please follow-up with your primary care physician in the next few days. I am giving you a referral for a local director of medical staff services, Dr. Haro, to follow-up regarding your decreased kidney function. Please follow-up with your neurosurgeon regarding the pituitary tumor. Try to increase your oral rehydration. Return to the emergency Department with any worsening of your symptoms or any acute distress. Referrals: GRETEL AGUIRRE [Other] - 2-3 Days Forms: Work/School Release Form(ED) Time of Disposition: 19:52
[2018-11-29 21:36] VITALS: BP 158/88
== END 2018-11-29 21:36 | disposition home or self-care (01) ==
LOC: ED 15:24
DX: E11.22 Type 2 diabetes mellitus with diabetic chronic kidney disease (principal); I12.9 Hypertensive chronic kidney disease with stage 1 through stage 4 chronic kidney disease, or unspecified chronic kidney disease; N18.2 Chronic kidney disease, stage 2 (mild); Z79.4 Long term (current) use of insulin; G43.909 Migraine, unspecified, not intractable, without status migrainosus; Z90.49 Acquired absence of other specified parts of digestive tract; Z98.890 Other specified postprocedural states; Z91.040 Latex allergy status; Z91.09 Other allergy status, other than to drugs and biological substances; Z91.013 Allergy to seafood
CPT/HCPCS: 36415; 70450; 80053; 84443; 85027; 96361; 96374; 96375; 99284; J1170; J2270; J2405; J7030; Q0162

== ENCOUNTER 2018-11-30 12:46 | Inpatient (IN) | payer MEDICAID ==
--- NOTE | 2018-11-30 12:55 | Event Note ---
ED Screening Note Date of service: 11/30/18 Time: 12:52 ED Screening Note: This is a 53 y.o. F. that presents to the ER with headache, nausea, and vomiting for 2 days. Patient states she was seen here yesterday and prescribed medication but unable to get them filled. This initial assessment/diagnostic orders/clinical plan/treatment(s) is/are subject to change based on patients health status, clinical progression and re- assessment by fellow clinical providers in the ED. Further treatment and workup at subsequent clinical providers discretion. Patient/guardian urged not to elope from the ED as their condition may be serious if not clinically assessed and managed. Initial orders include:
[2018-11-30] MEDS ORDERED: NACL 0.9% 1000 ML 1,000 ML IV ONE ×2 (13:54→15:56)
[2018-11-30] MEDS ORDERED: ZOFRAN IV ONE ×2 (13:54→15:56)
--- NOTE | 2018-11-30 14:00 | Emergency Department Report ---
ED General Adult HPI - General Chief complaint: Nausea/Vomiting/Diarrhea Stated complaint: N/HEADACHE Time Seen by Provider: 11/30/18 12:50 Source: patient Mode of arrival: Wheelchair Limitations: No Limitations - History of Present Illness Initial comments: Patient is a 53-year-old female who presents emergency room with complaints of feeling like she is "dehydrated." She states last night she began having nausea and vomiting. States she has been vomiting all day long. She was evaluated in the emergency room yesterday for headache and nausea vomiting and had a CT head which showed her chronic pituitary macroadenoma otherwise normal, and her blood work showed CKD which was improved from prior labwork. States her headache has improved from yesterday, but still experiences discomfort in her head when vomiting. She denies any diarrhea, melena, hematochezia, fever, abdominal pain. States she has not had a bowel movement approximately 2 days. Patient states she has a past medical history of HTN, DM, pituitary adenoma. past surgical history of appendectomy. She denies any allergies to medications. - Related Data Home Medications Medication Instructions Recorded Confirmed Last Taken metFORMIN [Glucophage] 500 mg PO BID 12/13/12 11/30/18 11/29/18 Insulin Regular, Human [HumuLIN R] 0 units SQ QHS 11/30/18 11/30/18 Unknown amLODIPine [Norvasc] 10 mg PO DAILY 11/30/18 11/30/18 Unknown Previous Rx's Medication Instructions Recorded Last Taken Type Ondansetron [Zofran Odt] 4 mg PO Q8HR PRN #20 tab.rapdis 05/27/18 Unknown Rx Allergies Allergy/AdvReac Type Severity Reaction Status Date / Time Latex, Natural Rubber Allergy Itching Verified 11/30/18 12:53 shellfish derived Allergy Rash Verified 11/30/18 12:53 ED Review of Systems ROS: Stated complaint: N/HEADACHE Other details as noted in HPI Comment: All other systems reviewed and negative ED Past Medical Hx - Past Medical History Hx Hypertension: Yes Hx Congestive Heart Failure: No Hx Diabetes: Yes Hx Renal Disease: No Hx Sickle Cell Disease: No Hx Headaches / Migraines: Yes Hx Asthma: No Hx COPD: No Additional medical history: Glaucoma. Cataracts. Migraines. obesity - Surgical History Hx Appendectomy: Yes - Social History Smoking Status: Never Smoker Substance Use Type: None - Medications Home Medications: Home Medications Medication Instructions Recorded Confirmed Last Taken Type metFORMIN [Glucophage] 500 mg PO BID 12/13/12 11/30/18 11/29/18 History Ondansetron [Zofran Odt] 4 mg PO Q8HR PRN #20 tab.rapdis 05/27/18 11/30/18 Unknown Rx Insulin Regular, Human [HumuLIN R] 0 units SQ QHS 11/30/18 11/30/18 Unknown History amLODIPine [Norvasc] 10 mg PO DAILY 11/30/18 11/30/18 Unknown History ED Physical Exam - General Limitations: No Limitations General appearance: alert, other (actively vomiting) - Head Head exam: Present: atraumatic, normocephalic - Eye Eye exam: Present: normal appearance - ENT ENT exam: Present: mucous membranes dry - Respiratory Respiratory exam: Present: normal lung sounds bilaterally. Absent: respiratory distress, wheezes, rales, rhonchi, stridor, chest wall tenderness, accessory muscle use, decreased breath sounds, prolonged expiratory - Cardiovascular Cardiovascular Exam: Present: regular rate, normal rhythm, normal heart sounds. Absent: systolic murmur, diastolic murmur, rubs, gallop - GI/Abdominal GI/Abdominal exam: Present: soft, normal bowel sounds. Absent: distended, tenderness, guarding, rebound, rigid - Neurological Exam Neurological exam: Present: alert, oriented X3 - Psychiatric Psychiatric exam: Present: normal affect, normal mood - Skin Skin exam: Present: warm, dry, intact ED Course Vital Signs 11/30/18 11/30/18 11/30/18 12:53 18:08 21:50 Temperature 98.8 F 98.7 F Pulse Rate 104 H 110 H Respiratory 16 18 Rate Blood Pressure 158/85 Blood Pressure 166/84 [Right] O2 Sat by Pulse 99 99 98 Oximetry 11/30/18 21:57 Temperature 98.3 F Pulse Rate 106 H Respiratory 16 Rate Blood Pressure 186/89 Blood Pressure [Right] O2 Sat by Pulse 98 Oximetry - Reevaluation(s) Reevaluation #1: 11/30/18 15:50 pt continues to have N/V will give another dose of zofran and more fluids and discuss with the hospitalist - Consultations Consultation #1: 11/30/18 16:[address] Perry, hospitalist regarding pt and he will evaluate pt in the ED Consultation #2: 11/30/18 17:26 discussed venous Ph with Dr. Perry, he will accept and resume care of pt and admit to hospital, asked for me to write bridge orders ED Medical Decision Making - Lab Data Result diagrams: 12/02/18 06:03 12/02/18 06:03 Lab Results 11/30/18 11/30/18 11/30/18 Range/Units 16:15 Unknown Unknown WBC 17.6 H (4.5-11.0) K/mm3 RBC 4.51 (3.65-5.03) M/mm3 Hgb 11.8 (10.1-14.3) gm/dl Hct 36.4 (30.3-42.9) % MCV 81 (79-97) fl MCH 26 L (28-32) pg MCHC 33 (30-34) % RDW 13.8 (13.2-15.2) % Plt Count 377 (140-440) K/mm3 Lymph % (Auto) 7.5 L (13.4-35.0) % Robertson % (Auto) 4.6 (0.0-7.3) % Eos % (Auto) 0.0 (0.0-4.3) % Baso % (Auto) 0.4 (0.0-1.8) % Lymph # 1.3 (1.2-5.4) K/mm3 Robertson # 0.8 (0.0-0.8) K/mm3 Eos # 0.0 (0.0-0.4) K/mm3 Baso # 0.1 (0.0-0.1) K/mm3 Seg Neutrophils % 87.5 H (40.0-70.0) % Seg Neutrophils # 15.4 H (1.8-7.7) K/mm3 PT (12.2-14.9) Sec. INR (0.87-1.13) APTT (24.2-36.6) Sec. VBG pH 7.335 (7.320-7.420) Sodium 143 (137-145) mmol/L Potassium 4.4 (3.6-5.0) mmol/L Chloride 100.4 (98-107) mmol/L Carbon Dioxide 24 (22-30) mmol/L Anion Gap 23 mmol/L BUN 28 H (7-17) mg/dL Creatinine 1.3 H (0.7-1.2) mg/dL Estimated GFR 52 ml/min BUN/Creatinine Ratio 22 % Glucose 365 H (65-100) mg/dL Calcium 10.1 (8.4-10.2) mg/dL Total Bilirubin 0.40 (0.1-1.2) mg/dL AST 12 (5-40) units/L ALT 5 L (7-56) units/L Alkaline Phosphatase 85 (35-129) units/L Total Protein 8.8 H (6.3-8.2) g/dL Albumin 4.4 (3.9-5) g/dL Albumin/Globulin Ratio 1.0 % Lipase 9 L (13-60) units/L / Range/Units Unknown WBC (4.5-11.0) K/mm3 RBC (3.65-5.03) M/mm3 Hgb (10.1-14.3) gm/dl Hct (30.3-42.9) % MCV (79-97) fl MCH (28-32) pg MCHC (30-34) % RDW (13.2-15.2) % Plt Count (140-440) K/mm3 Lymph % (Auto) (13.4-35.0) % Robertson % (Auto) (0.0-7.3) % Eos % (Auto) (0.0-4.3) % Baso % (Auto) (0.0-1.8) % Lymph # (1.2-5.4) K/mm3 Robertson # (0.0-0.8) K/mm3 Eos # (0.0-0.4) K/mm3 Baso # (0.0-0.1) K/mm3 Seg Neutrophils % (40.0-70.0) % Seg Neutrophils # (1.8-7.7) K/mm3 PT 11.4 L (12.2-14.9) Sec. INR 0.85 L (0.87-1.13) APTT 24.1 L (24.2-36.6) Sec. VBG pH (7.320-7.420) Sodium (137-145) mmol/L Potassium (3.6-5.0) mmol/L Chloride (98-107) mmol/L Carbon Dioxide (22-30) mmol/L Anion Gap mmol/L BUN (7-17) mg/dL Creatinine (0.7-1.2) mg/dL Estimated GFR ml/min BUN/Creatinine Ratio % Glucose (65-100) mg/dL Calcium (8.4-10.2) mg/dL Total Bilirubin (0.1-1.2) mg/dL AST (5-40) units/L ALT (7-56) units/L Alkaline Phosphatase (35-129) units/L Total Protein (6.3-8.2) g/dL Albumin (3.9-5) g/dL Albumin/Globulin Ratio % Lipase (13-60) units/L - Medical Decision Making Patient is a 53-year-old female who presents emergency room with complaints of feeling like she is "dehydrated." She states last night she began having nausea and vomiting. States she has been vomiting all day long. She was evaluated in the emergency room yesterday for headache and nausea vomiting and had a CT head which showed her chronic pituitary macroadenoma otherwise normal, and her blood work showed CKD which was improved from prior labwork. States her headache has improved from yesterday, but still experiences discomfort in her head when vomiting. She denies any diarrhea, melena, hematochezia, fever, abdominal pain. States she has not had a bowel movement approximately 2 days. Patient states she has a past medical history of HTN, DM, pituitary adenoma. past surgical history of appendectomy. She denies any allergies to medications. labs with leukocytosis, hyperglycemia, stable kidney function. venous pH is normal. pt given 1L of fluids and given zofran twice and continued to have n/v. XR abd with no acute process. Ct abd pelvis with no acute process. discussed case with Dr. Perry, hospitalist who will accept and resume care of pt and admit pt to the hospital. Critical care attestation.: If time is entered above; I have spent that time in minutes in the direct care of this critically ill patient, excluding procedure time. ED Disposition Clinical Impression: Hyperglycemia Intractable nausea and vomiting Qualifiers: Vomiting type: unspecified Qualified Code(s): R11.2 - Nausea with vomiting, unspecified CKD (chronic kidney disease) Qualifiers: Chronic kidney disease stage: stage 2 (mild) Qualified Code(s): N18.2 - Chronic kidney disease, stage 2 (mild) Leukocytosis Qualifiers: Leukocytosis type: unspecified Qualified Code(s): D72.829 - Elevated white blood cell count, unspecified Disposition: DC-09 OP ADMIT IP TO THIS HOSP Is pt being admited?: Yes Does the pt Need Aspirin: No Condition: Stable
[2018-11-30 14:22] LABS: Basophils # (Auto) 0.1 K/mm3 (0.0-0.1); Basophils % (Auto) 0.4 % (0.0-1.8); Hematocrit 36.4 % (30.3-42.9); Hemoglobin 11.8 gm/dl (10.1-14.3); Lymphocytes # (Auto) 1.3 K/mm3 (1.2-5.4); Lymphocytes % (Auto) 7.5 % (13.4-35.0); Mean Corpuscular HGB Conc 33 % (30-34); Mean Corpuscular Volume 81 fl (79-97); Monocytes # (Auto) 0.8 K/mm3 (0.0-0.8); Monocytes % (Auto) 4.6 % (0.0-7.3); Platelet Count 377 K/mm3 (140-440); Red Blood Count 4.51 M/mm3 (3.65-5.03); Red Cell Distribution Width 13.8 % (13.2-15.2)
[2018-11-30 14:34] LABS: Albumin 4.4 g/dL (3.9-5); Calcium 10.1 mg/dL (8.4-10.2)
[2018-11-30 14:37] LABS: INR 0.85 (0.87-1.13)
[2018-11-30 14:38] LABS: Partial Thromboplastin Time 24.1 Sec. (24.2-36.6)
--- NOTE | 2018-11-30 14:48 | XRay Report ---
ABDOMEN 2 VIEW(S) INDICATION / CLINICAL INFORMATION: MAIN: constipation, N/V pt sd weakness, vomiting and nausea x2 days..JtS. COMPARISON: CT 05/27/2018. FINDINGS: TUBES / LINES: None. BOWEL GAS PATTERN: No significant abnormality. FREE AIR / EXTRALUMINAL GAS: None seen. ADDITIONAL FINDINGS: Calcifications within the right abdomen corresponding to calcified cystic right renal lesion seen previously. IMPRESSION: 1. No radiographic evidence of acute abdomen. Signer Name: Lamont Vela MD Signed: 11/30/2018 2:43 PM Workstation Name: [id number]
--- NOTE | 2018-11-30 15:50 | Cat Scan Report ---
CT ABDOMEN AND PELVIS WITHOUT IV CONTRAST INDICATION: Abdominal pain, nausea and vomiting. COMPARISON: CT 05/27/2018. TECHNIQUE: All CT scans at this facility use dose modulation, automated exposure control, iterative reconstructi on or weight based dosing, when appropriate, to reduce radiation dose to as low as reasonably achieva ble. FINDINGS: Lung Bases: No significant abnormality. Skeletal System: No acute abnormality. ABDOMEN: Liver: No significant abnormality. Gallbladder: No significant abnormality. Bile Ducts: No significant abnormality. Pancreas: No significant abnormality. Spleen: No significant abnormality. Adrenals: No significant abnormality. Right Kidney: Thick-walled complex cystic lesion with associated calcifications arising from the ante rior cortex of the right kidney is unchanged. Right kidney is otherwise unremarkable. Left Kidney: No significant abnormality. Upper GI tract: There is a very small hiatal hernia. Upper GI tract is otherwise unremarkable. Lymph Nodes: No significant adenopathy. Aorta: No significant abnormality. Additional Findings: No significant abnormality. PELVIS: Colon: Normal . Urinary Bladder and Distal Ureters: No significant abnormality. Appendix: Not visualized. Lymph Nodes: No significant adenopathy. Additional Findings: None. IMPRESSION: 1. Within the limitations of non contrast technique, no acute process in the abdomen or pelvis. 2. Complex thick-walled cystic lesion arising from the anterior cortex of the right kidney is not si gnificantly changed. Signer Name: Lamont Vela MD Signed: 11/30/2018 3:46 PM Workstation Name: [id number]
[2018-11-30 18:25] LABS: Bilirubin,Urine NEG (Negative); Blood,Urine NEG (Negative); Color,Urine Yellow (Yellow); Hyaline Casts,Urine 3 /LPF; Mucus,Urine FEW /HPF; Urobilinogen,Urine < 2.0 mg/dL (<2.0)
[2018-11-30] MEDS ORDERED: SODIUM CHLORIDE FLUSH SYRINGE 10 ML IV PRN (21:19)
[2018-11-30] MEDS ORDERED: PEPCID IV SCH (22:00)
[2018-11-30] MEDS ORDERED: D5NS 1,000 ML IV SCH (22:00)
[2018-11-30] MEDS: DILAUDID IV PRN (22:01)
[2018-11-30] MEDS: REGLAN IV PRN (22:01)
[2018-11-30] MEDS ORDERED: D50W (25GM) Syringe IV PRN (22:21)
[2018-11-30] MEDS: APRESOLINE IV PRN (23:27)
[2018-11-30] MEDS: LANTUS SUB-Q SCH (23:28)
[2018-11-30] MEDS: HumaLOG SUB-Q SCH (23:29)
[2018-11-30] MEDS: SODIUM CHLORIDE FLUSH SYRINGE 10 ML IV SCH (23:35)
[2018-12-01 05:35] LABS: Basophils % (Auto) 0.1 % (0.0-1.8); Hematocrit 33.9 % (30.3-42.9); Hemoglobin 10.8 gm/dl (10.1-14.3); Lymphocytes # (Auto) 1.7 K/mm3 (1.2-5.4); Mean Corpuscular HGB Conc 32 % (30-34); Mean Corpuscular Volume 82 fl (79-97); Monocytes # (Auto) 1.4 K/mm3 (0.0-0.8); Platelet Count 324 K/mm3 (140-440); Red Blood Count 4.13 M/mm3 (3.65-5.03); Red Cell Distribution Width 13.9 % (13.2-15.2)
[2018-12-01 06:00] LABS: Albumin 3.9 g/dL (3.9-5); Calcium 9.6 mg/dL (8.4-10.2)
--- NOTE | 2018-12-01 06:10 | History and Physical Report ---
History of Present Illness Date of examination: 11/30/18 Date of admission: 11/30/18 17:28 Chief complaint: Persistent vomiting for 24 hours History of present illness: 53-year-old female with past medical history of IDDM HTN and Gerd presents to emergency room with complaints of nausea and vomiting. States she has been vomiting all day long. Vomited about 10 times.Also has epigastric pain.She was evaluated in the emergency room yesterday for headache and nausea vomiting and had a CT head which showed her chronic pituitary macroadenoma otherwise normal, and her blood work showed CKD which was improved from prior labwork. States her headache has improved from yesterday, but still experiences discomfort in her head when vomiting. She denies any diarrhea, melena, hematochezia, fever, abdominal pain. States she has not had a bowel movement approximately 2 days. Past Medical History Hypertension: Yes Diabetes: Yes Headaches / Migraines: Yes Glaucoma. Cataracts. Migraines. obesity Surgical History Appendectomy: Yes Family History Htn Social History Smoking Status: Never Smoker Substance Use Type: None - Medications Home Medications: Home Medications Medication Instructions Recorded Confirmed Last Taken Type metFORMIN [Glucophage] 500 mg PO BID 12/13/12 09/28/16 09/27/16 History Insulin Lispro [Humalog] 50 unit SQ BID 09/28/16 09/28/16 09/27/16 History Losartan/Hydrochlorothiazide 1 each PO QDAY 09/28/16 09/28/16 09/27/16 History [Losartan-Hctz 50-12.5 mg Tab] Pantoprazole [Protonix] 40 mg PO QDAY #30 tablet 09/30/16 Unknown Rx Sucralfate [Carafate] 1 gm PO Q6HR 30 Days oral.liqd 09/30/16 Unknown Rx Cipro/Dexameth 0.3/0.1% [Ciprodex 4 drops OT BID #1 bottle 12/24/16 Unknown Rx OTIC] Promethazine [Phenergan SUPPOS] 50 mg [place] Q6H PRN #20 supp.rect 06/14/17 Unknown Rx Naproxen [Naprosyn TAB] 500 mg PO BID #20 tablet 01/08/18 Unknown Rx Cyclobenzaprine [Flexeril 10 MG 10 mg PO QHS PRN #20 tablet 01/23/18 Unknown Rx TAB] Acetaminophen/Codeine [Tylenol 1 tab PO Q6H PRN #14 tab 02/07/18 Unknown Rx /Codeine # 3 tab] Clindamycin [Clindamycin CAP] 300 mg PO Q8H 10 Days #30 cap 02/07/18 Unknown Rx traMADol [Ultram 50 MG tab] 50 mg PO Q4HR PRN #14 tablet 02/17/18 Unknown Rx Tramadol HCl [Ultram] 50 mg PO QAM PRN #12 tablet 04/11/18 Unknown Rx Dicyclomine [Bentyl] 20 mg PO QID PRN #20 tablet 05/27/18 Unknown Rx Ondansetron [Zofran Odt] 4 mg PO Q8HR PRN #20 tab.rapdis 05/27/18 Unknown Rx Ondansetron [Zofran ODT TAB] 4 mg PO Q8HR PRN #14 tab.rapdis 11/29/18 Unknown Rx Review of Systems ROS: Stated complaint: N/HEADACHE Other details as noted in HPI Comment: All other systems reviewed and negative Medications and Allergies Allergies Allergy/AdvReac Type Severity Reaction Status Date / Time Latex, Natural Rubber Allergy Itching Verified 11/30/18 12:53 shellfish derived Allergy Rash Verified 11/30/18 12:53 Home Medications Medication Instructions Recorded Confirmed Last Taken Type metFORMIN [Glucophage] 500 mg PO BID 12/13/12 11/30/18 11/29/18 History Ondansetron [Zofran Odt] 4 mg PO Q8HR PRN #20 tab.rapdis 05/27/18 11/30/18 Unknown Rx Insulin Regular, Human [HumuLIN R] 0 units SQ QHS 11/30/18 11/30/18 Unknown History amLODIPine [Norvasc] 10 mg PO DAILY 11/30/18 11/30/18 Unknown History Active Meds: Active Medications Acetaminophen (Tylenol) 650 mg PO Q4H PRN PRN Reason: Pain MILD(1-3)/Fever >100.5/CALIXTO Amlodipine Besylate (Norvasc) 10 mg PO DAILY [facility] Dextrose (D50w (25gm) Syringe) 50 ml IV PRN PRN PRN Reason: Hypoglycemia Famotidine (Pepcid) 20 mg IV BID [facility] Last Admin: 11/30/18 22:01 Dose: 20 mg Documented by: Hydralazine HCl (Apresoline) 10 mg IV Q4HR PRN PRN Reason: Blood Pressure Last Admin: 11/30/18 23:27 Dose: 10 mg Documented by: Hydromorphone HCl (Dilaudid) 0.5 mg IV Q3H PRN PRN Reason: Pain , Severe (7-10) Last Admin: 11/30/18 22:01 Dose: 0.5 mg Documented by: Dextrose/Sodium Chloride (D5ns) 1,000 mls @ 100 mls/hr IV DIRECT ANAT Last Admin: 12/01/18 00:51 Dose: 100 mls/hr Documented by: Insulin Glargine (Lantus) 10 units SUB-Q QHS ANAT Last Admin: 11/30/18 23:28 Dose: 10 units Documented by: Insulin Human Lispro (Humalog) 0 unit SUB-Q Q6HR [facility]; Protocol Last Admin: 11/30/18 23:29 Dose: 6 unit Documented by: Metoclopramide HCl (Reglan) 10 mg IV Q6H PRN PRN Reason: Nausea And Vomiting Last Admin: 11/30/18 22:01 Dose: 10 mg Documented by: Ondansetron HCl (Zofran) 4 mg IV Q3H PRN PRN Reason: Nausea And Vomiting Sodium Chloride (Sodium Chloride Flush Syringe 10 Ml) 10 ml IV BID [facility] Last Admin: 11/30/18 23:35 Dose: 10 ml Documented by: Sodium Chloride (Sodium Chloride Flush Syringe 10 Ml) 10 ml IV PRN PRN PRN Reason: LINE FLUSH Exam - Constitutional Vitals: Temp Pulse Resp BP Pulse Ox 98.8 F 116 H 20 178/82 96 12/01/18 05:21 12/01/18 05:21 12/01/18 05:21 12/01/18 05:21 12/01/18 05:21 General appearance: Present: no acute distress, well-nourished - EENT Eyes: Present: PERRL ENT: hearing intact, clear oral mucosa - Neck Neck: Present: supple, normal ROM - Respiratory Respiratory effort: normal Respiratory: bilateral: CTA - Cardiovascular Heart rate: 78 Rhythm: regular Heart Sounds: Present: S1 & S2. Absent: rub, click - Extremities Extremities: no ischemia, pulses intact, pulses symmetrical, No edema Peripheral Pulses: within normal limits - Abdominal General gastrointestinal: Present: soft, non-tender, non-distended, normal bowel sounds Female genitourinary: Present: normal - Rectal Rectal Exam: deferred - Integumentary Integumentary: Present: clear, warm, dry - Musculoskeletal Musculoskeletal: gait normal, strength equal bilaterally - Psychiatric Psychiatric: appropriate mood/affect, intact judgment & insight - Neurologic Neurologic: CNII-XII intact, moves all extremities - Allied Health Allied health notes reviewed: nursing, case management Results - Labs CBC & Chem 7: 12/01/18 04:40 12/01/18 04:40 Labs: Laboratory Last Values WBC 15.9 K/mm3 (4.5-11.0) H 12/01/18 04:40 RBC 4.13 M/mm3 (3.65-5.03) 12/01/18 04:40 Hgb 10.8 gm/dl (10.1-14.3) 12/01/18 04:40 Hct 33.9 % (30.3-42.9) 12/01/18 04:40 MCV 82 fl (79-97) 12/01/18 04:40 MCH 26 pg (28-32) L 12/01/18 04:40 MCHC 32 % (30-34) 12/01/18 04:40 RDW 13.9 % (13.2-15.2) 12/01/18 04:40 Plt Count 324 K/mm3 (140-440) 12/01/18 04:40 Lymph % (Auto) 11.0 % (13.4-35.0) L 12/01/18 04:40 Ball[place] % (Auto) 9.0 % (0.0-7.3) H 12/01/18 04:40 Eos % (Auto) 0.0 % (0.0-4.3) 12/01/18 04:40 Baso % (Auto) 0.1 % (0.0-1.8) 12/01/18 04:40 Lymph # 1.7 K/mm3 (1.2-5.4) 12/01/18 04:40 Ballard # 1.4 K/mm3 (0.0-0.8) H 12/01/18 04:40 Eos # 0.0 K/mm3 (0.0-0.4) 12/01/18 04:40 Baso # 0.0 K/mm3 (0.0-0.1) 12/01/18 04:40 Seg Neutrophils % 79.9 % (40.0-70.0) H 12/01/18 04:40 Seg Neutrophils # 12.7 K/mm3 (1.8-7.7) H 12/01/18 04:40 PT 11.4 Sec. (12.2-14.9) L 11/30/18 Unknown INR 0.85 (0.87-1.13) L 11/30/18 Unknown APTT 24.1 Sec. (24.2-36.6) L 11/30/18 Unknown VBG pH 7.335 (7.320-7.420) 11/30/18 16:15 Sodium 147 mmol/L (137-145) H 12/01/18 04:40 Potassium 4.2 mmol/L (3.6-5.0) 12/01/18 04:40 Chloride 106.6 mmol/L (98-107) 12/01/18 04:40 Carbon Dioxide 27 mmol/L (22-30) 12/01/18 04:40 18 mmol/L 12/01/18 04:40 BUN 26 mg/dL (7-17) H 12/01/18 04:40 1.2 mg/dL (0.7-1.2) 12/01/18 04:40 Estimated GFR 57 ml/min 12/01/18 04:40 22 % 12/01/18 04:40 Glucose 281 mg/dL (65-100) H 12/01/18 04:40 POC Glucose 326 (70-105) H 11/30/18 23:06 10.3 % (4-6) H 11/30/18 18:08 Calcium 9.6 mg/dL (8.4-10.2) 12/01/18 04:40 0.30 mg/dL (0.1-1.2) 12/01/18 04:40 AST 13 units/L (5-40) 12/01/18 04:40 ALT 6 units/L (7-56) L 12/01/18 04:40 75 units/L (35-129) 12/01/18 04:40 7.6 g/dL (6.3-8.2) 12/01/18 04:40 3.9 g/dL (3.9-5) 12/01/18 04:40 1.1 % 12/01/18 04:40 9 units/L (13-60) L 11/30/18 Unknown Yellow (Yellow) 11/30/18 17:14 Clear (Clear) 11/30/18 17:14 5.0 (5.0-7.0) 11/30/18 17:14 Ur Specific [place] 1.018 (1.003-1.030) 11/30/18 17:14 100 mg/dl mg/dL (Negative) 11/30/18 17:14 >=500 mg/dL (Negative) 11/30/18 17:14 20 mg/dL (Negative) 11/30/18 17:14 Neg (Negative) 11/30/18 17:14 Neg (Negative) 11/30/18 17:14 Neg (Negative) 11/30/18 17:14 < 2.0 mg/dL (<2.0) 11/30/18 17:14 Ur Leukocyte Esterase Neg (Negative) 11/30/18 17:14 1.0 /HPF (0.0-6.0) 11/30/18 17:14 2.0 /HPF (0.0-6.0) 11/30/18 17:14 U Epithel Cells (Auto) 1.0 /HPF (0-13.0) 11/30/18 17:14 Hyaline Casts 3 /LPF 11/30/18 17:14 Few /HPF 11/30/18 17:14 Short CBC 11/30/18 12/01/18 Range/Units Unknown 04:40 WBC 17.6 H 15.9 H (4.5-11.0) K/mm3 Hgb 11.8 10.8 (10.1-14.3) gm/dl Hct 36.4 33.9 (30.3-42.9) % Plt Count 377 324 (140-440) K/mm3 BMP 11/30/18 12/01/18 Unknown 04:40 Sodium 143 147 H Potassium 4.4 4.2 Chloride 100.4 106.6 Carbon Dioxide 24 27 BUN 28 H 26 H Creatinine 1.3 H 1.2 Glucose 365 H 281 H Calcium 10.1 9.6 Liver Function 11/30/18 12/01/18 Range/Units Unknown 04:40 Total Bilirubin 0.40 0.30 (0.1-1.2) mg/dL AST 12 13 (5-40) units/L ALT 5 L 6 L (7-56) units/L Alkaline Phosphatase 85 75 (35-129) units/L Albumin 4.4 3.9 (3.9-5) g/dL Urine 11/30/ Range/Units 17:14 Urine Color Yellow (Yellow) Urine pH 5.0 (5.0-7.0) Ur Specific [place] 1.018 (1.003-1.030) Urine Protein 100 mg/dl (Negative) mg/dL Urine Glucose (UA) >=500 (Negative) mg/dL - Imaging and Cardiology Abdominal x-ray: report reviewed (NAF) CT scan - abdomen: report reviewed (NAF) Assessment and Plan Advance Directives: Yes (Full code) VTE prophylaxis?: Chemical Plan of care discussed with patient/family: Yes - Patient Problems (1) Intractable nausea and vomiting Current Visit: Yes Status: Acute Qualifiers: Vomiting type: unspecified Qualified Code(s): R11.2 - Nausea with vomiting, unspecified Plan to address problem: IV Fluids and IV protonix and IVZofran+ IV Reglan (2) Acute upper GI bleed Current Visit: No Status: Acute Plan to address problem: Patient says there was blood in vomitus once IV Protonix for now No blood seen GI consult if necessary (3) SALMA (acute kidney injury) Current Visit: Yes Status: Acute Plan to address problem: prerenal IV fluids for now (4) IDDM (insulin dependent diabetes mellitus) Current Visit: Yes Status: Chronic Plan to address problem: Cont Insulin and coverage Clear liquids Check A1c (5) HTN (hypertension) Current Visit: Yes Status: Chronic Qualifiers: Hypertension type: essential hypertension Qualified Code(s): I10 - Essential (primary) hypertension Plan to address problem: Cont antihypertensives (6) Leukocytosis Current Visit: Yes Status: Acute Qualifiers: Leukocytosis type: unspecified Qualified Code(s): D72.829 - Elevated white blood cell count, unspecified Plan to address problem: Sec to demargination No abx initiated (7) DVT prophylaxis Current Visit: Yes Status: Acute Plan to address problem: on scd's and GI prophylaxis
[2018-12-01] MEDS: HumaLOG SUB-Q SCH ×4 (06:27→23:45)
[2018-12-01] MEDS: APRESOLINE IV PRN ×2 (06:28→20:37)
[2018-12-01] MEDS: DILAUDID IV PRN ×3 (06:31→22:46)
[2018-12-01 07:21] LABS: Hematocrit 39.3 % (30.3-42.9); Hemoglobin 12.7 gm/dl (10.1-14.3)
--- NOTE | 2018-12-01 10:40 | Progress Note ---
Assessment and Plan Assessment and plan: Intractable nausea and vomiting Zofran prn Add Reglan iv fluids headache prn Tylenol Acute kidney injury improving continue iv fluid Diabetes mellitus type 2 Insulin for now Hold Metformin from home Morbid obesity I counseled her on diet and exercise. full code status. History Interval history: Nausea Vomiting headache Hospitalist Physical - Physical exam Narrative exam: Gen: Not in acute distress,lying in bed, morbidly obese HEENT: Normocephalic, atraumatic Neck: supple, no JVD Heart: S1 and S2 reg, no murmurs, rubs or gallop Lungs: Clear, no crackles, no wheeze Abd: soft, non tender, non distended, normal BS, Ext: No edema, no clubbing, no cyanosis Neuro:Awake,alert,oriented X 3, moves all ext, no focal neurological signs - Constitutional Vitals: Temp Pulse Resp BP Pulse Ox 98.8 F 79 17 178/82 96 12/01/18 05:21 12/01/18 06:28 12/01/18 06:31 12/01/18 06:28 12/01/18 05:21 General appearance: Present: no acute distress, well-nourished Results - Labs CBC & Chem 7: 12/01/18 06:27 12/01/18 04:40 Labs: Laboratory Last Values WBC 15.9 K/mm3 (4.5-11.0) H 12/01/18 04:40 RBC 4.13 M/mm3 (3.65-5.03) 12/01/18 04:40 Hgb 12.7 gm/dl (10.1-14.3) 12/01/18 06:27 Hct 39.3 % (30.3-42.9) 12/01/18 06:27 MCV 82 fl (79-97) 12/01/18 04:40 MCH 26 pg (28-32) L 12/01/18 04:40 MCHC 32 % (30-34) 12/01/18 04:40 RDW 13.9 % (13.2-15.2) 12/01/18 04:40 Plt Count 324 K/mm3 (140-440) 12/01/18 04:40 Lymph % (Auto) 11.0 % (13.4-35.0) L 12/01/18 04:40 [place] % (Auto) 9.0 % (0.0-7.3) H 12/01/18 04:40 Eos % (Auto) 0.0 % (0.0-4.3) 12/01/18 04:40 Baso % (Auto) 0.1 % (0.0-1.8) 12/01/18 04:40 Lymph # 1.7 K/mm3 (1.2-5.4) 12/01/18 04:40 [place] # 1.4 K/mm3 (0.0-0.8) H 12/01/18 04:40 Eos # 0.0 K/mm3 (0.0-0.4) 12/01/18 04:40 Baso # 0.0 K/mm3 (0.0-0.1) 12/01/18 04:40 Seg Neutrophils % 79.9 % (40.0-70.0) H 12/01/18 04:40 Seg Neutrophils # 12.7 K/mm3 (1.8-7.7) H 12/01/18 04:40 PT 11.4 Sec. (12.2-14.9) L 11/30/18 Unknown INR 0.85 (0.87-1.13) L 11/30/18 Unknown APTT 24.1 Sec. (24.2-36.6) L 11/30/18 Unknown VBG pH 7.335 (7.320-7.420) 11/30/18 16:15 Sodium 147 mmol/L (137-145) H 12/01/18 04:40 Potassium 4.2 mmol/L (3.6-5.0) 12/01/18 04:40 Chloride 106.6 mmol/L (98-107) 12/01/18 04:40 Carbon Dioxide 27 mmol/L (22-30) 12/01/18 04:40 18 mmol/L 12/01/18 04:40 BUN 26 mg/dL (7-17) H 12/01/18 04:40 1.2 mg/dL (0.7-1.2) 12/01/18 04:40 Estimated GFR 57 ml/min 12/01/18 04:40 22 % 12/01/18 04:40 Glucose 281 mg/dL (65-100) H 12/01/18 04:40 POC Glucose 292 (70-105) H 12/01/18 06:21 10.3 % (4-6) H 11/30/18 18:08 Calcium 9.6 mg/dL (8.4-10.2) 12/01/18 04:40 0.30 mg/dL (0.1-1.2) 12/01/18 04:40 AST 13 units/L (5-40) 12/01/18 04:40 ALT 6 units/L (7-56) L 12/01/18 04:40 75 units/L (35-129) 12/01/18 04:40 7.6 g/dL (6.3-8.2) 12/01/18 04:40 3.9 g/dL (3.9-5) 12/01/18 04:40 1.1 % 12/01/18 04:40 9 units/L (13-60) L 11/30/18 Unknown Yellow (Yellow) 11/30/18 17:14 Clear (Clear) 11/30/18 17:14 5.0 (5.0-7.0) 11/30/18 17:14 Ur Specific [place] 1.018 (1.003-1.030) 11/30/18 17:14 100 mg/dl mg/dL (Negative) 11/30/18 17:14 >=500 mg/dL (Negative) 11/30/18 17:14 20 mg/dL (Negative) 11/30/18 17:14 Neg (Negative) 11/30/18 17:14 Neg (Negative) 11/30/18 17:14 Neg (Negative) 11/30/18 17:14 < 2.0 mg/dL (<2.0) 11/30/18 17:14 Ur Leukocyte Esterase Neg (Negative) 11/30/18 17:14 1.0 /HPF (0.0-6.0) 11/30/18 17:14 2.0 /HPF (0.0-6.0) 11/30/18 17:14 U Epithel Cells (Auto) 1.0 /HPF (0-13.0) 11/30/18 17:14 Hyaline Casts 3 /LPF 11/30/18 17:14 Few /HPF 11/30/18 17:14 Active Medications - Current Medications Current Medications: Generic Name Dose Route Start Last Admin Trade Name Freq PRN Reason Stop Dose Admin Acetaminophen 650 mg 11/30/18 21:19 Tylenol PO Q4H PRN Pain MILD(1-3)/Fever >100.5/CALIXTO Amlodipine Besylate 10 mg 12/01/18 10:00 Norvasc PO DAILY ANAT Dextrose 50 ml 11/30/18 22:21 D50w (25gm) Syringe IV PRN PRN Hypoglycemia Hydralazine HCl 10 mg 11/30/18 22:20 12/01/18 06:28 Apresoline IV 10 mg Q4HR PRN Administration Blood Pressure Hydromorphone HCl 0.5 mg 11/30/18 21:19 12/01/18 06:31 Dilaudid IV 0.5 mg Q3H PRN Administration Pain , Severe (7-10) Sodium Chloride 1,000 mls @ 75 mls/hr 12/01/18 09:00 Nacl 0.45% 1000 Ml IV DIRECT ANAT Insulin Glargine 10 units 11/30/18 22:00 11/30/18 23:28 Lantus SUB-Q 10 units QHS ANAT Administration Insulin Human Lispro 0 unit 12/01/18 00:00 12/01/18 06:27 Humalog SUB-Q 4 unit Q6HR ANAT Administration Protocol Metoclopramide HCl 10 mg 11/30/18 21:19 11/30/18 22:01 Reglan IV 10 mg Q6H PRN Administration Nausea And Vomiting Ondansetron HCl 4 mg 11/30/18 21:19 Zofran IV Q3H PRN Nausea And Vomiting Pantoprazole Sodium 40 mg 12/01/18 10:00 Protonix IV BID ANAT Sodium Chloride 10 ml 11/30/18 22:00 11/30/18 23:35 Sodium Chloride Flush Syringe 10 Ml IV 10 ml BID ANAT Administration Sodium Chloride 10 ml 11/30/18 21:19 Sodium Chloride Flush Syringe 10 Ml IV PRN PRN LINE FLUSH
[2018-12-01] MEDS: PROTONIX IV SCH ×2 (10:59→22:47)
[2018-12-01] MEDS: NORVASC PO SCH (10:59)
[2018-12-01] MEDS: TYLENOL PO PRN ×2 (10:59→20:37)
[2018-12-01] MEDS: ZOFRAN IV PRN ×2 (10:59→18:03)
[2018-12-01] MEDS: NACL 0.45% 1000 ML 1,000 ML IV SCH (10:59)
--- NOTE | 2018-12-01 11:23 | XRay Report ---
CHEST 1 VIEW INDICATION: Leukocytosis. COMPARISON: 05/27/2018. FINDINGS: Support devices: None. Heart: Normal. Lungs/Pleura: No acute pulmonary or pleural findings. IMPRESSION: 1. No acute findings. Signer Name: Lamont Vela MD Signed: 12/01/2018 11:18 AM Workstation Name: [id number]
[2018-12-01] MEDS: SODIUM CHLORIDE FLUSH SYRINGE 10 ML IV SCH (12:32)
[2018-12-01 13:01] LABS: Hemoglobin 10.9 gm/dl (10.1-14.3)
[2018-12-01] MEDS: LANTUS SUB-Q SCH (22:49)
[2018-12-02 00:10] LABS: Hematocrit 32.5 % (30.3-42.9); Hemoglobin 10.2 gm/dl (10.1-14.3)
[2018-12-02] MEDS: SODIUM CHLORIDE FLUSH SYRINGE 10 ML IV SCH ×3 (03:35→21:56)
[2018-12-02] MEDS: NACL 0.45% 1000 ML 1,000 ML IV SCH ×2 (03:35→18:23)
[2018-12-02] MEDS: APRESOLINE IV PRN (05:40)
[2018-12-02] MEDS: DILAUDID IV PRN (05:41)
[2018-12-02] MEDS: HumaLOG SUB-Q SCH ×3 (05:42→18:19)
[2018-12-02] MEDS: REGLAN IV PRN ×2 (05:46→20:37)
[2018-12-02 07:25] LABS: Hematocrit 34.1 % (30.3-42.9); Hemoglobin 10.9 gm/dl (10.1-14.3); Mean Corpuscular HGB Conc 32 % (30-34); Mean Corpuscular Volume 81 fl (79-97); Platelet Count 330 K/mm3 (140-440); Red Blood Count 4.24 M/mm3 (3.65-5.03); Red Cell Distribution Width 13.3 % (13.2-15.2)
[2018-12-02 07:31] LABS: BUN/Creatinine Ratio 19; Blood Urea Nitrogen 19 mg/dL (7-17); Calcium 9.4 mg/dL (8.4-10.2); Hemolysis Index 0
[2018-12-02] MEDS: PROTONIX IV SCH ×2 (10:03→21:56)
[2018-12-02] MEDS: NORVASC PO SCH (10:04)
[2018-12-02] MEDS: IMITREX PO PRN ×2 (10:06→20:37)
--- NOTE | 2018-12-02 15:14 | Progress Note ---
Assessment and Plan Assessment and plan: Patient is 53-year-old female with past medical history of diabetes, hypertension, and GERD presented to emergency room with complaints of nausea and vomiting. States she has been vomiting all day long. Vomited about 10 times. Also has epigastric pain. 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 Her Cr was 1.3. She was diagnosed with SALMA due to intractable nausea, vomiting. Was started on iv fluids admitted. Vomiting has persisted, therefore GI consulted and they recommend EGD in am. Intractable nausea and vomiting Zofran prn Added Reglan iv fluids GI consulted For EGD in am headache prn Tylenol Acute kidney injury due to vasomotor nephropathy improving continue iv fluid Diabetes mellitus type 2 Insulin for now Hold Metformin from home Morbid obesity I counseled her on diet and exercise. full code status. History Interval history: Still having nausea and Nausea and Vomiting Headache Hospitalist Physical - Physical exam Narrative exam: Gen: Not in acute distress,lying in bed, obese HEENT: Normocephalic, atraumatic Neck: supple, no JVD Heart: S1 and S2 reg, no murmurs, rubs or gallop Lungs: Clear, no crackles, no wheeze Abd: soft, non tender, non distended, normal BS, Ext: No edema, no clubbing, no cyanosis Neuro:Awake,alert,oriented X 3, moves all ext, no focal neurological signs - Constitutional Vitals: Temp Pulse Resp BP Pulse Ox 97.9 F 89 20 170/85 96 12/02/18 12:03 12/02/18 12:03 12/02/18 12:03 12/02/18 12:03 12/02/18 12:03 General appearance: Present: no acute distress, obese Results - Labs CBC & Chem 7: 12/02/18 06:03 12/02/18 06:03 Labs: Laboratory Last Values WBC 11.1 K/mm3 (4.5-11.0) H 12/02/18 06:03 RBC 4.24 M/mm3 (3.65-5.03) 12/02/18 06:03 Hgb 10.9 gm/dl (10.1-14.3) 12/02/18 06:03 Hct 34.1 % (30.3-42.9) 12/02/18 06:03 MCV 81 fl (79-97) 12/02/18 06:03 MCH 26 pg (28-32) L 12/02/18 06:03 MCHC 32 % (30-34) 12/02/18 06:03 RDW 13.3 % (13.2-15.2) 12/02/18 06:03 Plt Count 330 K/mm3 (140-440) 12/02/18 06:03 Lymph % (Auto) 11.0 % (13.4-35.0) L 12/01/18 04:40 [place] % (Auto) 9.0 % (0.0-7.3) H 12/01/18 04:40 Eos % (Auto) 0.0 % (0.0-4.3) 12/01/18 04:40 Baso % (Auto) 0.1 % (0.0-1.8) 12/01/18 04:40 Lymph # 1.7 K/mm3 (1.2-5.4) 12/01/18 04:40 [place] # 1.4 K/mm3 (0.0-0.8) H 12/01/18 04:40 Eos # 0.0 K/mm3 (0.0-0.4) 12/01/18 04:40 Baso # 0.0 K/mm3 (0.0-0.1) 12/01/18 04:40 Seg Neutrophils % 79.9 % (40.0-70.0) H 12/01/18 04:40 Seg Neutrophils # 12.7 K/mm3 (1.8-7.7) H 12/01/18 04:40 PT 11.4 Sec. (12.2-14.9) L 11/30/18 Unknown INR 0.85 (0.87-1.13) L 11/30/18 Unknown APTT 24.1 Sec. (24.2-36.6) L 11/30/18 Unknown VBG pH 7.335 (7.320-7.420) 11/30/18 16:15 Sodium 140 mmol/L (137-145) 12/02/18 06:03 Potassium 4.8 mmol/L (3.6-5.0) 12/02/18 06:03 Chloride 100.9 mmol/L (98-107) 12/02/18 06:03 Carbon Dioxide 28 mmol/L (22-30) 12/02/18 06:03 16 mmol/L 12/02/18 06:03 BUN 19 mg/dL (7-17) H 12/02/18 06:03 1.0 mg/dL (0.7-1.2) 12/02/18 06:03 Estimated GFR > 60 ml/min 12/02/18 06:03 19 % 12/02/18 06:03 Glucose 205 mg/dL (65-100) H 12/02/18 06:03 POC Glucose 194 (70-105) H 12/02/18 12:15 10.3 % (4-6) H 11/30/18 18:08 Calcium 9.4 mg/dL (8.4-10.2) 12/02/18 06:03 0.30 mg/dL (0.1-1.2) 12/01/18 04:40 AST 13 units/L (5-40) 12/01/18 04:40 ALT 6 units/L (7-56) L 12/01/18 04:40 75 units/L (35-129) 12/01/18 04:40 7.6 g/dL (6.3-8.2) 12/01/18 04:40 3.9 g/dL (3.9-5) 12/01/18 04:40 1.1 % 12/01/18 04:40 9 units/L (13-60) L 11/30/18 Unknown Yellow (Yellow) 11/30/18 17:14 Clear (Clear) 11/30/18 17:14 5.0 (5.0-7.0) 11/30/18 17:14 Ur Specific [place] 1.018 (1.003-1.030) 11/30/18 17:14 100 mg/dl mg/dL (Negative) 11/30/18 17:14 >=500 mg/dL (Negative) 11/30/18 17:14 20 mg/dL (Negative) 11/30/18 17:14 Neg (Negative) 11/30/18 17:14 Neg (Negative) 11/30/18 17:14 Neg (Negative) 11/30/18 17:14 < 2.0 mg/dL (<2.0) 11/30/18 17:14 Ur Leukocyte Esterase Neg (Negative) 11/30/18 17:14 1.0 /HPF (0.0-6.0) 11/30/18 17:14 2.0 /HPF (0.0-6.0) 11/30/18 17:14 U Epithel Cells (Auto) 1.0 /HPF (0-13.0) 11/30/18 17:14 Hyaline Casts 3 /LPF 11/30/18 17:14 Few /HPF 11/30/18 17:14 Active Medications - Current Medications Current Medications: Generic Name Dose Route Start Last Admin Trade Name Freq PRN Reason Stop Dose Admin Acetaminophen 650 mg 11/30/18 21:19 12/01/18 20:37 Tylenol PO 650 mg Q4H PRN Administration Pain MILD(1-3)/Fever >100.5/CALIXTO Amlodipine Besylate 10 mg 12/01/18 10:00 12/02/18 10:04 Norvasc PO 10 mg DAILY ANAT Administration Dextrose 50 ml 11/30/18 22:21 D50w (25gm) Syringe IV PRN PRN Hypoglycemia Hydralazine HCl 10 mg 11/30/18 22:20 12/02/18 05:40 Apresoline IV 10 mg Q4HR PRN Administration Blood Pressure Hydromorphone HCl 0.5 mg 11/30/18 21:19 12/02/18 05:41 Dilaudid IV 0.5 mg Q3H PRN Administration Pain , Severe (7-10) Sodium Chloride 1,000 mls @ 75 mls/hr 12/01/18 09:00 12/02/18 03:35 Nacl 0.45% 1000 Ml IV 75 mls/hr DIRECT ANAT Administration Insulin Glargine 10 units 11/30/18 22:00 12/01/18 22:49 Lantus SUB-Q 10 units QHS ANAT Administration Insulin Human Lispro 0 unit 12/01/18 00:00 12/02/18 12:42 Humalog SUB-Q 2 unit Q6HR ANAT Administration Protocol Metoclopramide HCl 10 mg 11/30/18 21:19 12/02/18 05:46 Reglan IV 10 mg Q6H PRN Administration Nausea And Vomiting Ondansetron HCl 4 mg 11/30/18 21:19 12/01/18 18:03 Zofran IV 4 mg Q3H PRN Administration Nausea And Vomiting Pantoprazole Sodium 40 mg 12/01/18 10:00 12/02/18 10:03 Protonix IV 12/02/18 23:59 40 mg BID ANAT Administration Pantoprazole Sodium 40 mg 12/03/18 10:00 Protonix PO BID ANAT Sodium Chloride 10 ml 11/30/18 22:00 12/02/18 10:05 Sodium Chloride Flush Syringe 10 Ml IV 10 ml BID ANAT Administration Sodium Chloride 10 ml 11/30/18 21:19 Sodium Chloride Flush Syringe 10 Ml IV PRN PRN LINE FLUSH Sumatriptan Succinate 25 mg 12/01/18 18:27 12/02/18 10:06 Imitrex PO 25 mg Q2H PRN Administration Migraine Headache
--- NOTE | 2018-12-02 16:09 | Gastroenterology Consultation ---
History of Present Illness - Reason for Consult Consult date: 12/02/18 intractable N/V Requesting physician: FREDDIE BONNER - History of Present Illness Patient is a 53 y/o female with PMH of obesity, migraines, glaucoma, cataracts, HTN, GERD, and IDDM (uncontrolled) who presented to ED with c/o N/V with a small amount of bloody emesis which has now resolved and epigastric pain to which GI has been consulted. Abd CT w/o acute GI process upon admission. Patient is previously known to our service for similar symptoms in 2017 and underwent an EGD at that time that showed moderate esophagitis and mild antral gastritis (bx negative for H pylori). This afternoon patient was resting in bed w/o acute distress. Reports feeling better with symptoms improving with only 2 episodes of vomiting so far today (w/ non-bloody emesis). Denies fever, CP, SOB, wt loss, melena, dysphagia, diarrhea, constipation, or hematochezia. No hx of liver disease or PUD but has been taking Ibuprofen twice daily recently for headaches. Past History Past Medical History: other (as per HPI) Past Surgical History: appendectomy, Other (EGD 2017) Social history: denies: smoking, alcohol abuse Family history: hypertension Medications and Allergies Allergies Allergy/AdvReac Type Severity Reaction Status Date / Time Latex, Natural Rubber Allergy Itching Verified 11/30/18 12:53 shellfish derived Allergy Rash Verified 11/30/18 12:53 Home Medications Medication Instructions Recorded Confirmed Last Taken Type metFORMIN [Glucophage] 500 mg PO BID 12/13/12 11/30/18 11/29/18 History Ondansetron [Zofran Odt] 4 mg PO Q8HR PRN #20 tab.rapdis 05/27/18 11/30/18 Unknown Rx Insulin Regular, Human [HumuLIN R] 0 units SQ QHS 11/30/18 11/30/18 Unknown History amLODIPine [Norvasc] 10 mg PO DAILY 11/30/18 11/30/18 Unknown History Active Meds: Active Medications Acetaminophen (Tylenol) 650 mg PO Q4H PRN PRN Reason: Pain MILD(1-3)/Fever >100.5/CALIXTO Last Admin: 12/01/18 20:37 Dose: 650 mg Documented by: Amlodipine Besylate (Norvasc) 10 mg PO DAILY [facility] Last Admin: 12/02/18 10:04 Dose: 10 mg Documented by: Dextrose (D50w (25gm) Syringe) 50 ml IV PRN PRN PRN Reason: Hypoglycemia Hydralazine HCl (Apresoline) 10 mg IV Q4HR PRN PRN Reason: Blood Pressure Last Admin: 12/02/18 05:40 Dose: 10 mg Documented by: Hydromorphone HCl (Dilaudid) 0.5 mg IV Q3H PRN PRN Reason: Pain , Severe (7-10) Last Admin: 12/02/18 05:41 Dose: 0.5 mg Documented by: Sodium Chloride (Nacl 0.45% 1000 Ml) 1,000 mls @ 75 mls/hr IV DIRECT [facility] Last Admin: 12/02/18 03:35 Dose: 75 mls/hr Documented by: Insulin Glargine (Lantus) 10 units SUB-Q QHS [facility] Last Admin: 12/01/18 22:49 Dose: 10 units Documented by: Insulin Human Lispro (Humalog) 0 unit SUB-Q Q6HR [facility]; Protocol Last Admin: 12/02/18 12:42 Dose: 2 unit Documented by: Metoclopramide HCl (Reglan) 10 mg IV Q6H PRN PRN Reason: Nausea And Vomiting Last Admin: 12/02/18 05:46 Dose: 10 mg Documented by: Ondansetron HCl (Zofran) 4 mg IV Q3H PRN PRN Reason: Nausea And Vomiting Last Admin: 12/01/18 18:03 Dose: 4 mg Documented by: Pantoprazole Sodium (Protonix) 40 mg IV BID [facility] Stop: 12/02/18 23:59 Last Admin: 12/02/18 10:03 Dose: 40 mg Documented by: Pantoprazole Sodium (Protonix) 40 mg PO BID [facility] Sodium Chloride (Sodium Chloride Flush Syringe 10 Ml) 10 ml IV BID [facility] Last Admin: 12/02/18 10:05 Dose: 10 ml Documented by: Sodium Chloride (Sodium Chloride Flush Syringe 10 Ml) 10 ml IV PRN PRN PRN Reason: LINE FLUSH Sumatriptan Succinate (Imitrex) 25 mg PO Q2H PRN PRN Reason: Migraine Headache Last Admin: 12/02/18 10:06 Dose: 25 mg Documented by: Medications reviewed/updated as required Review of Systems - Review of Systems All systems: negative Gastrointestinal: abdominal pain (epigastric), nausea, vomiting Exam - Constitutional Vital Signs: Temp Pulse Resp BP Pulse Ox 97.9 F 89 20 170/85 96 12/02/18 12:03 12/02/18 12:03 12/02/18 12:03 12/02/18 12:03 12/02/18 12:03 General appearance: obese - EENT Eyes: PERRL, EOM intact ENT: hearing intact - Respiratory Respiratory effort: normal - Cardiovascular Rhythm: regular - Gastrointestinal General gastrointestinal: Present: soft, non-tender, non-distended, normal bowel sounds - Neurologic Neurological: alert and oriented x3 - Labs CBC & Chem 7: 12/02/18 06:03 12/02/18 06:03 Lab Results: Laboratory Results - last 24 hr 12/01/18 12/01/18 12/01/18 16:50 23:37 23:47 WBC RBC Hgb 10.2 Hct 32.5 MCV MCH MCHC RDW Plt Count Sodium Potassium Chloride Carbon Dioxide Anion Gap BUN Creatinine Estimated GFR BUN/Creatinine Ratio Glucose POC Glucose 273 H 240 H Calcium 12/02/18 12/02/18 12/02/18 05:16 06:03 06:03 WBC 11.1 H RBC 4.24 Hgb 10.9 Hct 34.1 MCV 81 MCH 26 L MCHC 32 RDW 13.3 Plt Count 330 Sodium 140 Potassium 4.8 Chloride 100.9 Carbon Dioxide 28 Anion Gap 16 BUN 19 H Creatinine 1.0 Estimated GFR > 60 BUN/Creatinine Ratio 19 Glucose 205 H POC Glucose 190 H Calcium 9.4 12/02/18 12:15 WBC RBC Hgb Hct MCV MCH MCHC RDW Plt Count Sodium Potassium Chloride Carbon Dioxide Anion Gap BUN Creatinine Estimated GFR BUN/Creatinine Ratio Glucose POC Glucose 194 H Calcium Assessment and Plan 1.intractable N/V 2.epigastric pain 3.IDDM (uncontrolled) -afebrile -WBC 15.9 -H/H, LFTs, and lipase WNL -abd CT w/o acute GI process -last EGD 2016 showed moderate esophagitis and mild antral gastritis (bx negative for H. pylori) -etiology-likely 2/2 uncontrolled DM (possible underlying gastroparesis) vs other -will schedule for EGD tomorrow for further evaluation (r/o GI pathology such as PUD or GOO) -okay for liquids as tolerated today then NPO after MN -A1C in am -continue PPI -avoid narcotics for this may exacerbate symptoms -optimize glycemic control -continue antiemetics and supportive care -further recommendations to follow based on EGD results
[2018-12-03] MEDS: LANTUS SUB-Q SCH ×2 (00:43→23:09)
[2018-12-03] MEDS: HumaLOG SUB-Q SCH ×4 (00:45→18:13)
[2018-12-03] MEDS: APRESOLINE IV PRN (06:45)
[2018-12-03] MEDS: NACL 0.9% 1000 ML 1,000 ML IV SCH ×2 (06:48→09:30)
[2018-12-03] MEDS ORDERED: SUBLIMAZE ONE (09:43)
[2018-12-03] MEDS ORDERED: DIPRIVAN 10 MG/ML IV ONE (09:44)
--- NOTE | 2018-12-03 09:47 | Anesthesia Consultation ---
Anesthesia Consult and Med Hx Date of service: 12/03/18 - Airway Anesthetic Teeth Evaluation: Good ROM Head & Neck: Adequate Mental/Hyoid Distance: Inadequate Mallampati Class: Class II Intubation Access Assessment: Probably Good - Pulmonary Exam CTA: Yes - Cardiac Exam Cardiac Exam: RRR - Pre-Operative Health Status ASA Pre-Surgery Classification: ASA3 Proposed Anesthetic Plan: MAC - Pulmonary Hx Smoking: No Hx Asthma: Yes COPD: No Hx Pneumonia: No Hx Sleep Apnea: Yes (high score [place]) - Cardiovascular System Hx Hypertension: Yes Hx Coronary Artery Disease: No Hx Angina: No Hx Pacemaker: No Hx Internal Defibrillator: No Hx Valvular Heart Disease: No Hx Heart Murmur: No Hx Peripheral Vascular Disease: No - Central Nervous System Hx Neuromuscular Disorder: No Hx Seizures: No CVA: No Hx Psychiatric Problems: No - Gastrointestinal Hx Gastroesophageal Reflux Disease: Yes - Endocrine Hx Renal Disease: No Hx End Stage Renal Disease: No Hx Cirrhosis: No Hx Liver Disease: No Hx Insulin Dependent Diabetes: Yes (uncontrolled DM) Hx Hypothyroidism: No Hx Hyperthyroidism: No - Hematic Hx Anemia: No Hx Sickle Cell Disease: No - Other Systems Hx Alcohol Use: No Hx Substance Use: No Hx Cancer: No Hx Obesity: Yes - Additional Comments Anesthesia Medical History Comments: History of Pituitory tumor.Denied previous anesthesia complications.
--- NOTE | 2018-12-03 09:48 | Anesthesia Day of Surgery ---
Anesthesia Day of Surgery - Day of Surgery Patient Examined: Yes Patient H&P Reviewed: Yes Patient is NPO: Yes
--- NOTE | 2018-12-03 09:53 | Post Operative Note ---
Pre-op diagnosis: N/V Post-op diagnosis: other (Esophagitis) Findings: 1. Small hiatal hernia 2. No gastric outlet obstruction or ulcer 3. LA Grade I esophagitis at the lower third (from vomiting) Procedure: EGD Anesthesia: MAC Surgeon: SCAR CHIN Estimated blood loss: none Pathology: none Specimen disposition: other (N/A) Condition: stable Disposition: floor (Recs: 1. Resume diabetic diet. 2. Continue reglan as inpatient; would not d/c with this. 3. Improved control of DM encouraged.)
[2018-12-03] MEDS ORDERED: PROTONIX PO SCH (10:00)
--- NOTE | 2018-12-03 10:43 | Operative Report ---
PROCEDURE PERFORMED: Esophagogastroduodenoscopy. PREOPERATIVE DIAGNOSES: Nausea, vomiting and history of nonsteroidal anti-inflammatory drug use. POSTOPERATIVE DIAGNOSES: Esophagitis and hiatal hernia. ENDOSCOPIST: Cisco Collier MD INSTRUMENT: Olympus video endoscope. MEDICATIONS: MAC anesthesia by Anesthesia Services. COMPLICATIONS: No apparent complications. ESTIMATED BLOOD LOSS: None. SPECIMENS: None. IMPLANTS: None. CONDITION AT COMPLETION: Stable. TECHNIQUE: The patient was informed of the risks and benefits of the procedure. She signed the informed consent to proceed. She was placed in the left lateral decubitus position. The above sedative medications were given. Her vital signs remained stable throughout the procedure. The instrument was advanced from the mouth to the second portion of the duodenum under direct visualization. At that point, the bowel was insufflated and the endoscope was slowly withdrawn. FINDINGS: 1. Normal duodenum. 2. No evidence of gastric outlet obstruction or ulcer. 3. LA grade A esophagitis in the lower third, likely from the patient's vomiting. 4. Otherwise, normal esophagus. RECOMMENDATIONS: 1. Resume diabetic diet. 2. Improved control of diabetes, encourage. 3. Continue Reglan as an inpatient until taking oral food and medications, but I would not discharge the patient home with this. 4. We will sign off. Please call as needed. JOB# [id number] DESTINY/NTS
--- NOTE | 2018-12-03 11:42 | Progress Note ---
Assessment and Plan Assessment and plan: Intractable nausea and vomiting Zofran prn iv fluids GI consulted For EGD today History gastroparesis. Continue Reglan. headache prn Tylenol Acute kidney injury due to vasomotor nephropathy improving continue iv fluid Diabetes mellitus type 2 Insulin for now Hold Metformin Morbid obesity Pt. counseled on diet and exercise. full code status. History Interval history: Patient is 53-year-old female with past medical history of diabetes, hypertension, and GERD presented to emergency room with complaints of nausea and vomiting. States she has been vomiting all day long. Vomited about 10 times. Also has epigastric pain. 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 Her Cr was 1.3. She was diagnosed with SALMA due to intractable nausea, vomiting. Was started on iv fluids admitted. Vomiting has persisted, therefore GI consulted and they recommend EGD in am. No new issues overnight. Hospitalist Physical - Constitutional Vitals: Temp Pulse Resp BP Pulse Ox 98.2 F 77 16 146/88 97 12/03/18 10:00 12/03/18 10:30 12/03/18 10:30 12/03/18 10:30 12/03/18 10:30 General appearance: Present: no acute distress, obese - EENT Eyes: Present: PERRL, EOM intact ENT: hearing intact, clear oral mucosa, dentition normal - Neck Neck: Present: supple, normal ROM - Respiratory Respiratory effort: normal Respiratory: bilateral: CTA - Cardiovascular Rhythm: regular Heart Sounds: Present: S1 & S2. Absent: gallop, rub - Extremities Extremities: no ischemia, No edema, Full ROM - Abdominal General gastrointestinal: soft, non-tender, non-distended, normal bowel sounds - Integumentary Integumentary: Present: clear, warm, dry - Neurologic Neurologic: CNII-XII intact, moves all extremities Results - Labs CBC & Chem 7: 12/02/18 06:03 12/02/18 06:03 Labs: Laboratory Last Values WBC 11.1 K/mm3 (4.5-11.0) H 12/02/18 06:03 RBC 4.24 M/mm3 (3.65-5.03) 12/02/18 06:03 Hgb 10.9 gm/dl (10.1-14.3) 12/02/18 06:03 Hct 34.1 % (30.3-42.9) 12/02/18 06:03 MCV 81 fl (79-97) 12/02/18 06:03 MCH 26 pg (28-32) L 12/02/18 06:03 MCHC 32 % (30-34) 12/02/18 06:03 RDW 13.3 % (13.2-15.2) 12/02/18 06:03 Plt Count 330 K/mm3 (140-440) 12/02/18 06:03 Lymph % (Auto) 11.0 % (13.4-35.0) L 12/01/18 04:40 Centre % (Auto) 9.0 % (0.0-7.3) H 12/01/18 04:40 Eos % (Auto) 0.0 % (0.0-4.3) 12/01/18 04:40 Baso % (Auto) 0.1 % (0.0-1.8) 12/01/18 04:40 Lymph # 1.7 K/mm3 (1.2-5.4) 12/01/18 04:40 Centre # 1.4 K/mm3 (0.0-0.8) H 12/01/18 04:40 Eos # 0.0 K/mm3 (0.0-0.4) 12/01/18 04:40 Baso # 0.0 K/mm3 (0.0-0.1) 12/01/18 04:40 Seg Neutrophils % 79.9 % (40.0-70.0) H 12/01/18 04:40 Seg Neutrophils # 12.7 K/mm3 (1.8-7.7) H 12/01/18 04:40 PT 11.4 Sec. (12.2-14.9) L 11/30/18 Unknown INR 0.85 (0.87-1.13) L 11/30/18 Unknown APTT 24.1 Sec. (24.2-36.6) L 11/30/18 Unknown VBG pH 7.335 (7.320-7.420) 11/30/18 16:15 Sodium 140 mmol/L (137-145) 12/02/18 06:03 Potassium 4.8 mmol/L (3.6-5.0) 12/02/18 06:03 Chloride 100.9 mmol/L (98-107) 12/02/18 06:03 Carbon Dioxide 28 mmol/L (22-30) 12/02/18 06:03 16 mmol/L 12/02/18 06:03 BUN 19 mg/dL (7-17) H 12/02/18 06:03 1.0 mg/dL (0.7-1.2) 12/02/18 06:03 Estimated GFR > 60 ml/min 12/02/18 06:03 19 % 12/02/18 06:03 Glucose 205 mg/dL (65-100) H 12/02/18 06:03 POC Glucose 210 (70-105) H 12/03/18 11:11 10.3 % (4-6) H 11/30/18 18:08 Calcium 9.4 mg/dL (8.4-10.2) 12/02/18 06:03 0.30 mg/dL (0.1-1.2) 12/01/18 04:40 AST 13 units/L (5-40) 12/01/18 04:40 ALT 6 units/L (7-56) L 12/01/18 04:40 75 units/L (35-129) 12/01/18 04:40 7.6 g/dL (6.3-8.2) 12/01/18 04:40 3.9 g/dL (3.9-5) 12/01/18 04:40 1.1 % 12/01/18 04:40 9 units/L (13-60) L 11/30/18 Unknown Yellow (Yellow) 11/30/18 17:14 Clear (Clear) 11/30/18 17:14 5.0 (5.0-7.0) 11/30/18 17:14 Ur Specific [place] 1.018 (1.003-1.030) 11/30/18 17:14 100 mg/dl mg/dL (Negative) 11/30/18 17:14 >=500 mg/dL (Negative) 11/30/18 17:14 20 mg/dL (Negative) 11/30/18 17:14 Neg (Negative) 11/30/18 17:14 Neg (Negative) 11/30/18 17:14 Neg (Negative) 11/30/18 17:14 < 2.0 mg/dL (<2.0) 11/30/18 17:14 Ur Leukocyte Esterase Neg (Negative) 11/30/18 17:14 1.0 /HPF (0.0-6.0) 11/30/18 17:14 2.0 /HPF (0.0-6.0) 11/30/18 17:14 U Epithel Cells (Auto) 1.0 /HPF (0-13.0) 11/30/18 17:14 Hyaline Casts 3 /LPF 11/30/18 17:14 Few /HPF 11/30/18 17:14 Active Medications - Current Medications Current Medications: Generic Name Dose Route Start Last Admin Trade Name Freq PRN Reason Stop Dose Admin Acetaminophen 650 mg 11/30/18 21:19 12/01/18 20:37 Tylenol PO 650 mg Q4H PRN Administration Pain MILD(1-3)/Fever >100.5/CALIXTO Amlodipine Besylate 10 mg 12/01/18 10:00 12/02/18 10:04 Norvasc PO 10 mg DAILY ANAT Administration Dextrose 50 ml 11/30/18 22:21 D50w (25gm) Syringe IV PRN PRN Hypoglycemia Hydralazine HCl 10 mg 11/30/18 22:20 12/03/18 06:45 Apresoline IV 10 mg Q4HR PRN Administration Blood Pressure Sodium Chloride 1,000 mls @ 75 mls/hr 12/01/18 09:00 12/02/18 18:23 Nacl 0.45% 1000 Ml IV 75 mls/hr DIRECT ANAT Administration Sodium Chloride 1,000 mls @ 50 mls/hr 12/03/18 07:00 12/03/18 09:30 Nacl 0.9% 1000 Ml IV 50 mls/hr DIRECT ANAT Administration Insulin Glargine 10 units 11/30/18 22:00 12/03/18 00:43 Lantus SUB-Q 10 units QHS ANAT Administration Insulin Human Lispro 0 unit 12/01/18 00:00 12/03/18 06:54 Humalog SUB-Q 2 unit Q6HR ANAT Administration Protocol Metoclopramide HCl 10 mg 11/30/18 21:19 12/02/18 20:37 Reglan IV 10 mg Q6H PRN Administration Nausea And Vomiting Ondansetron HCl 4 mg 11/30/18 21:19 12/01/18 18:03 Zofran IV 4 mg Q3H PRN Administration Nausea And Vomiting Pantoprazole Sodium 40 mg 12/03/18 10:00 Protonix PO DAILY ANAT Sodium Chloride 10 ml 11/30/18 22:00 12/02/18 21:56 Sodium Chloride Flush Syringe 10 Ml IV 10 ml BID ANAT Administration Sodium Chloride 10 ml 11/30/18 21:19 Sodium Chloride Flush Syringe 10 Ml IV PRN PRN LINE FLUSH Sumatriptan Succinate 25 mg 12/01/18 18:27 12/02/18 20:37 Imitrex PO 25 mg Q2H PRN Administration Migraine Headache
[2018-12-03] MEDS: PROTONIX PO SCH (12:32)
[2018-12-03] MEDS: NORVASC PO SCH (12:34)
[2018-12-03] MEDS: SODIUM CHLORIDE FLUSH SYRINGE 10 ML IV SCH ×2 (12:36→23:12)
--- NOTE | 2018-12-03 13:32 | Post Anesthesia Evaluation ---
- Post Anesthesia Evaluation Patient Participated: Yes Airway Patent: Yes Stable Respiratory Function: Yes Nausea/Vomiting: No Temp > 96.8F: Yes Pain Manageable: Yes Adequeate Hydration: Yes Anesthesia Complications: No Block Receding Appropriately: Not Applicable Patient on Ventilator: No
[2018-12-04] MEDS: HumaLOG SUB-Q SCH ×2 (00:24→06:37)
[2018-12-04] MEDS: NACL 0.9% 1000 ML 1,000 ML IV SCH (05:21)
[2018-12-04] MEDS: IMITREX PO PRN (05:42)
[2018-12-04] MEDS: PROTONIX PO SCH (09:44)
[2018-12-04] MEDS: NORVASC PO SCH (09:44)
[2018-12-04] MEDS: SODIUM CHLORIDE FLUSH SYRINGE 10 ML IV SCH (09:44)
--- NOTE | 2018-12-04 11:05 | Discharge Summary ---
Providers - Providers Date of Admission: 11/30/18 17:28 Date of discharge: 12/04/18 Attending physician: DAVON CHUNG 12/01/18 09:46 Midline [Consult to PICC Line RN] [CONS] Routine Reason For Exam: MIDLINE Type Line:: Midline 12/02/18 12:41 Consult to Physician [CONS] Routine Comment: Consulting Provider: SCAR CHIN Physician Instructions: Reason For Exam: Nausea, vomiting Primary care physician: GRETEL AGUIRRE Hospitalization Condition: Good Pertinent studies: EGD which showed gastritis Hospital course: 53-year-old female presented with irretractable nausea vomiting gastroparesis and dehydration patient had EGD which showed gastritis and nausea was controlled with Zofran and discharged with proton pump inhibitor. Disposition: DC-01 TO HOME OR SELFCARE - Discharge Diagnoses (1) SALMA (acute kidney injury) Status: Acute Comment: Secondary to dehydration resolved with IV fluids. (2) Intractable nausea and vomiting Status: Resolved Qualifiers: Vomiting type: unspecified Qualified Code(s): R11.2 - Nausea with vomiting, unspecified (3) Leukocytosis Status: Acute Qualifiers: Leukocytosis type: unspecified Qualified Code(s): D72.829 - Elevated white blood cell count, unspecified Comment: Secondary to nausea and vomiting resolved. (4) HTN (hypertension) Status: Chronic Qualifiers: Hypertension type: essential hypertension Qualified Code(s): I10 - Essential (primary) hypertension Comment: Issues. Control blood pressure. (5) Diabetes mellitus type 2, uncontrolled Status: Acute Comment: Activities metformin and home medications. (6) Gastritis Status: Acute Comment: ppi (7) Headache Status: Resolved Qualifiers: Headache type: unspecified Headache chronicity pattern: unspecified pattern Intractability: not intractable Qualified Code(s): R51 - Headache (8) Pituitary adenoma Status: Acute Core Measure Documentation - Palliative Care Palliative Care/ Comfort Measures: Not Applicable - Core Measures Any of the following diagnoses?: none Exam - Constitutional Vitals: Temp Pulse Resp BP Pulse Ox 98.3 F 69 19 155/70 98 12/04/18 05:34 12/04/18 09:44 12/04/18 05:34 12/04/18 09:44 12/04/18 05:34 General appearance: Present: no acute distress, well-nourished - EENT Eyes: Present: PERRL ENT: hearing intact, clear oral mucosa - Neck Neck: Present: supple, normal ROM - Respiratory Respiratory effort: normal Respiratory: bilateral: CTA - Cardiovascular Heart Sounds: Present: S1 & S2. Absent: rub, click - Extremities Extremities: pulses symmetrical, No edema Peripheral Pulses: within normal limits - Abdominal General gastrointestinal: Present: soft, non-tender, non-distended, normal bowel sounds Female genitourinary: Present: normal - Integumentary Integumentary: Present: clear, warm, dry - Musculoskeletal Musculoskeletal: gait normal, strength equal bilaterally - Psychiatric Psychiatric: appropriate mood/affect, intact judgment & insight - Neurologic Neurologic: CNII-XII intact, moves all extremities Plan Activity: no restrictions Weight Bearing Status: Full Weight Bearing Diet: low carbohydrate Special Instructions: record blood sugar diary Follow up with: PRIMARY CARE, [Referring] - 2-3 Days Prescriptions: metFORMIN [Glucophage] 500 mg PO BID #60 tablet SUMAtriptan succinate [Imitrex] 25 mg PO Q2H PRN #10 tablet PRN Reason: Migraine Headache Insulin Glargine [Lantus VIAL] 10 units SUB-Q QHS #10 units amLODIPine [Norvasc] 10 mg PO DAILY #30 tablet Pantoprazole [Protonix TAB] 40 mg PO DAILY #30 tablet Ondansetron [Zofran ODT TAB] 4 mg PO Q8HR PRN #20 tab.rapdis PRN Reason: Vomiting
[2018-12-04 11:44] VITALS: BP 133/71
== END 2018-12-04 13:25 | disposition home or self-care (01) | DRG 391 ==
LOC: ED 12:46 → 3A 17:28
PROVIDERS: ADMIT Internal Medicine; ATTEND Internal Medicine
PROC: 0DJ08ZZ Inspection of Upper Intestinal Tract, Via Natural or Artificial Opening Endoscopic (ICD-10-PCS; principal; 2018-12-03)
DX: K29.00 Acute gastritis without bleeding (principal); N17.0 Acute kidney failure with tubular necrosis; K44.9 Diaphragmatic hernia without obstruction or gangrene; E11.65 Type 2 diabetes mellitus with hyperglycemia; E11.22 Type 2 diabetes mellitus with diabetic chronic kidney disease; I12.9 Hypertensive chronic kidney disease with stage 1 through stage 4 chronic kidney disease, or unspecified chronic kidney disease; N18.2 Chronic kidney disease, stage 2 (mild); Z91.040 Latex allergy status; Z91.013 Allergy to seafood; Z91.048 Other nonmedicinal substance allergy status; Z79.4 Long term (current) use of insulin; G43.909 Migraine, unspecified, not intractable, without status migrainosus; Z90.49 Acquired absence of other specified parts of digestive tract; Z82.49 Family history of ischemic heart disease and other diseases of the circulatory system; E66.01 Morbid (severe) obesity due to excess calories; Z68.41 Body mass index [BMI] 40.0-44.9, adult; Z71.3 Dietary counseling and surveillance; K21.0 Gastro-esophageal reflux disease with esophagitis; E86.0 Dehydration; D35.2 Benign neoplasm of pituitary gland
CPT/HCPCS: 36415; 71045; 74019; 74176; 80048; 80053; 81001; 82805; 82962; 83036; 83690; 85014; 85018; 85025; 85027; 85610; 85730; 87040; G0378; C9113; J0360; J1170; J1815; J2405; J2704; J2765; J3010; J7030; J7042

== ENCOUNTER 2018-12-18 13:48 | Inpatient (IN) | payer MEDICAID ==
[2018-12-18] MEDS ORDERED: ONDANSETRON 4 MG/2 ML INJ IV ONE (14:54)
--- NOTE | 2018-12-18 14:55 | Emergency Department Report ---
HPI - General Chief Complaint: Syncope Time Seen by Provider: 12/18/18 14:53 - HPI HPI: Pt is a 53 yo AA female who comes to ER today co of dizziness. She did not check her blood sugar. She also endorses weakness and nausea/vomiting. No SOB or chest pain; no fever or chills EMS reports BG 260 PMH iddm dm migraines obesity htn cataracts glaucoma thyroid disease- new dx menopausal RX she can not tell me- she tells me to look in the chart PSH appy denies cit/etoh/thc mom alive and well dad dec when pt was a baby ED Past Medical Hx - Past Medical History Hx Hypertension: Yes Hx CVA: No Hx Heart Attack/AMI: No Hx Congestive Heart Failure: No Hx Diabetes: Yes Hx Deep Vein Thrombosis: No Hx Pulmonary Embolism: No Hx GERD: No Hx Liver Disease: No Hx Renal Disease: No Hx of Cancer: No Hx Sickle Cell Disease: No Hx Arthritis: Yes Hx Headaches / Migraines: Yes Hx Seizures: No Hx Kidney Stones: No Hx Psychiatric Treatment: No Hx Asthma: Yes Hx COPD: No Hx Tuberculosis: No Hx Dementia: No Hx HIV: No Additional medical history: Glaucoma,thyroid. Cataracts. Migraines. obesity - Surgical History Past Surgical History?: Yes Hx Coronary Stent: No Hx Pacemaker: No Hx Internal Defibrillator: No Hx Cholecystectomy: No Hx Appendectomy: Yes - Family History Family history: no significant - Social History Smoking Status: Never Smoker Substance Use Type: None - Medications Home Medications: Home Medications Medication Instructions Recorded Confirmed Last Taken Type Insulin Regular, Human [HumuLIN R] 10 units SQ QHS 11/30/18 12/18/18 12/17/18 History Insulin Glargine [Lantus VIAL] 10 units SUB-Q QHS #10 units 12/04/18 12/18/18 12/17/18 Rx Ondansetron [Zofran ODT TAB] 4 mg PO Q8HR PRN #20 tab.rapdis 12/04/18 12/18/18 12/17/18 Rx Pantoprazole [Protonix TAB] 40 mg PO DAILY #30 tablet 12/04/18 12/18/18 12/17/18 Rx SUMAtriptan succinate [Imitrex] 25 mg PO Q2H PRN #10 tablet 12/04/18 12/18/18 12/17/18 Rx amLODIPine [Norvasc] 10 mg PO DAILY #30 tablet 12/04/18 12/18/18 12/17/18 Rx metFORMIN [Glucophage] 500 mg PO BID #60 tablet 12/04/18 12/18/18 12/17/18 Rx ED Review of Systems ROS: Stated complaint: SYNCOPY/DEHYDRATION Other details as noted in HPI Comment: All other systems reviewed and negative Physical Exam - Physical Exam Vital Signs: Vital Signs 12/18/18 14:46 Temperature 98.5 F Pulse Rate 87 Respiratory 17 Rate Blood Pressure 87/63 O2 Sat by Pulse 100 Oximetry Physical Exam: alert and oriented weak appearing s1s2 lungs dec in bases abd snt no cva tenderness no fever HR noted to be inc on exam no edema no jvd ED Course Vital Signs 12/18/18 14:46 Temperature 98.5 F Pulse Rate 87 Respiratory 17 Rate Blood Pressure 87/63 O2 Sat by Pulse 100 Oximetry ED Medical Decision Making - Lab Data Result diagrams: 12/18/18 14:58 12/18/18 14:58 - EKG Data -: EKG Interpreted by Me Rate: tachycardia - EKG Data Interpretation: no acute changes - Radiology Data Radiology results: report reviewed, image reviewed - Medical Decision Making Lab Results 12/18/18 12/18/18 12/18/18 Range/Units 14:58 14:58 14:58 WBC 9.3 (4.5-11.0) K/mm3 RBC 4.96 (3.65-5.03) M/mm3 Hgb 12.7 (10.1-14.3) gm/dl Hct 40.2 (30.3-42.9) % MCV 81 (79-97) fl MCH 26 L (28-32) pg MCHC 32 (30-34) % RDW 13.8 (13.2-15.2) % Plt Count 419 (140-440) K/mm3 Lymph % (Auto) 14.1 (13.4-35.0) % [place] % (Auto) 6.8 (0.0-7.3) % Eos % (Auto) 2.1 (0.0-4.3) % Baso % (Auto) 0.6 (0.0-1.8) % Lymph # 1.3 (1.2-5.4) K/mm3 [place] # 0.6 (0.0-0.8) K/mm3 Eos # 0.2 (0.0-0.4) K/mm3 Baso # 0.1 (0.0-0.1) K/mm3 Seg Neutrophils % 76.4 H (40.0-70.0) % Seg Neutrophils # 7.1 (1.8-7.7) K/mm3 PT 13.3 (12.2-14.9) Sec. INR 1.04 (0.87-1.13) APTT 27.6 (24.2-36.6) Sec. VBG pH (7.320-7.420) Sodium 143 (137-145) mmol/L Potassium 4.7 (3.6-5.0) mmol/L Chloride 98.2 (98-107) mmol/L Carbon Dioxide 31 H (22-30) mmol/L Anion Gap 19 mmol/L BUN 11 (7-17) mg/dL Creatinine 1.7 H (0.7-1.2) mg/dL Estimated GFR 38 ml/min BUN/Creatinine Ratio 6 % Glucose 277 H (65-100) mg/dL Calcium 9.1 (8.4-10.2) mg/dL Magnesium (1.7-2.3) mg/dL Total Bilirubin 0.40 (0.1-1.2) mg/dL AST 23 (5-40) units/L ALT 31 (7-56) units/L Alkaline Phosphatase 61 (35-129) units/L Troponin T < 0.010 (0.00-0.029) ng/mL Total Protein 7.6 (6.3-8.2) g/dL Albumin 4.0 (3.9-5) g/dL Albumin/Globulin Ratio 1.1 % TSH (0.270-4.200) mlU/mL Thyroxine (T4) (4.0-12.0) ug/dL 12/18/18 12/18/18 12/18/18 Range/Units 14:58 16:00 16:00 WBC (4.5-11.0) K/mm3 RBC (3.65-5.03) M/mm3 Hgb (10.1-14.3) gm/dl Hct (30.3-42.9) % MCV (79-97) fl MCH (28-32) pg MCHC (30-34) % RDW (13.2-15.2) % Plt Count (140-440) K/mm3 Lymph % (Auto) (13.4-35.0) % [place] % (Auto) (0.0-7.3) % Eos % (Auto) (0.0-4.3) % Baso % (Auto) (0.0-1.8) % Lymph # (1.2-5.4) K/mm3 [place] # (0.0-0.8) K/mm3 Eos # (0.0-0.4) K/mm3 Baso # (0.0-0.1) K/mm3 Seg Neutrophils % (40.0-70.0) % Seg Neutrophils # (1.8-7.7) K/mm3 PT (12.2-14.9) Sec. INR (0.87-1.13) APTT (24.2-36.6) Sec. VBG pH (7.320-7.420) Sodium (137-145) mmol/L Potassium (3.6-5.0) mmol/L Chloride (98-107) mmol/L Carbon Dioxide (22-30) mmol/L Anion Gap mmol/L BUN (7-17) mg/dL Creatinine (0.7-1.2) mg/dL Estimated GFR ml/min BUN/Creatinine Ratio % Glucose (65-100) mg/dL Calcium (8.4-10.2) mg/dL Magnesium 1.40 L (1.7-2.3) mg/dL Total Bilirubin (0.1-1.2) mg/dL AST (5-40) units/L ALT (7-56) units/L Alkaline Phosphatase (35-129) units/L Troponin T (0.00-0.029) ng/mL Total Protein (6.3-8.2) g/dL Albumin (3.9-5) g/dL Albumin/Globulin Ratio % TSH 0.032 L (0.270-4.200) mlU/mL Thyroxine (T4) 6.8 (4.0-12.0) ug/dL 12/18/18 Range/Units 17:01 WBC (4.5-11.0) K/mm3 RBC (3.65-5.03) M/mm3 Hgb (10.1-14.3) gm/dl Hct (30.3-42.9) % MCV (79-97) fl MCH (28-32) pg MCHC (30-34) % RDW (13.2-15.2) % Plt Count (140-440) K/mm3 Lymph % (Auto) (13.4-35.0) % [place] % (Auto) (0.0-7.3) % Eos % (Auto) (0.0-4.3) % Baso % (Auto) (0.0-1.8) % Lymph # (1.2-5.4) K/mm3 [place] # (0.0-0.8) K/mm3 Eos # (0.0-0.4) K/mm3 Baso # (0.0-0.1) K/mm3 Seg Neutrophils % (40.0-70.0) % Seg Neutrophils # (1.8-7.7) K/mm3 PT (12.2-14.9) Sec. INR (0.87-1.13) APTT (24.2-36.6) Sec. VBG pH 7.363 (7.320-7.420) Sodium (137-145) mmol/L Potassium (3.6-5.0) mmol/L Chloride (98-107) mmol/L Carbon Dioxide (22-30) mmol/L Anion Gap mmol/L BUN (7-17) mg/dL Creatinine (0.7-1.2) mg/dL Estimated GFR ml/min BUN/Creatinine Ratio % Glucose (65-100) mg/dL Calcium (8.4-10.2) mg/dL Magnesium (1.7-2.3) mg/dL Total Bilirubin (0.1-1.2) mg/dL AST (5-40) units/L ALT (7-56) units/L Alkaline Phosphatase (35-129) units/L Troponin T (0.00-0.029) ng/mL Total Protein (6.3-8.2) g/dL Albumin (3.9-5) g/dL Albumin/Globulin Ratio % TSH (0.270-4.200) mlU/mL Thyroxine (T4) (4.0-12.0) ug/dL Vital Signs 12/18/18 12/18/18 12/18/18 14:46 15:11 15:40 Temperature 98.5 F 98.7 F Pulse Rate 87 80 112 H Respiratory 17 18 18 Rate Blood Pressure 87/63 Blood Pressure 113/53 94/67 [Right] O2 Sat by Pulse 100 100 97 Oximetry labs noted ua pending chest xray pending Mg to be replaced- 4GM IV for Mg 1.4 Pt is going in and out of PAF with rate to 120; with rare to occasional PVC's 12lead noted- afib trop neg Glucose to be treated- 5 U reg hum insulin with Q1h blood glucose; pt npo pt has gotten 2L NS prior to my seeing the pt; prior to that fluid pt did have hypotension with SBP 80; no tachycardia and no fever at that time zofran/haldol for nausea/vomiting Report to Dr Palmer - pt to be admitted for new onset afib RVR in setting hypoMg and hyperglycemia with nausea/vomiting - Differential Diagnosis ro DKA/electrolyte derangements/ infection Critical care attestation.: If time is entered above; I have spent that time in minutes in the direct care of this critically ill patient, excluding procedure time. ED Disposition Clinical Impression: Paroxysmal A-fib, SALMA (acute kidney injury), Hypomagnesemia, Uncontrolled type 2 DM with hyperosmolar nonketotic hyperglycemia, Nausea & vomiting Disposition: - OP ADMIT IP TO THIS HOSP Is pt being admited?: Yes Does the pt Need Aspirin: No Condition: Stable Time of Disposition: 19:03
[2018-12-18 15:18] LABS: Basophils # (Auto) 0.1 K/mm3 (0.0-0.1); Basophils % (Auto) 0.6 % (0.0-1.8); Eosinophils # (Auto) 0.2 K/mm3 (0.0-0.4); Eosinophils % (Auto) 2.1 % (0.0-4.3); Hematocrit 40.2 % (30.3-42.9); Hemoglobin 12.7 gm/dl (10.1-14.3); Lymphocytes # (Auto) 1.3 K/mm3 (1.2-5.4); Lymphocytes % (Auto) 14.1 % (13.4-35.0); Mean Corpuscular HGB Conc 32 % (30-34); Mean Corpuscular Volume 81 fl (79-97); Monocytes # (Auto) 0.6 K/mm3 (0.0-0.8); Monocytes % (Auto) 6.8 % (0.0-7.3); Platelet Count 419 K/mm3 (140-440); Red Blood Count 4.96 M/mm3 (3.65-5.03); Red Cell Distribution Width 13.8 % (13.2-15.2)
[2018-12-18 15:30] LABS: INR 1.04 (0.87-1.13)
[2018-12-18 15:32] LABS: Partial Thromboplastin Time 27.6 Sec. (24.2-36.6)
[2018-12-18 15:41] LABS: Alanine Aminotransferase 31 units/L (7-56); BUN/Creatinine Ratio 6; Blood Urea Nitrogen 11 mg/dL (7-17); Calcium 9.1 mg/dL (8.4-10.2); Hemolysis Index 6
[2018-12-18] MEDS ORDERED: HALOPERIDOL LACTATE 5 MG/1 ML INJ IV ONE (15:49)
[2018-12-18] MEDS ORDERED: MAGNESIUM SULFATE 2 GM/50 ML BAG IV ONE ×2 (16:51→16:52)
[2018-12-18] MEDS ORDERED: INSULIN REGULAR, HUMAN 100 UNITS/1 ML IV ONE (16:53)
--- NOTE | 2018-12-18 16:58 | XRay Report ---
CHEST 1 VIEW INDICATION: WEAK. COMPARISON: 12/01/2018. FINDINGS: Support devices: None. Heart: Within normal limits. Lungs/Pleura: No acute air space or interstitial disease. Additional findings: None. IMPRESSION: Negative chest. Signer Name: Fadi Sneed MD Signed: 12/18/2018 4:53 PM Workstation Name: [id number]
--- NOTE | 2018-12-18 22:57 | History and Physical Report ---
History of Present Illness Date of examination: 12/18/18 History of present illness: 53-year-old woman with a history of hypertension, diabetes, glaucoma comes emergency room with complaint of feeling weak, dehydrated. She has been having nausea vomiting 2 days and state that she had 3 episodes of syncope yesterday lasting briefly. I'll been able to eat. She was recently seen by her doctor for thyroid problems she has to follow-up. Emergency room she was noted to be in paroxysmal A. fib which converted to normal sinus eview Of Systems: Constitutional: no weight loss, fever, chills Ears, eyes, nose, mouth and throat: no nasal congestion, no nasal discharge, no sinus pressure, blurry vision, diplopia Neck: No neck pain or rigidity. Cardiovascular: No palpitations, chest pain Respiratory: No shortness of breath, cough Gastrointestinal: No hematochezia, abdominal pain Genitourinary : no dysuria, frequency , hematuria Musculoskeletal: no muscle ache , joint pain Integumentary: no rash, no pruritis Neurological: no parathesias, focal weakness Endocrine: no cold or heat intolerance, no polyuria or polydipsia Hematologic/Lymphatic: no easy bruising, no easy bleeding, no gland swelling Allergic/Immunologic: no urticaria, no angioedema. PAST MEDICAL HISTORY:hypertension, diabetes, glaucoma PAST SURGICAL HISTORY:none FAMILY HISTORY:hypertension, diabetes SOCIAL HISTORY: Denies tobacco, drugs, alcohol Medications and Allergies Allergies Allergy/AdvReac Type Severity Reaction Status Date / Time Latex, Natural Rubber Allergy Itching Verified 11/30/18 12:53 shellfish derived Allergy Rash Verified 11/30/18 12:53 Home Medications Medication Instructions Recorded Confirmed Last Taken Type Insulin Regular, Human [HumuLIN R] 10 units SQ QHS 11/30/18 12/18/18 12/17/18 History Insulin Glargine [Lantus VIAL] 10 units SUB-Q QHS #10 units 12/04/18 12/18/18 12/17/18 Rx Ondansetron [Zofran ODT TAB] 4 mg PO Q8HR PRN #20 tab.rapdis 12/04/18 12/18/18 12/17/18 Rx SUMAtriptan succinate [Imitrex] 25 mg PO Q2H PRN #10 tablet 12/04/18 12/18/18 12/17/18 Rx metFORMIN [Glucophage] 500 mg PO BID #60 tablet 12/04/18 12/18/18 12/17/18 Rx Apixaban [Eliquis] 5 mg PO Q12HR #60 tablet 12/21/18 Unknown Rx Insulin NPH Hum/Reg Insulin Hm 15 unit SQ BID #5 insuln.pen 12/21/18 Unknown Rx [Novolin 70-30 Flexpen] Metoprolol [Lopressor TAB] 25 mg PO BID #60 tablet 12/21/18 Unknown Rx Pantoprazole [Protonix TAB] 40 mg PO DAILY #30 tablet 12/21/18 Unknown Rx amLODIPine [Norvasc] 10 mg PO DAILY #30 tablet 12/21/18 Unknown Rx oxyCODONE /ACETAMINOPHEN [Percocet 1 tab PO Q6H PRN #12 tablet 12/21/18 Unknown Rx 5/325 mg] Exam - Physical Exam Narrative exam: General Apperance: The patient sitting in bed no acute distress HEENT: Normocephalic, atraumatic. Pupils equally round and reactive to light, extraocular movement intact, and no sclericterus or JVD or thyromegaly or nodul e. Neck supple, no carotid bruit, mucous membranes moist, no exudate or erythema Heart: S1-S2, regular is rhythm Lungs: Clear to auscultation bilaterally, breathing comfortable Abdomen: Positive bowel sounds, soft, nontender, nondistended, no organomegaly Extremities: No edema cyanosis clubbing Skin: no rash, nodule, warm and dry Neuro:CN 2 -12 intact, motor/sensory intact, speech is fluent - Constitutional Vitals: Temp Pulse Resp BP Pulse Ox 97.7 F 93 H 17 120/72 97 12/18/18 19:30 12/18/18 22:30 12/18/18 22:30 12/18/18 22:30 12/18/18 22:30 Results - Labs CBC & Chem 7: 12/21/18 03:45 12/20/18 12:20 Labs: Abnormal lab results 12/18/18 12/18/18 12/18/18 Range/Units 14:58 14:58 14:58 MCH 26 L (28-32) pg Seg Neutrophils % 76.4 H (40.0-70.0) % Carbon Dioxide 31 H (22-30) mmol/L Creatinine 1.7 H (0.7-1.2) mg/dL Glucose 277 H (65-100) mg/dL POC Glucose (70-105) Magnesium 1.40 L (1.7-2.3) mg/dL TSH (0.270-4.200) mlU/mL 12/18/18 12/18/18 12/18/18 Range/Units 16:00 18:27 21:52 MCH (28-32) pg Seg Neutrophils % (40.0-70.0) % Carbon Dioxide (22-30) mmol/L Creatinine (0.7-1.2) mg/dL Glucose (65-100) mg/dL POC Glucose 251 H 204 H (70-105) Magnesium (1.7-2.3) mg/dL TSH 0.032 L (0.270-4.200) mlU/mL - Imaging and Cardiology Chest x-ray: report reviewed Assessment and Plan Assessment Paroxysmal A. fib Acute renal insufficiency Diabetes Hypertension Dehydration Plan Admit to medicine Start IV fluids, check cardiac enzymes, dimer, echo consult cardiology Fingersticks initiate insulin sliding scale Addendum D-dimer positive, Full dose of Lovenox Check V/Q, initiate DVT dose Lovenox if V/Q negative
[2018-12-18] MEDS ORDERED: oxyCODONE /ACETAMINOPHEN 5-325MG TAB PO ONE (23:16)
[2018-12-19] MEDS ORDERED: ACETAMINOPHEN 325 MG TAB PO PRN (00:58)
[2018-12-19] MEDS ORDERED: ONDANSETRON 4 MG/2 ML INJ IV PRN (00:58)
[2018-12-19] MEDS ORDERED: ENOXAPARIN 100 MG/1 ML INJ SUB-Q ONE (01:03)
[2018-12-19] MEDS ORDERED: SODIUM CHLORIDE 0.9% 1000 ML 1,000 ML IV SCH (02:00)
[2018-12-19 02:14] LABS: Creatine Kinase MB 1.3 ng/mL (0.0-4.0)
[2018-12-19 05:20] LABS: Basophils # (Auto) 0.1 K/mm3 (0.0-0.1); Basophils % (Auto) 0.8 % (0.0-1.8); Eosinophils # (Auto) 0.2 K/mm3 (0.0-0.4); Eosinophils % (Auto) 1.6 % (0.0-4.3); Hematocrit 36.4 % (30.3-42.9); Hemoglobin 11.6 gm/dl (10.1-14.3); Lymphocytes # (Auto) 1.8 K/mm3 (1.2-5.4); Lymphocytes % (Auto) 17.8 % (13.4-35.0); Mean Corpuscular HGB Conc 32 % (30-34); Mean Corpuscular Volume 81 fl (79-97); Monocytes # (Auto) 0.6 K/mm3 (0.0-0.8); Monocytes % (Auto) 5.7 % (0.0-7.3); Platelet Count 388 K/mm3 (140-440); Red Blood Count 4.48 M/mm3 (3.65-5.03); Red Cell Distribution Width 14.2 % (13.2-15.2)
[2018-12-19] MEDS: oxyCODONE /ACETAMINOPHEN 5-325MG TAB PO PRN (05:27)
[2018-12-19 05:45] LABS: Calcium 8.9 mg/dL (8.4-10.2)
[2018-12-19] MEDS ORDERED: DEXTROSE 50% IN WATER (25GM) 50 ML SYRINGE IV PRN (05:48)
[2018-12-19 07:39] LABS: Creatine Kinase MB 2.7 ng/mL (0.0-4.0)
[2018-12-19] MEDS: INSULIN LISPRO 100 UNIT/ML SUB-Q SCH ×3 (08:10→17:08)
--- NOTE | 2018-12-19 09:29 | Consultation ---
History of Present Illness - Reason for Consult acute renal failure - History of Present Illness 53 year old with medical history significant for HTN, DM type II uncontrolled, admitted with complaints of nausea, vomiting and diarrhoea for several days prior to admission . Patient has a remote history of NSAID use. Denies any orthopnea or PND. She admits to decreased urine output. Denies any fevers or chi lls. She denies any dysuria or frequent urination. She denies any shortness of breath or exertional dyspnea. She had multiple episodes of syncope before she arrived She takes metformin as well. Medications and Allergies Allergies Allergy/AdvReac Type Severity Reaction Status Date / Time Latex, Natural Rubber Allergy Itching Verified 11/30/18 12:53 shellfish derived Allergy Rash Verified 11/30/18 12:53 Home Medications Medication Instructions Recorded Confirmed Last Taken Type Insulin Regular, Human [HumuLIN R] 10 units SQ QHS 11/30/18 12/18/18 12/17/18 History Insulin Glargine [Lantus VIAL] 10 units SUB-Q QHS #10 units 12/04/18 12/18/18 12/17/18 Rx Ondansetron [Zofran ODT TAB] 4 mg PO Q8HR PRN #20 tab.rapdis 12/04/18 12/18/18 12/17/18 Rx Pantoprazole [Protonix TAB] 40 mg PO DAILY #30 tablet 12/04/18 12/18/18 12/17/18 Rx SUMAtriptan succinate [Imitrex] 25 mg PO Q2H PRN #10 tablet 12/04/18 12/18/18 12/17/18 Rx amLODIPine [Norvasc] 10 mg PO DAILY #30 tablet 12/04/18 12/18/18 12/17/18 Rx metFORMIN [Glucophage] 500 mg PO BID #60 tablet 12/04/18 12/18/18 12/17/18 Rx Active Meds: Active Medications Acetaminophen (Tylenol) 650 mg PO Q4H PRN PRN Reason: Pain MILD(1-3)/Fever >100.5/CALIXTO Dextrose (D50w (25gm) Syringe) 50 ml IV PRN PRN PRN Reason: Hypoglycemia Sodium Chloride (Nacl 0.9% 1000 Ml) 1,000 mls @ 150 mls/hr IV DIRECT ANAT Insulin Human Lispro (Humalog) 0 unit SUB-Q ACHS ANAT; Protocol Last Admin: 12/19/18 08:10 Dose: Not Given Documented by: Ondansetron HCl (Zofran) 4 mg IV Q8H PRN PRN Reason: Nausea And Vomiting Oxycodone/Acetaminophen (Percocet 5/325) 1 tab PO Q6H PRN PRN Reason: Pain, Moderate (4-6) Last Admin: 12/19/18 05:27 Dose: 1 tab Documented by: Sodium Chloride (Sodium Chloride Flush Syringe 10 Ml) 10 ml IV BID ANAT Sodium Chloride (Sodium Chloride Flush Syringe 10 Ml) 10 ml IV PRN PRN PRN Reason: LINE FLUSH Review of Systems Constitutional: no weight loss, no weight gain, no fever, no chills, no fatigue, no weakness Ears, nose, mouth and throat: no deferred, no ear discharge Cardiovascular: no chest pain, no orthopnea, no rapid/irregular heart beat, no edema, no lightheadedness, no shortness of breath Respiratory: no cough, no cough with sputum Gastrointestinal: nausea, vomiting, diarrhea, no abdominal pain Rectal: no pain, no bleeding Musculoskeletal: no neck stiffness, no redness of joints Integumentary: no deferred Neurological: syncope, no head injury Psychiatric: no anxiety Endocrine: no cold intolerance Hematologic/Lymphatic: no easy bruising Exam - Vital Signs Vital signs: Vital Signs Pulse Ox 100 12/18/18 14:38 - General Appearance General appearance: well-developed, well-nourished EENT: ATNC, PERRL Neck: Present: neck supple Respiratory: Clear to Ascultation Heart: regular, S1S2 Gastrointestinal: Present: normal, normoactive bowel sounds Integumentary: no rash Neurologic: alert and oriented x3, CN 3-12 intact Psychiatric: mood/affect appropriate Results - Lab Results 12/19/18 11:06 12/19/18 04:24 Most recent lab results Calcium 8.9 mg/dL (8.4-10.2) 12/19/18 04:24 Magnesium 1.40 mg/dL (1.7-2.3) L 12/18/18 14:58 - Image Kidney/bladder ultrasound: other (I reviewed CXR without marleen edema. ) Assessment and Plan - Patient Problems (1) SALMA (acute kidney injury) Current Visit: Yes Status: Acute Plan to address problem: Acute kidney injury baseline creatinine: 1.0mg/dl current creatinine : 1.8mg/dl Will give 500cc saline bolus. obtain a UA obtain renal US Complex cystic mass in right kidney on CT Normal saline infusion@150cc/hr Recheck RFP. (2) Paroxysmal A-fib Current Visit: Yes Status: Acute Plan to address problem: Paroxysmal Afib - Previous EKG showed afib on arrival -continue telemetry -cardiology following -Check electrolytes Mg >2, K : about 4meq/L (3) HTN (hypertension) Current Visit: No Status: Chronic Qualifiers: Hypertension type: essential hypertension Qualified Code(s): I10 - Essential (primary) hypertension Plan to address problem: HTN: controlled avoid hypotension. (4) Diabetes mellitus type 2, uncontrolled Current Visit: Yes Status: Chronic Plan to address problem: DM type II :uncontrolled Ensure Medications Monitior fingersticks Hold Metformin given SALMA. (5) Renal mass, right Current Visit: No Status: Acute Plan to address problem: Complex cystic lesion on right kidney on previous ultrasound obtain renal US recommend urology evaluation and follow up of complex cystic lesion.
[2018-12-19] MEDS ORDERED: ENOXAPARIN 40 MG/0.4 ML INJ SUB-Q SCH (10:00)
[2018-12-19] MEDS ORDERED: ENOXAPARIN 30 MG/0.3 ML INJ SUB-Q SCH (10:00)
--- NOTE | 2018-12-19 10:06 | Nuclear Medicine Report ---
VENTILATION PERFUSION PULMONARY SCINTIGRAPHY HISTORY: Evaluate for pulmonary embolus COMPARISON: 12/18/2018 chest radiograph. TECHNIQUE: Radiopharmaceutical was inhaled. Tc-99m-MAA was then injected. Ventilation and perfusion images were acquired. RADIOPHARMACEUTICAL: 15.6 mCi of Xe-133 inhaled 3.9 mCi of Tc-99m-MAA injected FINDINGS: VENTILATION: No significant air trapping or defect. PERFUSION: No significant segmental or non-segmental defect. Additional Findings: None. IMPRESSION: 1. Low probability for pulmonary embolism. Signer Name: Lonnie Farris Jr, MD Signed: 12/19/2018 10:02 AM Workstation Name: [id number]
[2018-12-19] MEDS: SODIUM CHLORIDE 0.9% 1000 ML 1,000 ML IV SCH (10:12)
--- NOTE | 2018-12-19 10:37 | Consultation ---
History of Present Illness Consult date: 12/19/18 Requesting physician: MICHELE AMARAL Consult reason: atrial fibrillation History of present illness: The pt is a 53-year-old female with a history of hypertension, diabetes, HLP, glaucoma. She is previously unknown to our practice. She presented with c/o weakness, lethargy, nausea, vomiting, diarrhea for 2 days and 3 episodes of syncope on the day of arrival. She states that yesterday morning, she was sitting on her toilet when she briefly lost consciousness. Her daughter was home with her and was able to help her up and walk with her to her bed. She lost consciousness again when she reached her bed. Pt went to sleep for a while and then got up and got in the bathtub. Pt reports that she passed out again while sitting in the bath tub. Her daughter then called EMS and EMS had to assist pt in getting out of bath tub and into the ambulance. Pt denies any occurrence of chest pain, palpitations, n/v, diaphoresis or dizziness. Pt was noted to be in paroxysmal atrial fibrillation with RVR in ED and thus cardiology has been consulted. On evaluation, pt is currently in SR, no AFib noted since initiation of remote telemetry. Pt denies any prior cardiac issues, including CAD, AMI, HF or arrhythmia. Past History Past Medical History: diabetes, hypertension, hyperlipidemia Past Surgical History: appendectomy Social history: lives with family. denies: smoking, alcohol abuse, prescription drug abuse Medications and Allergies Allergies Allergy/AdvReac Type Severity Reaction Status Date / Time Latex, Natural Rubber Allergy Itching Verified 11/30/18 12:53 shellfish derived Allergy Rash Verified 11/30/18 12:53 Home Medications Medication Instructions Recorded Confirmed Last Taken Type Insulin Regular, Human [HumuLIN R] 10 units SQ QHS 11/30/18 12/18/18 12/17/18 History Insulin Glargine [Lantus VIAL] 10 units SUB-Q QHS #10 units 12/04/18 12/18/18 12/17/18 Rx Ondansetron [Zofran ODT TAB] 4 mg PO Q8HR PRN #20 tab.rapdis 12/04/18 12/18/18 12/17/18 Rx Pantoprazole [Protonix TAB] 40 mg PO DAILY #30 tablet 12/04/18 12/18/18 12/17/18 Rx SUMAtriptan succinate [Imitrex] 25 mg PO Q2H PRN #10 tablet 12/04/18 12/18/18 12/17/18 Rx amLODIPine [Norvasc] 10 mg PO DAILY #30 tablet 12/04/18 12/18/18 12/17/18 Rx metFORMIN [Glucophage] 500 mg PO BID #60 tablet 12/04/18 12/18/18 12/17/18 Rx Active Meds: Active Medications Acetaminophen (Tylenol) 650 mg PO Q4H PRN PRN Reason: Pain MILD(1-3)/Fever >100.5/CALIXTO Dextrose (D50w (25gm) Syringe) 50 ml IV PRN PRN PRN Reason: Hypoglycemia Sodium Chloride (Nacl 0.9% 1000 Ml) 1,000 mls @ 150 mls/hr IV DIRECT ANAT Last Admin: 12/19/18 10:12 Dose: 150 mls/hr Documented by: Insulin Human Lispro (Humalog) 0 unit SUB-Q ACHS [facility]; Protocol Last Admin: 12/19/18 08:10 Dose: Not Given Documented by: Ondansetron HCl (Zofran) 4 mg IV Q8H PRN PRN Reason: Nausea And Vomiting Oxycodone/Acetaminophen (Percocet 5/325) 1 tab PO Q6H PRN PRN Reason: Pain, Moderate (4-6) Last Admin: 12/19/18 05:27 Dose: 1 tab Documented by: Sodium Chloride (Sodium Chloride Flush Syringe 10 Ml) 10 ml IV BID [facility] Last Admin: 12/19/18 10:18 Dose: Not Given Documented by: Sodium Chloride (Sodium Chloride Flush Syringe 10 Ml) 10 ml IV PRN PRN PRN Reason: LINE FLUSH Review of Systems Constitutional: chills, no weight loss, no weight gain Ears, nose, mouth and throat: no ear pain, no nose pain, no sinus pressure, no sinus pain Cardiovascular: syncope, high blood pressure, no chest pain, no orthopnea, no palpitations, no rapid/irregular heart beat, no edema, no lightheadedness, no shortness of breath, no dyspnea on exertion Respiratory: no cough, no shortness of breath, no dyspnea on exertion, no congestion, no wheezing, no pain on inspiration Gastrointestinal: nausea, vomiting, diarrhea, no abdominal pain, no constipation, no hematemesis, no coffee ground emesis, no BRBPR, no melena, no hematochezia Genitourinary Female: no pelvic pain, no flank pain, no dysuria, no urinary frequency, no urgency Musculoskeletal: no neck stiffness, no neck pain, no shooting arm pain, no arm numbness/tingling, no low back pain, no shooting leg pain Integumentary: no rash, no pruritis, no redness, no sores, no wounds Neurological: syncope, no head injury, no paralysis, no weakness, no parathesias, no numbness, no tingling, no seizures Psychiatric: no anxiety Endocrine: no cold intolerance, no heat intolerance Hematologic/Lymphatic: no easy bruising, no easy bleeding Allergic/Immunologic: no urticaria, no wheezing Physical Examination Vital Signs Pulse Ox 100 12/18/18 14:38 General appearance: no acute distress HEENT: Positive: PERRL, Normocephaly, Mucus Membranes Moist Neck: Positive: neck supple, trachea midline Cardiac: Positive: Reg Rate and Rhythm, S1/S2 Lungs: Positive: Decreased Breath Sounds Neuro: Positive: Grossly Intact Abdomen: Positive: Soft. Negative: Tender Skin: Negative: Rash Musculoskeletal: No Pain Extremities: Absent: edema Results 12/19/18 04:24 12/19/18 04:24 Cardiac Enzymes 12/18/18 12/19/18 12/19/18 Range/Units 14:58 01:38 06:56 AST 23 (5-40) units/L CK-MB (CK-2) 1.3 2.7 (0.0-4.0) ng/mL Coagulation 12/18/18 Range/Units 14:58 PT 13.3 (12.2-14.9) Sec. INR 1.04 (0.87-1.13) APTT 27.6 (24.2-36.6) Sec. CBC 12/18/18 12/19/18 Range/Units 14:58 04:24 WBC 9.3 10.4 (4.5-11.0) K/mm3 RBC 4.96 4.48 (3.65-5.03) M/mm3 Hgb 12.7 11.6 (10.1-14.3) gm/dl Hct 40.2 36.4 (30.3-42.9) % Plt Count 419 388 (140-440) K/mm3 Lymph # 1.3 1.8 (1.2-5.4) K/mm3 Daniels # 0.6 0.6 (0.0-0.8) K/mm3 Eos # 0.2 0.2 (0.0-0.4) K/mm3 Baso # 0.1 0.1 (0.0-0.1) K/mm3 Comprehensive Metabolic Panel 12/18/18 12/19/18 Range/Units 14:58 04:24 Sodium 143 142 (137-145) mmol/L Potassium 4.7 5.0 (3.6-5.0) mmol/L Chloride 98.2 95.3 L (98-107) mmol/L Carbon Dioxide 31 H 28 (22-30) mmol/L BUN 11 13 (7-17) mg/dL Creatinine 1.7 H 1.8 H (0.7-1.2) mg/dL Glucose 277 H 229 H (65-100) mg/dL Calcium 9.1 8.9 (8.4-10.2) mg/dL AST 23 (5-40) units/L ALT 31 (7-56) units/L Alkaline Phosphatase 61 (35-129) units/L Total Protein 7.6 (6.3-8.2) g/dL Albumin 4.0 (3.9-5) g/dL - Imaging and Cardiology Echo: pending EKG: report reviewed, image reviewed EKG interpretations - Telemetry EKG Rhythm: Sinus Rhythm - EKG Sinus rhythms and dysrhythmias: sinus rhythm Assessment and Plan Paroxysmal atrial fibrillation with RVR Pt was noted to be in paroxysmal atrial fibrillation with RVR in ED. On evaluation, pt is currently in SR, no AFib noted since initiation of remote telemetry. New diagnosis. Suspect precipitated by n/v/d, dehydration, hypomag. Initiate lopressor and titrate as tolerated. TSH noted to be low - further eval/management per primary. Obtain echo. Initiate heparin gtt and plan for conversion to NOAC prior to discharge. Can consider stress test as early as 12/21/2018 as pt underwent V/Q scan this morning. Syncope Pt reports 3 episodes yesterday. Suspect r/t n/v/d, dehydration. Consider head CT per primary. Obtain echo. Can consider stress test as early as 12/21/2018 as pt underwent V/Q scan this morning. Elevated DDimer V/Q scan low prob for PE. Nausea, vomiting and diarrhea Currently improved, pt tolerating PO intake. SALMA / dehydration Nephrology following. IVF initiated. Hypomagnesemia Repleted. F/u Mg level today. HTN HLP DM with hyperglycemia Obesity The patient has been seen in conjunction with Dr. Sloan who agrees with the assessment and plan of care.
[2018-12-19] MEDS: METOPROLOL TARTRATE 25 MG TAB PO SCH ×2 (11:21→22:43)
[2018-12-19 11:52] LABS: Hematocrit 33.1 % (30.3-42.9); Hemoglobin 10.7 gm/dl (10.1-14.3)
[2018-12-19 12:05] LABS: INR 1.05 (0.87-1.13); Partial Thromboplastin Time 27.4 Sec. (24.2-36.6)
[2018-12-19] MEDS ORDERED: SODIUM CHLORIDE 0.9% 500 ML 500 ML IV ONE (12:30)
[2018-12-19] MEDS ORDERED: HEPARIN/ 0.45% NACL DRIP 25,000 UNIT/500 ML BAG IV SCH (13:00)
[2018-12-19] MEDS: FLUDROCORTISONE 0.1 MG TAB PO SCH (13:31)
--- NOTE | 2018-12-19 16:29 | Progress Note ---
Assessment and Plan Assessment and plan: 53-year-old woman with a history of hypertension, diabetes, glaucoma comes emergency room with complaint of feeling weak, dehydrated. She has been having nausea vomiting 2 days and state that she had 3 episodes of syncope yesterday lasting briefly. I'll been able to eat. She was recently seen by her doctor for thyroid problems she has to follow-up. Emergency room she was noted to be in paroxysmal A. fib which converted to normal sinus Paroxysmal Afib with RVR Acute Gastroenteritis with intractable nausea and vomiting-Resolved Near syncope X3 Subclinical Hypothyrodisim Acute Kidney Injury secondary to vasomotor Nephropathy Diabetes Hypertension Dehydration Elevated D.Dimer-v/q Scan shows low probablity Hyperlipidemia Morbid obesity Plan Continue supportive care Cardiology input noted, continue Heparin gtt and Metoprolol Echo pending CT head to eval for any centeral origin of syncope Nephrology consult Fingersticks initiate insulin sliding scale dvt/gi PROPHY Dispo based on Renal recovery and Cardiology recommendation. Plan discussed with the patient History Interval history: Patient seen and examined reports no further nausea, vomiting or Diarrhea. Feels lethargic Hospitalist Physical - Constitutional Vitals: Temp Pulse Resp BP Pulse Ox 98.0 F 87 18 125/71 99 12/19/18 07:29 12/19/18 10:31 12/19/18 07:29 12/19/18 07:29 12/19/18 07:29 General appearance: Present: no acute distress, well-nourished, obese - EENT Eyes: Present: PERRL, EOM intact ENT: hearing intact, clear oral mucosa - Neck Neck: Present: supple, normal ROM - Respiratory Respiratory effort: normal Respiratory: bilateral: CTA - Cardiovascular Rhythm: regular Heart Sounds: Present: S1 & S2. Absent: systolic murmur - Extremities Extremities: no ischemia, pulses intact, pulses symmetrical, No edema, normal temperature, normal color, Full ROM Peripheral Pulses: within normal limits - Abdominal General gastrointestinal: soft, non-tender, non-distended, normal bowel sounds - Integumentary Integumentary: Present: clear, warm, dry - Psychiatric Psychiatric: appropriate mood/affect, intact judgment & insight, memory intact, cooperative - Neurologic Neurologic: CNII-XII intact, moves all extremities - Allied Health Allied health notes reviewed: nursing Results - Labs CBC & Chem 7: 12/19/18 11:06 12/19/18 04:24 Labs: Laboratory Last Values WBC 10.4 K/mm3 (4.5-11.0) 12/19/18 04:24 RBC 4.48 M/mm3 (3.65-5.03) 12/19/18 04:24 Hgb 10.7 gm/dl (10.1-14.3) 12/19/18 11:06 Hct 33.1 % (30.3-42.9) 12/19/18 11:06 MCV 81 fl (79-97) 12/19/18 04:24 MCH 26 pg (28-32) L 12/19/18 04:24 MCHC 32 % (30-34) 12/19/18 04:24 RDW 14.2 % (13.2-15.2) 12/19/18 04:24 Plt Count 339 K/mm3 (140-440) 12/19/18 11:06 Lymph % (Auto) 17.8 % (13.4-35.0) 12/19/18 04:24 Carver % (Auto) 5.7 % (0.0-7.3) 12/19/18 04:24 Eos % (Auto) 1.6 % (0.0-4.3) 12/19/18 04:24 Baso % (Auto) 0.8 % (0.0-1.8) 12/19/18 04:24 Lymph # 1.8 K/mm3 (1.2-5.4) 12/19/18 04:24 Carver # 0.6 K/mm3 (0.0-0.8) 12/19/18 04:24 Eos # 0.2 K/mm3 (0.0-0.4) 12/19/18 04:24 Baso # 0.1 K/mm3 (0.0-0.1) 12/19/18 04:24 Seg Neutrophils % 74.1 % (40.0-70.0) H 12/19/18 04:24 Seg Neutrophils # 7.7 K/mm3 (1.8-7.7) 12/19/18 04:24 PT 13.4 Sec. (12.2-14.9) 12/19/18 11:06 INR 1.05 (0.87-1.13) 12/19/18 11:06 APTT 27.4 Sec. (24.2-36.6) 12/19/18 11:06 D-Dimer 1198.76 ng/mlDDU (0-234) H 12/18/18 23:00 VBG pH 7.363 (7.320-7.420) 12/18/18 17:01 Sodium 142 mmol/L (137-145) 12/19/18 04:24 Potassium 5.0 mmol/L (3.6-5.0) 12/19/18 04:24 Chloride 95.3 mmol/L (98-107) L 12/19/18 04:24 Carbon Dioxide 28 mmol/L (22-30) 12/19/18 04:24 Anion Gap 24 mmol/L 12/19/18 04:24 BUN 13 mg/dL (7-17) 12/19/18 04:24 Creatinine 1.8 mg/dL (0.7-1.2) H 12/19/18 04:24 Estimated GFR 35 ml/min 12/19/18 04:24 BUN/Creatinine Ratio 7 % 12/19/18 04:24 Glucose 229 mg/dL (65-100) H 12/19/18 04:24 POC Glucose 242 (70-105) H 12/19/18 11:09 Calcium 8.9 mg/dL (8.4-10.2) 12/19/18 04:24 Magnesium 2.20 mg/dL (1.7-2.3) 12/19/18 11:06 Total Bilirubin 0.40 mg/dL (0.1-1.2) 12/18/18 14:58 AST 23 units/L (5-40) 12/18/18 14:58 ALT 31 units/L (7-56) 12/18/18 14:58 Alkaline Phosphatase 61 units/L (35-129) 12/18/18 14:58 Total Creatine Kinase 109 units/L (30-135) 12/19/18 06:56 CK-MB (CK-2) 2.7 ng/mL (0.0-4.0) 12/19/18 06:56 CK-MB (CK-2) Rel Index 2.4 (0-4) 12/19/18 06:56 Troponin T < 0.010 ng/mL (0.00-0.029) 12/19/18 06:56 Total Protein 7.6 g/dL (6.3-8.2) 12/18/18 14:58 Albumin 4.0 g/dL (3.9-5) 12/18/18 14:58 Albumin/Globulin Ratio 1.1 % 12/18/18 14:58 TSH 0.032 mlU/mL (0.270-4.200) L 12/18/18 16:00 Thyroxine (T4) 6.8 ug/dL (4.0-12.0) 12/18/18 16:00 Active Medications - Current Medications Current Medications: Generic Name Dose Route Start Last Admin Trade Name Freq PRN Reason Stop Dose Admin Acetaminophen 650 mg 12/19/18 00:58 Tylenol PO Q4H PRN Pain MILD(1-3)/Fever >100.5/CALIXTO Dextrose 50 ml 12/19/18 05:48 D50w (25gm) Syringe IV PRN PRN Hypoglycemia Fludrocortisone Acetate 0.1 mg 12/19/18 13:00 12/19/18 13:31 Florinef PO 0.1 mg QDAY ANAT Administration Sodium Chloride 1,000 mls @ 150 mls/hr 12/19/18 10:00 12/19/18 10:12 Nacl 0.9% 1000 Ml IV 150 mls/hr DIRECT ANAT Administration Heparin Sodium/Sodium Chloride 25,000 unit in 500 mls @ 30 mls/hr 12/19/18 13:00 12/19/18 12:15 Heparin/ 0.45% Nacl-25,000 Unit/500 Ml IV 1,500 units/hr TITR ANAT 30 mls/hr Administration Protocol 1,500 UNITS/HR Insulin Human Lispro 0 unit 12/19/18 07:30 12/19/18 11:22 Humalog SUB-Q 4 unit ACHS ANAT Administration Protocol Metoprolol Tartrate 25 mg 12/19/18 11:00 12/19/18 11:21 Lopressor PO 25 mg BID ANAT Administration Ondansetron HCl 4 mg 12/19/18 00:58 Zofran IV Q8H PRN Nausea And Vomiting Oxycodone/Acetaminophen 1 tab 12/19/18 00:58 12/19/18 05:27 Percocet 5/325 PO 1 tab Q6H PRN Administration Pain, Moderate (4-6) Sodium Chloride 10 ml 12/19/18 10:00 12/19/18 10:18 Sodium Chloride Flush Syringe 10 Ml IV Not Given BID ANAT Sodium Chloride 10 ml 12/19/18 00:58 Sodium Chloride Flush Syringe 10 Ml IV PRN PRN LINE FLUSH
[2018-12-19 18:15] LABS: Bilirubin,Urine NEG (Negative); Blood,Urine NEG (Negative); Color,Urine Amber (Yellow); Hyaline Casts,Urine 34 /LPF; Mucus,Urine 1+ /HPF; Urobilinogen,Urine < 2.0 mg/dL (<2.0)
--- NOTE | 2018-12-19 19:22 | Cat Scan Report ---
CT head without contrast CLINICAL HISTORY: Syncope FINDINGS: The motion degrades the image quality at. There is continued a calcification involving the basal ganglia bilaterally which correlates with the earlier CT of 11/29/2018. The ventricular system i s unchanged in size and configuration. There is no clear CT evidence of acute intracranial hemorrhage or significant mass effect. There is a persistent sellar and suprasellar mass with associated expansion at. 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 The visualized paranasal sinuse s areall CT scans at this location are performed using the CT dose reduction for ALARA by means of au tomated exposure control. IMPRESSION: The motion degrades the image quality. However, there is no clear CT evidence of acute intracranial p rocess. 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 Signer Name: Blanco Menjivar MD Signed: 12/19/2018 7:18 PM Workstation Name: [id number]
--- NOTE | 2018-12-19 19:31 | Ultrasound Report ---
ULTRASOUND RENAL INDICATION: bernie. COMPARISON: Abdominal/pelvic CT scan 11/30/2018. FINDINGS: RIGHT KIDNEY: Size: 11.4 cm. Echogenicity: Normal. Cortical thickness: Normal. Stones: None. Hydronephrosis: None. Cyst or mass: A 9 cm complex, multicystic mass with areas of acoustical shadowing. This corresponds t o the complex septated right renal mass noted on CT.. LEFT KIDNEY: Size: 10.6 cm. Echogenicity: Normal. Cortical thickness: Normal. Stones: None. Hydronephrosis: None. Cyst or mass: None. Urinary Bladder: Minimal bladder distention. Free Fluid: None. Additional Findings: None. IMPRESSION 1. No acute sonographic abnormality of the kidneys. 2. Complex cystic right renal mass, as noted on recent abdominal CT scan. Signer Name: Andrez Clemons MD Signed: 12/19/2018 7:27 PM Workstation Name: [id number]
[2018-12-20] MEDS: INSULIN LISPRO 100 UNIT/ML SUB-Q SCH (01:58)
[2018-12-20] MEDS: oxyCODONE /ACETAMINOPHEN 5-325MG TAB PO PRN (03:21)
[2018-12-20] MEDS: SODIUM CHLORIDE 0.9% 1000 ML 1,000 ML IV SCH (03:29)
--- NOTE | 2018-12-20 10:43 | Progress Note ---
Assessment and Plan Paroxysmal atrial fibrillation with RVR Pt was noted to be in paroxysmal atrial fibrillation with RVR in ED. On evaluation, pt is currently in SR, no AFib noted since initiation of remote telemetry. New diagnosis. Suspect precipitated by n/v/d, dehydration, hypomag. Cont lopressor. TSH noted to be low - further eval/management per primary. Echo reviewed - EF 50-55%, abnormal diastolic function, mild to mod LVH. D/c heparin gtt. Initiate Eliquis. Plan for lexiscan MPI stress test in AM. NPO after MN. Recurrent syncope Suspect r/t n/v/d, dehydration. Consider head CT per primary. Echo reviewed - EF 50-55%, abnormal diastolic function, mild to mod LVH. Plan for lexiscan MPI stress test in AM. NPO after MN. Elevated DDimer V/Q scan low prob for PE. Nausea, vomiting and diarrhea Currently improved, pt tolerating PO intake. SALMA / dehydration Nephrology following. IVF initiated. Hypomagnesemia Repleted. HTN HLP DM with hyperglycemia Obesity The patient has been seen in conjunction with Dr. Sloan who agrees with the assessment and plan of care. Subjective Date of service: 12/20/18 Principal diagnosis: n/v/d, syncope, afib Interval history: pt resting in bed, states she is feeling better. tele reviewed - in SR overnight, no AFib noted. Objective Last Vital Signs Temp 98.0 F 12/20/18 03:36 Pulse 85 12/20/18 03:36 Resp 18 12/20/18 03:36 BP 128/64 12/20/18 03:36 Pulse Ox 91 12/20/18 03:36 - Physical Examination General: No Apparent Distress HEENT: Positive: PERRL, Normocephaly, Mucus Membranes Moist Neck: Positive: neck supple Cardiac: Positive: Reg Rate and Rhythm, S1/S2 Lungs: Positive: Decreased Breath Sounds Neuro: Positive: Grossly Intact Abdomen: Positive: Soft. Negative: Tender Skin: Negative: Rash Musculoskeletal: No Pain Extremities: Absent: edema - Labs and Meds Coagulation 12/19/18 Range/Units 11:06 PT 13.4 (12.2-14.9) Sec. INR 1.05 (0.87-1.13) APTT 27.4 (24.2-36.6) Sec. CBC 12/19/18 Range/Units 11:06 Hgb 10.7 (10.1-14.3) gm/dl Hct 33.1 (30.3-42.9) % Plt Count 339 (140-440) K/mm3 - Imaging and Cardiology EKG: report reviewed, image reviewed Echo: pending - EKG Sinus rhythms and dysrhythmias: sinus rhythm
[2018-12-20] MEDS: FLUDROCORTISONE 0.1 MG TAB PO SCH (11:08)
[2018-12-20] MEDS: METOPROLOL TARTRATE 25 MG TAB PO SCH ×2 (11:08→22:07)
[2018-12-20 13:28] LABS: BUN/Creatinine Ratio 7; Blood Urea Nitrogen 8 mg/dL (7-17); Hemolysis Index 4
--- NOTE | 2018-12-20 15:21 | Progress Note ---
Assessment and Plan Paroxysmal Afib with RVR Acute Gastroenteritis with intractable nausea and vomiting-Resolved Near syncope X3 Subclinical Hypothyrodisim Acute Kidney Injury secondary to vasomotor Nephropathy Diabetes Hypertension Dehydration Elevated D.Dimer-v/q Scan shows low probablity Hyperlipidemia Morbid obesity Plan Continue supportive care Cardiology input noted, continue Heparin gtt and Metoprolol Echo pending CT head to eval for any centeral origin of syncope Nephrology consult Fingersticks initiate insulin sliding scale dvt/gi PROPHY Dispo based on Renal recovery and Cardiology recommendation. Plan discussed with the patient Subjective Date of service: 12/20/18 Principal diagnosis: n/v/d, syncope, afib Interval history: 53-year-old woman with a history of hypertension, diabetes, glaucoma comes emergency room with complaint of feeling weak, dehydrated. She has been having nausea vomiting 2 days and state that she had 3 episodes of syncope yesterday lasting briefly. I'll been able to eat. She was recently seen by her doctor for thyroid problems she has to follow-up. Emergency room she was noted to be in paroxysmal A. fib which converted to normal sinus Objective - Constitutional Vitals: Vital Signs - 12hr 12/20/18 12/20/18 12/20/18 03:36 09:42 10:00 Temperature 98.0 F 98.2 F Pulse Rate 85 55 L 76 Respiratory 18 18 Rate Blood Pressure 128/64 148/76 O2 Sat by Pulse 91 88 Oximetry General appearance: Present: no acute distress, well-nourished - EENT Eyes: PERRL, EOM intact ENT: hearing intact, clear oral mucosa Ears: bilateral: normal - Neck Neck: supple, normal ROM - Respiratory Respiratory effort: normal Respiratory: bilateral: CTA - Breasts Breasts: normal - Cardiovascular Rhythm: regular Heart Sounds: Present: S1 & S2. Absent: gallop, rub Extremities: pulses intact, No edema, normal color, Full ROM - Gastrointestinal General gastrointestinal: Present: soft, non-tender, non-distended, normal bowel sounds - Genitourinary Female genitourinary: normal - Integumentary Integumentary: clear, warm, dry - Musculoskeletal Musculoskeletal: 1, strength equal bilaterally - Neurologic Neurologic: moves all extremities - Psychiatric Psychiatric: memory intact, appropriate mood/affect, intact judgment & insight - Labs CBC & Chem 7: 12/21/18 03:45 12/20/18 12:20 Labs: Abnormal lab results 12/19/18 12/19/18 12/20/18 Range/Units 16:58 20:54 08:33 Glucose (65-100) mg/dL POC Glucose 202 H 197 H 170 H (70-105) Calcium (8.4-10.2) mg/dL 12/20/18 Range/Units 12:20 Glucose 215 H (65-100) mg/dL POC Glucose (70-105) Calcium 8.0 L (8.4-10.2) mg/dL
--- NOTE | 2018-12-20 15:58 | Progress Note ---
Assessment and Plan - Patient Problems (1) SALMA (acute kidney injury) Current Visit: Yes Status: Acute Plan to address problem: Acute kidney injury resolved baseline creatinine: 1.0mg/dl Peak creatinine : 1.8mg/dl Current creatinine 1.1 mg/DL Received 500cc saline bolus. Reduced maintenance fluids to 75 mL an hour obtain a UA Reviewed renal US shows complex cyst Complex cystic mass in right kidney on CT Recommend chronic kidney disease follow-up on discharge (2) Paroxysmal A-fib Current Visit: Yes Status: Acute Plan to address problem: Paroxysmal Afib - Previous EKG showed afib on arrival -continue telemetry -cardiology following -Check electrolytes Mg >2, K : about 4meq/L (3) HTN (hypertension) Current Visit: No Status: Chronic Qualifiers: Hypertension type: essential hypertension Qualified Code(s): I10 - Ess ential (primary) hypertension Plan to address problem: HTN: controlled avoid hypotension. (4) Diabetes mellitus type 2, uncontrolled Current Visit: Yes Status: Chronic Plan to address problem: DM type II :uncontrolled Ensure Medications Monitior fingersticks Hold Metformin given SALMA. (5) Renal mass, right Current Visit: No Status: Acute Plan to address problem: Complex cystic lesion on right kidney on previous ultrasound Review renal US with complex lesion recommend urology evaluation inpatient otherwise needs outpatient referral on discharge for urology for evaluation of complex cysts rule out mass We'll sign off thank you for consultation Subjective Principal diagnosis: n/v/d, syncope, afib Interval history: Patient's was seen today very much better denies fevers or chills denies any recent syncopal events since admission complains of some numbness on the right side no weakness in extremities 53 year old with medical history significant for HTN, DM type II uncontrolled, admitted with complaints of nausea, vomiting and diarrhoea for several days prior to admission . Patient has a remote history of NSAID use. Denies any orthopnea or PND. She admits to decreased urine output. Denies any fevers or chills. She denies any dysuria or frequent urination. She denies any shortness of breath or exertional dyspnea. She had multiple episodes of syncope before she arrived She takes metformin as well. Objective - Vital Signs Vital signs: Vital Signs - 12hr 12/20/18 12/20/18 09:42 10:00 Temperature 98.2 F Pulse Rate 55 L 76 Respiratory 18 Rate Blood Pressure 148/76 O2 Sat by Pulse 88 Oximetry - General Appearance General appearance: well-developed, well-nourished EENT: ATNC, PERRL Neck: no JVD Respiratory: Present: Clear to Ascultation Cardiology: regular, S1S2 Gastrointestinal: normal, normoactive bowel sounds Neurologic: alert and oriented x3, CN 3-12 intact Psychiatric: mood/affect appropriate - Lab 12/19/18 11:06 12/20/18 12:20 Most recent lab results Calcium 8.0 mg/dL (8.4-10.2) L 12/20/18 12:20 Magnesium 2.20 mg/dL (1.7-2.3) 12/19/18 11:06 - Imaging Chest x-ray: image reviewed (I reviewed chest x-ray without overt edema) Kidney/bladder ultrasound: image reviewed (I reveal renal ultrasound with concern for COMPLEX CYSTS) Medications & Allergies - Medications Allergies/Adverse Reactions: Allergies Latex, Natural Rubber Allergy (Verified 11/30/18 12:53) Itching shellfish derived Allergy (Verified 11/30/18 12:53) Rash Home Medications: Home Medications Medication Instructions Recorded Confirmed Last Taken Type Insulin Regular, Human [HumuLIN R] 10 units SQ QHS 11/30/18 12/18/18 12/17/18 History Insulin Glargine [Lantus VIAL] 10 units SUB-Q QHS #10 units 12/04/18 12/18/18 12/17/18 Rx Ondansetron [Zofran ODT TAB] 4 mg PO Q8HR PRN #20 tab.rapdis 12/04/18 12/18/18 12/17/18 Rx Pantoprazole [Protonix TAB] 40 mg PO DAILY #30 tablet 12/04/18 12/18/18 12/17/18 Rx SUMAtriptan succinate [Imitrex] 25 mg PO Q2H PRN #10 tablet 12/04/18 12/18/18 12/17/18 Rx amLODIPine [Norvasc] 10 mg PO DAILY #30 tablet 12/04/18 12/18/18 12/17/18 Rx metFORMIN [Glucophage] 500 mg PO BID #60 tablet 12/04/18 12/18/18 12/17/18 Rx Active Medications: Generic Name Dose Route Start Last Admin Trade Name Freq PRN Reason Stop Dose Admin Acetaminophen 650 mg 12/19/18 00:58 Tylenol PO Q4H PRN Pain MILD(1-3)/Fever >100.5/CALIXTO Apixaban 5 mg 12/20/18 22:00 Eliquis PO Q12HR ANAT Protocol Fludrocortisone Acetate 0.1 mg 12/19/18 13:00 12/20/18 11:08 Florinef PO 0.1 mg QDAY ANAT Administration Sodium Chloride 1,000 mls @ 150 mls/hr 12/19/18 10:00 12/20/18 03:29 Nacl 0.9% 1000 Ml IV 150 mls/hr DIRECT ANAT Administration Metoprolol Tartrate 25 mg 12/19/18 11:00 12/20/18 11:08 Lopressor PO 25 mg BID ANAT Administration Ondansetron HCl 4 mg 12/19/18 00:58 12/20/18 03:51 Zofran IV 4 mg Q8H PRN Administration Nausea And Vomiting Oxycodone/Acetaminophen 1 tab 12/19/18 00:58 12/20/18 03:21 Percocet 5/325 PO 1 tab Q6H PRN Administration Pain, Moderate (4-6) Sodium Chloride 10 ml 12/19/18 10:00 12/20/18 11:12 Sodium Chloride Flush Syringe 10 Ml IV 10 ml BID ANAT Administration Sodium Chloride 10 ml 12/19/18 00:58 Sodium Chloride Flush Syringe 10 Ml IV PRN PRN LINE FLUSH
[2018-12-20] MEDS: APIXABAN 5 MG TAB PO SCH (22:07)
[2018-12-21 04:58] LABS: Hematocrit 30.8 % (30.3-42.9); Hemoglobin 9.8 gm/dl (10.1-14.3)
[2018-12-21] MEDS ORDERED: REGADENOSON 0.4 MG/5 ML INJ IV ONE ×2 (08:00→08:04)
--- NOTE | 2018-12-21 08:23 | Progress Note ---
Assessment and Plan parox afib. now nsr vss for stress mpi today. further rec to follow continue current care - Patient Problems (1) Paroxysmal A-fib Current Visit: Yes Status: Acute Subjective Date of service: 12/21/18 Principal diagnosis: n/v/d, syncope, afib Interval history: pt currently denies cp or sob. no palp Objective Vital Signs Temp Pulse Resp BP Pulse Ox 12/21/18 04:19 98.0 F 72 20 144/63 97 12/20/18 23:45 98.0 F 68 18 121/62 96 12/20/18 19:20 98.7 F 80 20 166/82 98 12/20/18 16:51 98.5 F 55 L 18 151/79 89 12/20/18 11:59 97.5 F L 18 128/63 12/20/18 10:00 76 12/20/18 09:42 98.2 F 55 L 18 148/76 88 - Physical Examination General: No Apparent Distress HEENT: Positive: PERRL, Normocephaly, Mucus Membranes Moist Neck: Positive: neck supple Cardiac: Positive: Reg Rate and Rhythm Lungs: Positive: clear to auscultation Neuro: Positive: Grossly Intact Abdomen: Positive: Soft. Negative: Tender Skin: Negative: Rash Musculoskeletal: No Pain Extremities: Absent: edema - Labs and Meds CBC 12/21/18 Range/Units 03:45 Hgb 9.8 L (10.1-14.3) gm/dl Hct 30.8 (30.3-42.9) % Plt Count 312 (140-440) K/mm3 Comprehensive Metabolic Panel 12/20/18 Range/Units 12:20 Sodium 137 (137-145) mmol/L Potassium 4.0 (3.6-5.0) mmol/L Chloride 99.6 (98-107) mmol/L Carbon Dioxide 27 (22-30) mmol/L BUN 8 (7-17) mg/dL Creatinine 1.1 (0.7-1.2) mg/dL Glucose 215 H (65-100) mg/dL Calcium 8.0 L (8.4-10.2) mg/dL - Imaging and Cardiology EKG: report reviewed, image reviewed Echo: pending - EKG Sinus rhythms and dysrhythmias: sinus rhythm
[2018-12-21 09:39] VITALS: BP 148/71
--- NOTE | 2018-12-21 10:29 | Event Note ---
Date: 12/21/18 lexiscan stress mpi: normal post stress lv systolic function. no evidence of myocardial ischemia or necrosis
--- NOTE | 2018-12-21 10:45 | Treadmill Report ---
NUCLEAR CARDIAC IMAGING INDICATION FOR PROCEDURE: Chest pain. Informed consent was obtained. Vasodilator stress was achieved with the intravenous administration of 0.4 mg of Lexiscan per protocol. Rest and stress nuclear cardiac imaging were performed following the intravenous administration of 10 and 28 mCi of technetium-99m and Myoview respectively per protocol. Gated SPECT imaging demonstrates a post-stress left ventricular ejection fraction of 57%. Myocardial perfusion imaging demonstrates no significant cavity change between stress and rest. The distribution of the isotope throughout the left ventricle is homogeneous during stress. There are no stress-induced perfusion abnormalities. Nuclear cardiac imaging demonstrates grossly normal post-stress left ventricular systolic function with no significant evidence of myocardial ischemia or necrosis. [facility]# [id number] KAYLA/PRINCESS
[2018-12-21] MEDS: METOPROLOL TARTRATE 25 MG TAB PO SCH (12:31)
[2018-12-21] MEDS: FLUDROCORTISONE 0.1 MG TAB PO SCH (12:31)
[2018-12-21] MEDS: APIXABAN 5 MG TAB PO SCH (12:31)
--- NOTE | 2018-12-21 13:16 | Discharge Summary ---
Providers - Providers Date of Admission: 12/18/18 22:57 Date of discharge: 12/21/18 Attending physician: RICARDO RUTHERFORD 12/19/18 00:58 Consult to Physician [CONS] Routine Comment: Consulting Provider: LEANNA ARDON Physician Instructions: Reason For Exam: afib 12/19/18 08:56 Consult to Physician [CONS] Routine Comment: Consulting Provider: MAXINE HORNE Physician Instructions: Reason For Exam: SALMA Primary care physician: GRETEL AGUIRRE Hospitalization Condition: Stable Pertinent studies: lexiscan stress mpi: normal post stress lv systolic function. no evidence of myocardial ischemia or necrosis Hospital course: 53-year-old woman with a history of hypertension, diabetes, glaucoma comes emergency room with complaint of feeling weak, dehydrated. She has been having nausea vomiting 2 days and state that she had 3 episodes of syncope yesterday lasting briefly. Able to eat. She was recently seen by her doctor for thyroid problems she has to follow-up. In Emergency room she was noted to be in paroxysmal A. fib which converted to normal sinus Paroxysmal Afib with RVR--resolved Acute Gastroenteritis with intractable nausea and vomiting-Resolved Near syncope X3 --Lexiscan normal--Vasovagal Subclinical Hypothyrodisim Acute Kidney Injury secondary to vasomotor Nephropathy---removed Diabetes--Discharge on Novolin 70/30 15 units bid Hypertension --controlled Dehydration--resolved Elevated D.Dimer-v/q Scan shows low probablity Hyperlipidemia---statins Morbid obesity---obesity Afib resolved Lexiscan---Normal Disposition: DC-01 TO HOME OR SELFCARE Core Measure Documentation - Palliative Care Palliative Care/ Comfort Measures: Not Applicable - Core Measures Any of the following diagnoses?: none Exam - Constitutional Vitals: Temp Pulse Resp BP Pulse Ox 98.2 F 72 18 148/71 98 12/21/18 09:36 12/21/18 12:31 12/21/18 09:36 12/21/18 12:31 12/21/18 09:36 General appearance: Present: no acute distress, well-nourished - EENT Eyes: Present: PERRL ENT: hearing intact, clear oral mucosa - Neck Neck: Present: supple, normal ROM - Respiratory Respiratory effort: normal Respiratory: bilateral: CTA - Cardiovascular Heart rate: 78 Rhythm: regular Heart Sounds: Present: S1 & S2. Absent: rub, click - Extremities Extremities: no ischemia, pulses symmetrical, No edema Peripheral Pulses: within normal limits - Abdominal General gastrointestinal: Present: soft, non-tender, non-distended, normal bowel sounds Female genitourinary: Present: normal - Integumentary Integumentary: Present: clear, warm, dry - Musculoskeletal Musculoskeletal: gait normal, strength equal bilaterally - Psychiatric Psychiatric: appropriate mood/affect, intact judgment & insight - Neurologic Neurologic: CNII-XII intact, moves all extremities - Allied Health Allied health notes reviewed: nursing, case management Plan Activity: no restrictions Diet: low fat, low cholesterol, low salt Follow up with: GRETEL AGUIRRE MD [Primary Care Provider] - 7 Days SANTA ROONEY MD [Staff Physician] - 7 Days
== END 2018-12-21 17:50 | disposition home or self-care (01) | DRG 308 ==
LOC: ED 13:48 → 4A 22:57
PROVIDERS: ADMIT Internal Medicine; ATTEND Internal Medicine
DX: I48.0 Paroxysmal atrial fibrillation (principal); E11.00 Type 2 diabetes mellitus with hyperosmolarity without nonketotic hyperglycemic-hyperosmolar coma (NKHHC); N17.0 Acute kidney failure with tubular necrosis; R55 Syncope and collapse; I10 Essential (primary) hypertension; E86.0 Dehydration; E83.42 Hypomagnesemia; K52.9 Noninfective gastroenteritis and colitis, unspecified; E66.01 Morbid (severe) obesity due to excess calories; N28.89 Other specified disorders of kidney and ureter; G43.909 Migraine, unspecified, not intractable, without status migrainosus; J45.909 Unspecified asthma, uncomplicated; E02 Subclinical iodine-deficiency hypothyroidism; E78.5 Hyperlipidemia, unspecified; Z68.36 Body mass index [BMI] 36.0-36.9, adult; Z91.040 Latex allergy status; Z91.013 Allergy to seafood; Z79.899 Other long term (current) drug therapy; Z79.4 Long term (current) use of insulin; Z90.49 Acquired absence of other specified parts of digestive tract; Z82.49 Family history of ischemic heart disease and other diseases of the circulatory system; Z83.3 Family history of diabetes mellitus
CPT/HCPCS: 36415; 70450; 71045; 76770; 78452; 78582; 80048; 80053; 81001; 82550; 82553; 82805; 82962; 83735; 84436; 84443; 84484; 85014; 85018; 85025; 85049; 85379; 85520; 85610; 85730; 93005; 93010; 93017; 93306; G0378; A9502; A9540; A9558; J1630; J1644; J1815; J2405; J2785; J3475; J7030; J7040